=== PATIENT | female | born 1945 | race Caucasian/White ===

== ENCOUNTER → 2020-03-26 16:29 | Outpatient (CLI) | payer OTHER, SELFPAY ==
--- NOTE | 2020-03-26 | DI.MG.S_ITS ---
BILATERAL DIGITAL SCREENING MAMMOGRAM 3D/2D WITH CAD: 03/26/2020 CLINICAL: Routine screening. Comparison is made to exams dated: 11/20/2013 mammogram and 02/07/2015 mammogram - [facility]. There are scattered fibroglandular elements in both breasts. Current study was also evaluated with a Computer Aided Detection (CAD) system. No significant masses, calcifications, or other findings are seen in either breast. There has been no significant interval change. IMPRESSION: NEGATIVE There is no mammographic evidence of malignancy. A 1 year screening mammogram is recommended. This exam was interpreted at Station ID: [id number]. NOTE: For mammograms, a report in lay terms will be sent to the patient. Approximately 15% of breast malignancies will not be visualized mammographically. In the management of a palpable breast mass, a negative mammogram must not discourage biopsy of a clinically suspicious lesion. Electronically Signed By: Mauricio gardner/joni:03/26/2020 17:36:31 letter sent: Normal Exam ACR BI-RADS Category 1: Negative [id number]
== END ==
PROVIDERS: Family Provider Physician Assistant; PCP Student in an Organized Health Care Education/Training Program; Referring Provider Student in an Organized Health Care Education/Training Program; Visit Provider Student in an Organized Health Care Education/Training Program
DX: Z12.31 Encounter for screening mammogram for malignant neoplasm of breast (principal)
CPT/HCPCS: 77063; 77067

== ENCOUNTER → 2020-03-29 17:12 | Outpatient (ROUT) | payer OTHER, SELFPAY ==
[2020-03-30 16:13] LABS: Lactoferrin, Fecal Quant <1.00 ug/mL(g) (0.00-7.24)
== END ==
PROVIDERS: Family Provider Physician Assistant; PCP Student in an Organized Health Care Education/Training Program; Visit Provider Student in an Organized Health Care Education/Training Program
DX: R19.7 Diarrhea, unspecified (principal)
CPT/HCPCS: 83631; 87045; 87177; 87899

== ENCOUNTER 2020-04-25 17:34 | Emergency (ER) | payer OTHER, SELFPAY ==
[2020-04-25 17:35] VITALS: BP 189/83; PULSE 64; RESP 16; O2SAT 98
--- NOTE | 2020-04-25 18:29 | ED_ITS ---
HPI - General Adult General Chief complaint: Abdominal Pain Stated complaint: throat issues, trouble swallowing Time Seen by Provider: 04/25/20 17:53 Source: patient Mode of arrival: Ambulatory Limitations: no limitations History of Present Illness HPI narrative: 74F nonsmoker with history of cervical cancer, HTN, H yperlipidemia presents with a chief complaint of inability to eat or drink anything over the course of the day. And he she denies any specific memorable event but states all day long any time she attempts to eat or drink anything she feels it gets ?caught up ?in the bottom of her throat and then she states it comes right back up. She denies any definite history of the same nor any history of endoscopy. She has no runny nose, sore throat or cough. She has no chest pain or shortness of breath. She denies any fever or chills and reports no known history of exposure to persons with COVID. About 1 year ago she suffered the loss of her and understandably has had a very difficult time. She reports difficulty with appetite and unexplained weight loss which her doctor state is due to depression over that time frame. She does not of a significant alcohol history, but does admit the occasional glass of wine Onset (ago): hour(s) Location: neck Related Data Home Medications Medication Instructions Recorded Confirmed amlodipine 10 mg tablet 10 mg PO DAILY 02/10/18 02/10/18 aspirin 81 mg chewable tablet 81 mg PO DAILY 02/10/18 02/10/18 atorvastatin 20 mg tablet 20 mg PO DAILY 02/10/18 02/10/18 Previous Rx's Medication Instructions Recorded esterified estrogens [Menest] 0.625 mg PO QDAY #30 tab 11/04/16 esterified 1 tab PO Q DAY #30 tab 01/21/18 estrogens-methyltestosterone 0.625 mg-1.25 mg tablet estradiol 1.25 gram/actuation 1.25 gram TRANSDERMAL DAILY #50 02/10/18 (0.06%) transdermal gel pump gram Allergies Allergy/AdvReac Type Severity Reaction Status Date / Time lisinopril [LISINOPRIL] Allergy Severe ANGIOEDEMA Verified 04/25/20 19:49 AND COUGH tizanidine [TIZANIDINE] Allergy Severe FACIAL Verified 04/25/20 19:49 SWELLING Review of Systems Constitutional Constitutional: Denies chills, Denies fatigue, Denies fever(s), Denies frequent falls, Denies lethargy and Denies weakness Eyes Eyes: Denies change in vision, Denies eye discharge, Denies irritation and Denies loss of vision ENT Ears, Nose, Mouth, and Throat: Denies change in voice, Denies dizziness, Denies neck pain, Denies sore throat and Denies throat swelling Comments: something in throat Cardiovascular Cardiovascular: Denies chest pain, Denies irregular heart rhythm, Denies l ightheadedness, Denies palpitations, Denies dyspnea, Denies dyspnea on exertion and Denies orthopnea Respiratory Respiratory: Denies cough, Denies dyspnea, Denies dyspnea on exertion and Denies wheezing Gastrointestinal Gastrointestinal: Denies abdominal pain, Denies change in bowel habits, Denies diarrhea, Denies nausea and Denies vomiting Musculoskeletal Musculoskeletal: Denies neck pain and Denies numbness Integumentary/Breasts Skin/Breast: Denies pruritus, Denies erythema, Denies rash and Denies wounds Neurologic Neurologic: Denies behavioral changes, Denies confusion, Denies dizziness, Denies frequent falls, Denies loss of vision, Denies numbness and Denies weakness Psychiatric Psychiatric: Denies anxiety, Denies behavioral changes, Denies confusion, Denies depression, Denies homicidal ideation and Denies suicidal ideation Endocrine Endocrine: Denies fatigue, Denies flushing and Denies palpitations Hematologic/Lymphatic Hematologic/Lymphatic: Denies easy bruising Allergic/Immunologic Allergic/Immunologic: Denies urticaria, Denies throat swelling and Denies wheezing Patient History Medical History Hypertension Surgical History Status post hysterectomy Social History Smoking Status: Never smoker Smoking Status: Never smoker alcohol intake frequency: 0-2 drinks per day Substance Use Type: does not use Exam Narrative Exam Narrative: GENERAL: [74] year old patient appears stated age. Well- nourished, well-developed patient, in mild distress. Holding an emesis bag. No respiratory distress, no difficulties controlling secretions. HEAD: Atraumatic. Normocephalic. EYES: Pupils equal round and reactive. Extraocular motions intact. No scleral icterus. No injection or drainage. ENT: Nose without bleeding, purulent drainage. Throat without erythema, tonsillar hypertrophy or exudate. Airway patent. NECK: Trachea midline. Non tender CARDIOVASCULAR: Regular rate and rhythm without murmurs, gallops, or rubs. RESPIRATORY: Clear to auscultation. Breath sounds equal bilaterally. No wheezes, rales, or rhonchi. GASTROINTESTINAL: Abdomen soft, non-tender, nondistended. EXTREMITIES: No edema or joint tenderness. BACK: Nontender without deformity or crepitance. No flank tenderness. NEURO: AOx3. SKIN: No rash or erythema of visible areas Initial Vital Signs Initial Vital Signs: Vital Signs Pulse Rate 64 04/25/20 17:35 Respiratory Rate 16 04/25/20 17:35 Blood Pressure 189/83 H 04/25/20 17:35 Pulse Oximetry 98 04/25/20 17:35 Course Course Course Narrative: Early in her visit she was given lukewarm kate temo and soon after taking a few sips she vomited it up. At that time IV and labs were ord ered, COVID swab performed an call was placed to surgery. She was given glucagon through the IV and 30 seconds later took another sip of the kate temo. She nearly immediately vomited, this time likely a larger volumes and she had just consumed. After this she still felt a fullness in the bottom of her throat and 3 subsequent attempts at swallowing liquids were met with a recurrence of vomiting. I discussed the case with General surgery and they requested imaging to rule out an masses or lesions. Upon receipt of the CT which noted circumferential thickening of the mid to distal esophagus they suggested patient be transferred to a facility with GI and Thoracic given the potential need for more definitive esophageal care and likely need for intervention that cannot be performed here. Patient and daughter made aware of the diagnosis and plan. They understand and agree. Orders Ordered: ED Orders 04/25/20 18:43 Complete Blood Count AUTO DIFF Stat Comprehensive Metabolic Panel Stat Ketones (Beta-Hydroxybutyrate) Stat 04/25/20 19:27 COVID19 Stat 04/25/20 19:46 CT chest abd pel w con Urgent Sodium Chloride (Normal Saline 0.9%) 1,000 mls @ 125 mls/hr IV CONT JESSICA Last Admin: 04/25/20 19:11 Dose: 125 mls/hr Documented by: KERRIE Discontinued Medications Glucagon (Glucagon,Human Recombinant 1 Mg/Ml Vial) 1 mg IV NOW ONE Stop: 04/25/20 19:29 Last Admin: 04/25/20 19:50 Dose: 1 mg Documented by: KERRIE Consultations Consultation #1: inital call to Dr. Stanford. Requests imaging, and upon completion of imaging states his concern regarding the findings of the distal esophagus and recommends transfer (noted above in more detail) Consultation #2: call to [facility], and transfer coordinated by them. Available bed at [place] and accepting provider is Dr. Benavidez. Vital Signs Vital signs: Vital Signs - 8 hr 04/25/20 17:35 04/25/20 21:10 04/25/20 22:57 Pulse Rate 64 70 63 Respiratory Rate 16 20 14 Blood Pressure 189/83 H 178/86 H 164/77 H Pulse Oximetry 98 98 95 Medical Decision Making Lab Data Result diagrams: 04/25/20 18:43 04/25/20 18:43 Labs: Lab Results 04/25/20 04/25/20 04/25/20 Range/Units 18:43 18:43 18:43 WBC 4.3 L (4.5-11.0) X10^3/uL RBC 3.83 L (4.0-5.2) X10^6/uL Hgb 13.2 (12.0-16.0) g/dL Hct 38.7 (36-46) % MCV 101.0 H (80-100) fL MCH 34.4 H (26-34) PG MCHC 34.1 (30-36) % RDW 13.9 (11.6-14.8) % Plt Count 216 (150-400) X10^3/uL Neut % (Auto) 60.7 (50-75) % Lymph % (Auto) 24.8 L (25-40) % [place] % (Auto) 9.2 (3-14) % Eos % (Auto) 4.1 H (2-4) % Baso % (Auto) 1.2 (0-2) % Neut # (Auto) 2600 (6139-3551) /uL Lymph # (Auto) 1100 (1795-0348) /uL [place] # (Auto) 400 (0-900) /uL Eos # (Auto) 200 (0-450) /uL Baso # (Auto) 100 (0-100) /uL Sodium 140 (137-145) mmol/L Potassium 4.6 (3.4-5.1) mmol/L Chloride 106 (98-107) mmol/L Carbon Dioxide 32 (22-32) mmol/L BUN 22 H (7-17) mg/dL Creatinine 1.19 H (0.52-1.04) mg/dL Estimated GFR 44.5 L (>60) mL/min BUN/Creatinine Ratio 18.5 (6-22) Glucose 95 (80-110) mg/dL Calcium 9.7 (8.4-10.2) mg/dL Total Bilirubin 1.0 (0.2-1.3) mg/dL AST TNP ALT 16 (<35) IU/L Alkaline Phosphatase 42 (38-126) U/L Total Protein 8.0 (6.3-8.2) g/dL Albumin 4.3 (3.5-5.0) g/dL Globulin 3.7 (1.7-4.1) g/dL Albumin/Globulin Ratio 1.2 (1.0-2.8) Ketones 0.58 H (<0.27) mmol/L COVID-19 PCR (Negative) 04/25/20 Range/Units 19:27 WBC (4.5-11.0) X10^3/uL RBC (4.0-5.2) X10^6/uL Hgb (12.0-16.0) g/dL Hct (36-46) % MCV (80-100) fL MCH (26-34) PG MCHC (30-36) % RDW (11.6-14.8) % Plt Count (150-400) X10^3/uL Neut % (Auto) (50-75) % Lymph % (Auto) (25-40) % [place] % (Auto) (3-14) % Eos % (Auto) (2-4) % Baso % (Auto) (0-2) % Neut # (Auto) (1538-0965) /uL Lymph # (Auto) (2776-7280) /uL [place] # (Auto) (0-900) /uL Eos # (Auto) (0-450) /uL Baso # (Auto) (0-100) /uL Sodium (137-145) mmol/L Potassium (3.4-5.1) mmol/L Chloride (98-107) mmol/L Carbon Dioxide (22-32) mmol/L BUN (7-17) mg/dL Creatinine (0.52-1.04) mg/dL Estimated GFR (>60) mL/min BUN/Creatinine Ratio (6-22) Glucose (80-110) mg/dL Calcium (8.4-10.2) mg/dL Total Bilirubin (0.2-1.3) mg/dL AST ALT (<35) IU/L Alkaline Phosphatase (38-126) U/L Total Protein (6.3-8.2) g/dL Albumin (3.5-5.0) g/dL Globulin (1.7-4.1) g/dL Albumin/Globulin Ratio (1.0-2.8) Ketones (<0.27) mmol/L COVID-19 PCR Negative (Negative) Urine Dip Bedside Urine Glucose Negative Bedside Urine Bilirubin - Negative Bedside Urine Ketone +/- 5 Urine Specific [place] 1.010 Bedside Urine Occult Blood - Negative Bedside Urine pH 7.5 Bedside Urine Urobilinogen - Negative Bedside Urine Nitrite - Negative Bedside Urine Leukocytes - Negative Esterase Point of care testing: Urine Dip Bedside Urine Glucose Negative Bedside Urine Bilirubin - Negative Bedside Urine Ketone +/- 5 Urine Specific [place] 1.010 Bedside Urine Occult Blood - Negative Bedside Urine pH 7.5 Bedside Urine Urobilinogen - Negative Bedside Urine Nitrite - Negative Bedside Urine Leukocytes - Negative Esterase Critical Care Time Critical Care Time Critical Care Time: Yes Total Critical Care Time: 30 Attestation: The high probability of a clinically significant, sudden or life threatening deterioration of the [GI] system(s) required my full and direct attention, intervention and personal management. The aggregate critical care time was [30] minutes. This time is in addition to time spent performing reported procedures but includes the following: [x] Data Review and interpretation [x Patient assessment and monitoring of vital signs [x] Documentation [x Medication orders and management Discharge Plan Departure Patient Disposition: [facility] Clinical Impression: Distal esophageal obstruction due to foreign body Prescriptions: No Action esterified estrogens [Menest] 0.625 MG tablet 0.625 mg PO QDAY Qty: 30 RF: 6 estrogens-methyltestosterone [EEMT HS] 0.625-1.25 mg tablet 1 tab PO Q DAY Qty: 30 RF: 3 amlodipine 10 mg tablet 10 mg PO DAILY RF: 0 aspirin 81 mg tablet,chewable 81 mg PO DAILY RF: 0 atorvastatin [Lipitor] 20 mg tablet 20 mg PO DAILY RF: 0 estradiol 1.25 gram/actuation gel in metered-dose pump 1.25 gram Transdermal DAILY Qty: 50 RF: 0 Referrals: Gayatri Kamara MD [Primary Care Provider] -
[2020-04-25 18:54] LABS: Add Manual Diff / Slide Review NO; Basophils Absolute Auto 100 /uL (0-100); Basophils Percent Auto 1.2 % (0-2); Eosinophils Absolute Auto 200 /uL (0-450); Eosinophils Percent Auto 4.1 % (2-4); Hematocrit 38.7 % (36-46); Hemoglobin 13.2 g/dL (12.0-16.0); Lymphocytes Absolute Auto 1100 /uL (1100-4500); Lymphocytes Percent Auto 24.8 % (25-40); Mean Corpuscular HGB Conc 34.1 % (30-36); Mean Corpuscular Hemoglobin 34.4 PG (26-34); Monocytes Absolute Auto 400 /uL (0-900); Monocytes Percent Auto 9.2 % (3-14); Neutrophils Absolute Auto 2600 /uL (1500-7000); Neutrophils Percent Auto 60.7 % (50-75); Platelet Count 216 X10^3/uL (150-400); Red Blood Cell Count 3.83 X10^6/uL (4.0-5.2); Red Cell Distribution Width 13.9 % (11.6-14.8); White Blood Cell Count 4.3 X10^3/uL (4.5-11.0)
[2020-04-25] MEDS: SODIUM CHLORIDE 0.9% 1,000 ML 125 ML IV (19:11)
[2020-04-25 19:12] LABS: Alanine Aminotransferase 16 IU/L (<35); Albumin 4.3 g/dL (3.5-5.0); Albumin Globulin Ratio 1.2 (1.0-2.8); Alkaline Phosphatase 42 U/L (38-126); BUN Creatinine Ratio 18.5 (6-22); Blood Urea Nitrogen 22 mg/dL (7-17); Calcium 9.7 mg/dL (8.4-10.2); Carbon Dioxide 32 mmol/L (22-32); Chloride 106 mmol/L (98-107); Estimated Glomerular Filt Rate 44.5 mL/min (>60); Globulin 3.7 g/dL (1.7-4.1); Glucose 95 mg/dL (80-110); HEMOLYSIS 73 (0-50); Potassium 4.6 mmol/L (3.4-5.1); Sodium 140 mmol/L (137-145)
[2020-04-25 19:14] LABS: Ketones (Beta-Hydroxybutyrate) 0.58 mmol/L (<0.27)
--- NOTE | 2020-04-25 19:19 | PC.NURSE ---
Patient was able to drink some kate temo without vomiting. She was expressing some discomfort as she sat up to drink stating that she felt like there was fluid that was trying to come up. provider aware.
--- NOTE | 2020-04-25 19:25 | PC.NURSE ---
Pt unable to keep PO fluids down,Dr Douglas aware
--- NOTE | 2020-04-25 19:46 | DI.CT.S_ITS ---
PROCEDURE: CT CHEST ABD PEL W CON INDICATIONS: malnutrition, weight loss, esophageal obstruction, per surge TECHNIQUE: After the administration of intravenous contrast, 5 mm thick sections acquired from the lung apices to the symphysis. 2.5 mm thick coronal and sagittal reformats were acquired. Additional 7 mm thick coronal maximum intensity projection (MIP) reformats acquired through the lungs. Optional 10-minute delayed imaging may be performed from the kidneys to the bladder. For radiation dose reduction, the following was used: automated exposure control, adjustment of mA and/or kV according to patient size. COMPARISON: None. FINDINGS: Image quality: Excellent. CHEST: Lungs: No pulmonary contusions or lacerations. There is a pleural-based 0.6 x 0.9 cm nodule with minimal adjacent ground-glass opacity involving the posterior. Lungs are otherwise clear without evidence for acute airspace opacities. No pneumothorax or hemothorax. Central and peripheral airways appear patent and normal in caliber. Mediastinum: No mediastinal hematomas. Heart size is normal. No pericardial effusion. Thoracic aorta and pulmonary arteries demonstrate normal size and enhancement. No mediastinal or hilar adenopathy. Esophagus is normal in caliber but fluid-filled. There is suggestion of minimal circumferential esophageal wall thickening from the level of the aortic arch to the gastroesophageal junction. There is also a nonspecific hypoattenuating focus measuring 1.0 x 2.4 cm in transverse dimension (axial image 27, series 2) and 4.2 cm in craniocaudal dimension (sagittal image 50, series 5). There is no adjacent inflammatory stranding. This intimately abuts the anterior cortex of the adjacent vertebral body. No osseous erosions. This may represent a lymphocele.. No hiatal hernia; however, there are apparent postsurgical changes slightly distal to the gastroesophageal junction with focal dilatation of the proximal stomach. This may represent sequela previous fundoplication procedure. There is decompression and focal thickening of the adjacent segment of stomach. The distal stomach and gastric antrum/pylorus are decompressed. Chest wall: No rib fractures. No subcutaneous emphysema. No axillary or supraclavicular adenopathy. Thyroid gland is unremarkable. ABDOMEN: Solid organs: Liver is normal in size and enhancement, without lacerations. Gallbladder contains multiple gallstones. No evidence for acute cholecystitis. . Biliary system is non-dilated. Pancreas enhances normally, without transection. Spleen is normal in size and enhancement, without lacerations. No adrenal hematomas. Both kidneys enhance normally, without hydronephrosis or lacerations. Small extrarenal pelvis on the left. Peritoneum and bowel: No free fluid or air. Unenhanced bowel loops demonstrate normal wall thickness and caliber. Nodes and vessels: No retroperitoneal or mesenteric adenopathy. Aorta and inferior vena cava are normal in size and enhancement. Multiple surgical clips are noted along the infrarenal aorta and pelvic sidewall bilaterally.Scattered atherosclerotic calcifications of the abdominal aorta and iliac vessels without aneurysmal dilatation. Miscellaneous: No ventral hernias. PELVIS: Genitourinary: Bladder wall thickness is normal for degree of distension. Miscellaneous: No inguinal hernias or adenopathy. Bones: Pelvic ring and hip joints appear intact. No acute vertebral compression fractures. No suspicious bony lesions. IMPRESSION: 1. A 9 mm pleural-based nodule involving the right lower lobe likely related to an inflammatory nodule. Follow-up CT in 3 months is recommended to document stability versus resolution. 2. Mild circumferential esophageal wall thickening of the mid and lower esophagus. There is also apparent postsurgical changes near the gastroesophageal junction and proximal stomach with mild wall thickening of the segment of stomach adjacent to surgical change. Consider nonemergent evaluation with direct visualization to further characterize. 3. Multiple surgical clips scattered along the infrarenal abdominal aorta and bilateral pelvic sidewall. No evidence for abdominal or pelvic adenopathy. 4. Nonspecific attenuation lesion noted adjacent to the esophagus near the level of the marci. This may represent a lymphocele as it is in approximation to the adjacent vertebral body. No acute inflammatory changes or evidence for osseous erosions. 5. Cholelithiasis without CT evidence for acute cholecystitis. Other chronic findings as above. Dictated by: Kvng Beverly M.D. on 04/25/2020 at 20:17 Approved by: Kvng Beverly M.D. on 04/25/2020 at 20:39
[2020-04-25 19:50] LABS: COVID19 -Nasal RAPID Negative (Negative)
[2020-04-25] MEDS: GLUCAGON,HUMAN RECOMBINANT 1 MG/ML VIAL IV (19:50)
[2020-04-25 21:10] VITALS: BP 178/86; PULSE 70; RESP 20; O2SAT 98
[2020-04-25 22:57] VITALS: BP 164/77; PULSE 63; RESP 14; O2SAT 95
[2020-04-25 23:12] VITALS: PULSE 67; O2SAT 95
[2020-04-25 23:30] VITALS: PULSE 75; O2SAT 96
[2020-04-25 23:31] VITALS: BP 163/73; PULSE 71; O2SAT 96
== END 2020-04-25 23:49 | disposition short-term general hospital (02) ==
PROVIDERS: Emergency Provider Emergency Medicine; Family Provider Physician Assistant; PCP Student in an Organized Health Care Education/Training Program; Referring Provider Emergency Medicine
DX: K22.2 Esophageal obstruction (principal); T18.108A Unspecified foreign body in esophagus causing other injury, initial encounter; I10 Essential (primary) hypertension; E78.5 Hyperlipidemia, unspecified; Z85.41 Personal history of malignant neoplasm of cervix uteri
CPT/HCPCS: 36415; 71260; 74177; 80053; 81003; 82009; 85025; 87635; 96361; 96374; 99282; 99291; J1610; Q9967

== ENCOUNTER → 2021-01-21 13:48 | Outpatient (CLI) | payer OTHER, SELFPAY ==
--- NOTE | 2021-01-21 | DI.RAD.S_ITS ---
PROCEDURE: XR DEXA AXIAL SKELETON INDICATIONS: screening COMPARISON: None. FINDINGS: This blank DEXA report has been sent in error by the PACS system. The correct and complete report will be forthcoming in 1-2 days. Thank you for your patience and understanding. Dictated by: Eloina Friend MD, PhD on 01/22/2021 at 7:04 Approved by: Eloina Friend MD, PhD on 01/22/2021 at 7:04
--- NOTE | 2021-01-21 | DI.CT.S_ITS ---
PROCEDURE: CT CHEST WO CON INDICATIONS: Other nonspecific abnormal finding of lung field TECHNIQUE: Noncontrast 5 mm thick sections acquired from the pulmonary apices to the posterior costophrenic angles. 1 mm lung window, 5 mm thick coronal and sagittal and 7 mm axial MIP reformats were then acquired. For radiation dose reduction, the following was used: automated exposure control, adjustment of mA and/or kV according to patient size. COMPARISON: [facility], CT, CT CHEST ABD PEL W CON, 04/25/2020, 19:47. FINDINGS: Image quality: Excellent. Lungs and pleura: No acute air space opacities. No pleural effusions or pneumothorax. Central and peripheral airways are patent and normal in caliber. Pleural-based 0.9 cm ground-glass opacity in the posterior aspect of the right lower lobe on series 4, image 137. Mediastinum: Heart size is normal. No pericardial effusion. No mediastinal adenopathy by size criteria. Thoracic aorta and central pulmonary arteries are normal in size. Esophagus is normal in caliber. No hiatal hernia. Bones and chest wall: No suspicious bony lesions. No vertebral body compression fractures. No axillary or supraclavicular adenopathy by size criteria. Thyroid gland is unremarkable. Abdomen: Gallstone is noted. No wall thickening change. Otherwise, visualized upper abdominal solid organs and bowel loops appear normal in the absence of contrast. IMPRESSION: 1. Unchanged right lower lobe ground glass opacity. Continued followup as below based on size and initial visualization date. 2. Unchanged cholelithasis. Fleischner Society criteria for SUB-SOLID lung nodule followup. Solitary pure ground-glass nodules<6 mm (ground glass or part solid)No followup needed. 6 mm or larger (ground glass)CT at 6-12 months to confirm persistence, then CT every 2 years until 5 years.6 mm or larger (part solid)CT at 3-6 months to confirm persistence, then annual CT until 5 years if unchanged and solid component remains <6 mm. Multiple sub-solid nodules<6 mmCT at 3-6 months, then CT consider at 2 & 4 years for high risk patients. [address] at 3-6 months. Subsequent management based on most suspicious lesions. Recommendations do not apply to lung cancer screening, patients with immunosuppression, or patients with known primary cancer. Dictated by: Venecia Davila M.D. on 01/21/2021 at 16:54 Approved by: Venecia Davila M.D. on 01/21/2021 at 17:04
== END ==
PROVIDERS: Family Provider Physician Assistant; PCP Student in an Organized Health Care Education/Training Program; Referring Provider Student in an Organized Health Care Education/Training Program; Visit Provider Student in an Organized Health Care Education/Training Program
DX: Z78.0 Asymptomatic menopausal state (principal); R91.8 Other nonspecific abnormal finding of lung field; K80.20 Calculus of gallbladder without cholecystitis without obstruction; Z90.722 Acquired absence of ovaries, bilateral; Z82.62 Family history of osteoporosis; Z87.891 Personal history of nicotine dependence
CPT/HCPCS: 71250; 77080

== ENCOUNTER 2021-02-04 12:32 | Emergency (ER) | payer OTHER, SELFPAY ==
[2021-02-04 13:05] VITALS: BP 128/72; PULSE 86; RESP 16; TEMP 36.4; O2SAT 99; BMI 26.9
[2021-02-04] MEDS: ONDANSETRON 4 MG/2 ML INJ IV (13:44)
[2021-02-04 14:11] LABS: Add Manual Diff / Slide Review NO; Basophils Absolute Auto 0 /uL (0-100); Basophils Percent Auto 0.8 % (0-2); Eosinophils Absolute Auto 200 /uL (0-450); Eosinophils Percent Auto 3.6 % (2-4); Hematocrit 40.6 % (36-46); Hemoglobin 13.3 g/dL (12.0-16.0); Lymphocytes Absolute Auto 1000 /uL (1100-4500); Lymphocytes Percent Auto 21.5 % (25-40); Mean Corpuscular HGB Conc 32.8 % (30-36); Mean Corpuscular Hemoglobin 31.5 PG (26-34); Monocytes Absolute Auto 400 /uL (0-900); Monocytes Percent Auto 8.1 % (3-14); Neutrophils Absolute Auto 3100 /uL (1500-7000); Platelet Count 216 X10^3/uL (150-400); Red Blood Cell Count 4.23 X10^6/uL (4.0-5.2); Red Cell Distribution Width 14.1 % (11.6-14.8); White Blood Cell Count 4.7 X10^3/uL (4.5-11.0)
[2021-02-04 14:14] VITALS: BP 145/87; PULSE 78; O2SAT 99
[2021-02-04 14:15] LABS: Alanine Aminotransferase 15 IU/L (<35); Albumin 4.3 g/dL (3.5-5.0); Albumin Globulin Ratio 1.3 (1.0-2.8); Alkaline Phosphatase 61 U/L (38-126); Aspartate Aminotransferase 34 IU/L (14-36); BUN Creatinine Ratio 14.5 (6-22); Bilirubin Total 0.8 mg/dL (0.2-1.3); Blood Urea Nitrogen 20 mg/dL (7-17); Calcium 10.1 mg/dL (8.4-10.2); Carbon Dioxide 35 mmol/L (22-32); Chloride 103 mmol/L (98-107); Estimated Glomerular Filt Rate 37.4 mL/min (>60); Globulin 3.4 g/dL (1.7-4.1); Glucose 95 mg/dL (80-110); HEMOLYSIS < 15 (0-50); Lipase 145 U/L (23-300); Potassium 4.7 mmol/L (3.4-5.1); Sodium 142 mmol/L (137-145); Total Protein 7.7 g/dL (6.3-8.2)
[2021-02-04 14:30] VITALS: PULSE 69; O2SAT 100
--- NOTE | 2021-02-04 14:48 | DI.CT.S_ITS ---
PROCEDURE: CT ABDOMEN PELVIS W CON INDICATIONS: Emesis, history of SBO TECHNIQUE: After the administration of intravenous contrast, axial sections acquired from the lung bases to the pubic symphysis. Coronal and sagittal reformats were performed. For radiation dose reduction, the following was used: automated exposure control, adjustment of mA and/or kV according to patient size. COMPARISON: [facility], CT, CT CHEST ABD PEL W CON, 04/25/2020, 19:47. FINDINGS: Image quality: Diagnostic Lung bases: Lung bases are clear Heart: No significant findings. ABDOMEN: Liver: Unremarkable. Gallbladder: Multiple gallstones as before. No CT evidence for acute cholecystitis. Biliary ducts: Unremarkable. Pancreas: Unremarkable. Spleen: Unremarkable. Adrenal Glands: Unremarkable. Kidneys and Ureters: Kidneys are symmetric in size and enhancement, and there is no obstructive uropathy. No perinephric inflammatory changes. Ureters are normal in course and caliber. Stomach and Bowel: Small hiatal hernia with stable postsurgical changes distal to the level of the gastroesophageal junction with focal dilatation of the proximal stomach. This is again likely related to sequela of previous fundoplication procedure. As before, distal to surgical suture line compare is decompressed appearance of the distal gastric antrum and pylorus. Otherwise, no evidence for bowel obstruction. Colon is decompressed. Mild circumferential thickening of the rectum without acute inflammatory changes. This is likely related to decompressed state. Peritoneum: No abnormal intraperitoneal fluid. No free air. Ventral Wall: No hernia. Abdominal Nodes: No retroperitoneal or mesenteric adenopathy by size criteria. Vessels: Scattered atherosclerotic calcifications of the abdominal aorta and iliac vessels without aneurysmal dilatation. PELVIS: Pelvic Organs: Unremarkable. Bladder: Unremarkable. Pelvic Nodes: No enlarged lymph nodes. Multiple surgical clips along both pelvic sidewalls as before. Miscellaneous: No inguinal hernias are seen. Bones: No acute vertebral body compression fractures. Multilevel spondylitic changes throughout the imaged spine. No suspicious osseous lesions. IMPRESSION: 1. No evidence for small bowel obstruction. 2. Small hiatal hernia with stable postsurgical changes at the level of gastroesophageal junction and proximal stomach with mild wall thickening. This is likely postsurgical in etiology. The distal gastric antrum and pylorus remain decompressed. Consider further evaluation with nonemergent direct visualization as clinically indicated. 3. Cholelithiasis without CT evidence for acute cholecystitis. Other chronic findings as above. No significant changes. Dictated by: Kvng Beverly M.D. on 02/04/2021 at 16:19 Approved by: Kvng Beverly M.D. on 02/04/2021 at 16:29
[2021-02-04] MEDS: SODIUM CHLORIDE 0.9% 1,000 ML 1000 ML IV (14:55)
[2021-02-04 15:00] VITALS: PULSE 72; O2SAT 96
--- NOTE | 2021-02-04 15:11 | DI.RAD.S_ITS ---
PROCEDURE: XR ABDOMEN 1V INDICATIONS: ?SBO TECHNIQUE: One view of the abdomen acquired. COMPARISON: [facility], CT, CT CHEST ABD PEL W CON, 04/25/2020, 19:47. FINDINGS: Surgical changes and devices: Multiple surgical clips project over the left upper abdomen. Multiple surgical clips are noted in the lower pelvis bilaterally. Bowel: Bowel gas pattern is nonspecific without evidence for obstruction. Soft tissues: No suspicious abdominal calcifications. Visualized solid organ contours appear normal in size. Bones: No suspicious bony lesions. IMPRESSION: Abdomen without acute radiographic abnormalities. No definite findings of small bowel obstruction. Dictated by: Kvng Beverly M.D. on 02/04/2021 at 15:44 Approved by: Kvng Beverly M.D. on 02/04/2021 at 15:46
[2021-02-04] MEDS: METOCLOPRAMIDE 10 MG/2 ML INJ IV (15:40)
--- NOTE | 2021-02-04 15:57 | ED_ITS ---
HPI - Nausea/Vomiting/Diarrhea <Ranulfo Leo PA-C - Last Filed: 02/04/21 17:15> General Chief complaint: Nausea/Vomiting/Diarrhea Stated complaint: can't keep anything down, dizzy Time Seen by Provider: 02/04/21 14:28 Source: patient Mode of arrival: Ambulatory Limitations: no limitations History of Present Illness HPI Narrative: 71-year-old female with past medical history hypertension, hy perlipidemia, cervical cancer, status post a fundoplication procedure presents to the ED with 2 days of vomiting. Patient states that she vomited several times yesterday, was dark brown in color. This morning patient had a large bowel movement which was also dark brown, and had repeated episodes of emesis. Patient endorses feeling weak and dehydrated. Patient denies fever, chills, chest pain, shortness of breath, dizziness, syncope, abdominal pain, dysuria. Patient was evaluated by GI in April 2020 and had an endoscopy with findings of a hiatal hernia. Patient's daughter, patient has had prior instances of small-bowel obstruction. Patient had a fundoplication procedure in the past. Related Data Home Medications Medication Instructions Recorded Confirmed amlodipine 10 mg tablet 10 mg PO DAILY 02/10/18 02/10/18 aspirin 81 mg chewable tablet 81 mg PO DAILY 02/10/18 02/10/18 atorvastatin 20 mg tablet (Lipitor) 20 mg PO DAILY 02/10/18 02/10/18 Previous Rx's Medication Instructions Recorded esterified estrogens 0.625 mg 0.625 mg PO QDAY #30 tab 11/04/16 tablet (Menest) esterified 1 tab PO Q DAY #30 tab 01/21/18 estrogens-methyltestosterone 0.625 mg-1.25 mg tablet (EEMT HS) estradiol 1.25 gram/actuation 1.25 gram TRANSDERMAL DAILY #50 02/10/18 (0.06%) transdermal gel pump gram Allergies Allergy/AdvReac Type Severity Reaction Status Date / Time lisinopril [LISINOPRIL] Allergy Severe ANGIOEDEMA Verified 04/25/20 19:49 AND COUGH tizanidine [TIZANIDINE] Allergy Severe FACIAL Verified 04/25/20 19:49 SWELLING Review of Systems <Ranulfo Leo PA-C - Last Filed: 02/04/21 17:15> Constitutional Constitutional: Denies chills, Reports fatigue, Denies fever(s), Denies frequent falls, Denies lethargy and Denies weakness Eyes Eyes: Denies change in vision, Denies eye discharge, Denies irritation and Denies loss of vision ENT Ears, Nose, Mouth, and Throat: Denies change in voice, Denies dizziness, Denies neck pain, Denies sore throat and Denies throat swelling Cardiovascular Cardiovascular: Denies chest pain, Denies irregular heart rhythm, Reports lighth eadedness, Denies palpitations, Denies dyspnea, Denies dyspnea on exertion and Denies orthopnea Respiratory Respiratory: Denies cough, Denies dyspnea, Denies dyspnea on exertion and Denies wheezing Gastrointestinal Gastrointestinal: Denies abdominal pain, Denies change in bowel habits, Denies diarrhea, Reports nausea and Reports vomiting Musculoskeletal Musculoskeletal: Denies neck pain and Denies numbness Integumentary/Breasts Skin/Breast: Denies pruritus, Denies erythema, Denies rash and Denies wounds Neurologic Neurologic: Denies behavioral changes, Denies confusion, Denies dizziness, Denies frequent falls, Denies loss of vision, Denies numbness and Denies weakness Psychiatric Psychiatric: Denies anxiety, Denies behavioral changes, Denies confusion, Denies depression, Denies homicidal ideation and Denies suicidal ideation Endocrine Endocrine: Reports fatigue, Denies flushing and Denies palpitations Hematologic/Lymphatic Hematologic/Lymphatic: Denies easy bruising Allergic/Immunologic Allergic/Immunologic: Denies urticaria, Denies throat swelling and Denies wheezing Patient History <Ranulfo Leo PA-C - Last Filed: 02/04/21 17:15> Medical History Hypertension Surgical History Status post hysterectomy Social History Smoking Status: Current every day smoker Smoking Status: Current every day smoker tobacco type: cigarettes alcohol intake frequency: a few times a week Substance Use Type: does not use Exam <Ranulfo Leo PA-C - Last Filed: 02/04/21 17:15> Initial Vital Signs Initial Vital Signs: Vital Signs Temperature 97.5 F L 02/04/21 13:05 Pulse Rate 86 02/04/21 13:05 Respiratory Rate 16 02/04/21 13:05 Blood Pressure 128/72 02/04/21 13:05 Pulse Oximetry 99 02/04/21 13:05 Const General: cooperative [facility] Head: normocephalic and atraumatic Ears: external ears normal and TM's normal bilaterally Nose: external nose normal and No nasal discharge Face and sinus: sinuses nontender, face symmetric, no sinus tenderness and No dry mucous membranes Mouth: oral mucosae normal and moist mucous membranes Teeth and gingiva: dentition normal Throat: tonsils normal and uvula midline Eyes General: appearance normal, both eyes and all related structures Eyelids: eyelids normal Conjunctivae: conjunctivae normal Sclera: sclerae normal Pupils: PERRL EOM: EOM intact bilaterally Neck Neck: normal visual inspection, trachea midline, No lymphadenopathy, No midline deformity and No JVD Lymphatic: No lymphedema Chest Chest: normal inspection of the chest Resp Effort & Inspection: normal respiratory effort, able to speak in complete sentences, no respiratory distress and no use of accessory muscles Auscultation: clear to auscultation bilaterally, no rales, no rhonchi and no wheezes Cardio Rate: regular rate Rhythm: regular rhythm Heart Sounds: no click, no gallops, no murmurs and no rubs Pulses: normal peripheral pulses GI Inspection: non-distended Palpation: soft, no hepatosplenomegaly, No guarding, No pulsatile mass and No tender Auscultation: normal bowel sounds Other: Abdomen is soft, nontender to palpation, not distended. Negative CVA tenderness. Back/Spine/Pelvis Back: No CVA tenderness Cervical Spine: cervical ROM normal and No pain with cervical ROM Thoracic/Lumbar Spine: thoracic and lumbar spine normal to inspection Skin General: no rashes or lesions noted, No jaundice and No petechiae Neuro General: patient alert, patient oriented x3, gait normal and no focal motor deficits Speech: speech normal Extrem General: full ROM, no clubbing, cyanosis or edema, no pedal edema and no calf tenderness Psych Appearance: well kempt Mental Status: mental status grossly normal Attitude: cooperative Thought Content: normal and suicidality Judgment: judgment good <Shailesh Solis DO - Last Filed: 02/04/21 17:43> Initial Vital Signs Initial Vital Signs: Vital Signs Temperature 97.5 F L 02/04/21 13:05 Pulse Rate 86 02/04/21 13:05 Respiratory Rate 16 02/04/21 13:05 Blood Pressure 128/72 02/04/21 13:05 Pulse Oximetry 99 02/04/21 13:05 Course <Ranulfo Leo PA-C - Last Filed: 02/04/21 17:15> Course Course Narrative: Abdominal x-ray was ordered while patient attempted to drink p.o. contrast. Patient did not tolerate the p.o. contrast due to emesis. Patient was vomiting after Zofran, was given Reglan which contained her emesis. Patient improved with IV hydration. Abdominal x-ray, CT abdomen pelvis, labs negative for acute processes. Patient Gard[place] well enough to go home. Given negative workup, will discharge home with ED return precautions. Orders Ordered: ED Orders 02/04/21 13:45 Complete Blood Count AUTO DIFF Stat Comprehensive Metabolic Panel Stat Lipase Stat 02/04/21 14:48 CT abdomen pelvis w con Stat 02/04/21 15:11 XR abdomen 1V Stat Discontinued Medications Sodium Chloride (Normal Saline 0.9%) 1,000 mls @ 1,000 mls/hr IV BOLUS ONE Stop: 02/04/21 15:46 Last Infusion: 02/04/21 16:39 Dose: 0 mls/hr Documented by: Admin: 02/04/21 14:55 Dose: 1,000 mls/hr Documented by: NAYELI Metoclopramide HCl (Metoclopramide 10 Mg/2 Ml Inj) 10 mg IV NOW ONE Stop: 02/04/21 15:35 Last Admin: 02/04/21 15:40 Dose: 10 mg Documented by: NAYELI Ondansetron HCl (Ondansetron 4 Mg/2 Ml Inj) 4 mg IV NOW ONE Stop: 02/04/21 13:12 Last Admin: 02/04/21 13:44 Dose: 4 mg Documented by: KOFFI Vital Signs Vital signs: Vital Signs - 8 hr 02/04/21 13:05 02/04/21 14:14 02/04/21 14:30 Temperature 97.5 F L Pulse Rate 86 78 69 Respiratory Rate 16 Blood Pressure 128/72 145/87 H Pulse Oximetry 99 99 100 02/04/21 15:00 02/04/21 17:09 Temperature Pulse Rate 72 66 Respiratory Rate 16 Blood Pressure 132/86 Pulse Oximetry 96 100 <Shailesh Solis DO - Last Filed: 02/04/21 17:43> Orders Ordered: ED Orders 02/04/21 13:45 Complete Blood Count AUTO DIFF Stat Comprehensive Metabolic Panel Stat Lipase Stat 02/04/21 14:48 CT abdomen pelvis w con Stat 02/04/21 15:11 XR abdomen 1V Stat Discontinued Medications Sodium Chloride (Normal Saline 0.9%) 1,000 mls @ 1,000 mls/hr IV BOLUS ONE Stop: 02/04/21 15:46 Last Infusion: 02/04/21 16:39 Dose: 0 mls/hr Documented by: Admin: 02/04/21 14:55 Dose: 1,000 mls/hr Documented by: NAYELI Metoclopramide HCl (Metoclopramide 10 Mg/2 Ml Inj) 10 mg IV NOW ONE Stop: 02/04/21 15:35 Last Admin: 02/04/21 15:40 Dose: 10 mg Documented by: NAYELI Ondansetron HCl (Ondansetron 4 Mg/2 Ml Inj) 4 mg IV NOW ONE Stop: 02/04/21 13:12 Last Admin: 02/04/21 13:44 Dose: 4 mg Documented by: KOFFI Vital Signs Vital signs: Vital Signs - 8 hr 02/04/21 13:05 02/04/21 14:14 02/04/21 14:30 Temperature 97.5 F L Pulse Rate 86 78 69 Respiratory Rate 16 Blood Pressure 128/72 145/87 H Pulse Oximetry 99 99 100 02/04/21 15:00 02/04/21 17:09 Temperature Pulse Rate 72 66 Respiratory Rate 16 Blood Pressure 132/86 Pulse Oximetry 96 100 MDM - Nausea/Vomiting/Diarrhea <Ranulfo Leo PA-C - Last Filed: 02/04/21 17:15> Medical Records Attestation: I reviewed the patient's medical records. Lab Data Attestation: I reviewed the patient's lab results. Lab results narrative: Labs within normal limits Result diagrams: 02/04/21 13:45 02/04/21 13:45 Labs: Lab Results 02/04/21 02/04/21 Range/Units 13:45 13:45 WBC 4.7 (4.5-11.0) X10^3/uL RBC 4.23 (4.0-5.2) X10^6/uL Hgb 13.3 (12.0-16.0) g/dL Hct 40.6 (36-46) % MCV 96.0 (80-100) fL MCH 31.5 (26-34) PG MCHC 32.8 (30-36) % RDW 14.1 (11.6-14.8) % Plt Count 216 (150-400) X10^3/uL Neut % (Auto) 66.0 (50-75) % Lymph % (Auto) 21.5 L (25-40) % Lea % (Auto) 8.1 (3-14) % Eos % (Auto) 3.6 (2-4) % Baso % (Auto) 0.8 (0-2) % Neut # (Auto) 3100 (0039-2399) /uL Lymph # (Auto) 1000 L (4958-1147) /uL Lea # (Auto) 400 (0-900) /uL Eos # (Auto) 200 (0-450) /uL Baso # (Auto) 0 (0-100) /uL Sodium 142 (137-145) mmol/L Potassium 4.7 (3.4-5.1) mmol/L Chloride 103 (98-107) mmol/L Carbon Dioxide 35 H (22-32) mmol/L BUN 20 H (7-17) mg/dL Creatinine 1.38 H (0.52-1.04) mg/dL Estimated GFR 37.4 L (>60) mL/min BUN/Creatinine Ratio 14.5 (6-22) Glucose 95 (80-110) mg/dL Calcium 10.1 (8.4-10.2) mg/dL Total Bilirubin 0.8 (0.2-1.3) mg/dL AST 34 (14-36) IU/L ALT 15 (<35) IU/L Alkaline Phosphatase 61 (38-126) U/L Total Protein 7.7 (6.3-8.2) g/dL Albumin 4.3 (3.5-5.0) g/dL Globulin 3.4 (1.7-4.1) g/dL Albumin/Globulin Ratio 1.3 (1.0-2.8) Lipase 145 (23-300) U/L Urine Dip Bedside Urine Glucose Negative Bedside Urine Bilirubin + 1 Bedside Urine Ketone +/- 5 Urine Specific [place] 1.025 Bedside Urine Occult Blood - Negative Bedside Urine pH 5.5 Bedside Urine Protein - Negative Bedside Urine Urobilinogen - Negative Bedside Urine Nitrite - Negative Bedside Urine Leukocytes - Negative Esterase Imaging Data Abdominal x-ray: Radiologist's Impression: PROCEDURE:? XR ABDOMEN 1V ? INDICATIONS:? ?SBO ? TECHNIQUE:? One view of the abdomen acquired.? ? COMPARISON:? [facility], CT, CT CHEST ABD PEL W CON, 04/25/2020, 19:47. ? FINDINGS:? ? Surgical changes and devices:? Multiple surgical clips project over the left upper abdomen.? Multiple surgical clips are noted in the lower pelvis bilaterally. ? Bowel:? Bowel gas pattern is nonspecific without evidence for obstruction.? ? Soft tissues:? No suspicious abdominal calcifications.? Visualized solid organ contours appear normal in size.? ? Bones:? No suspicious bony lesions.? ? IMPRESSION:? Abdomen without acute radiographic abnormalities.? No definite findings of small bowel obstruction. ? ? Dictated by: Kvng Beverly M.D. on 02/04/2021 at 15:44 ? ? Approved by: Kvng Beverly M.D. on 02/04/2021 at 15:46 ? CT scan - abdomen/pelvis: Radiologist's Impression: PROCEDURE:? CT ABDOMEN PELVIS W CON ? INDICATIONS:? Emesis, history of SBO ? TECHNIQUE:? After the administration of intravenous contrast, axial sections acquired from the lung bases to the pubic symphysis.? Coronal and sagittal reformats were performed.? For radiation dose reduction, the following was used:? automated exposure control, adjustment of mA and/or kV according to patient size.? ? COMPARISON:? [facility], CT, CT CHEST ABD PEL W CON, 04/25/2020, 19:47. ? FINDINGS:? Image quality:? Diagnostic? ? Lung bases:? Lung bases are clear ? Heart:? No significant findings. ? ABDOMEN: Liver:? Unremarkable.? ? Gallbladder:? Multiple gallstones as before.? No CT evidence for acute cholecystitis.? ? Biliary ducts:? Unremarkable.? ? Pancreas:? Unremarkable.? ? Spleen:? Unremarkable.? ? Adrenal Glands:? Unremarkable.? ? Kidneys and Ureters:? Kidneys are symmetric in size and enhancement, and there is no obstructive uropathy.? No perinephric inflammatory changes. Ureters are normal in course and caliber.? Stomach and Bowel:? Small hiatal hernia with stable postsurgical changes distal to the level of the gastroesophageal junction with focal dilatation of the proximal stomach.? This is again likely related to sequela of previous fundoplication procedure.? As before, distal to surgical suture line compare is decompressed appearance of the distal gastric antrum and pylorus.? Otherwise, no evidence for bowel obstruction.? Colon is decompressed.? Mild circumferential thickening of the rectum without acute inflammatory changes.? This is likely related to decompressed state. Peritoneum:? No abnormal intraperitoneal fluid.? No free air.? ? Ventral Wall: ? No hernia.? Abdominal Nodes:? No retroperitoneal or mesenteric adenopathy by size criteria.? Vessels:? Scattered atherosclerotic calcifications of the abdominal aorta and iliac vessels without aneurysmal dilatation.? ? PELVIS: Pelvic Organs:? Unremarkable.? ? Bladder:? Unremarkable.? ? Pelvic Nodes: No enlarged lymph nodes.? Multiple surgical clips along both pelvic sidewalls as before.? Miscellaneous: No inguinal hernias are seen. ? ? ? Bones:? No acute vertebral body compression fractures. Multilevel spondylitic changes throughout the imaged spine.? No suspicious osseous lesions.? ? ? IMPRESSION: ? 1. No evidence for small bowel obstruction. ? 2. Small hiatal hernia with stable postsurgical changes at the level of gastroesophageal junction and proximal stomach with mild wall thickening.? This is likely postsurgical in etiology.? The distal gastric antrum and pylorus remain decompressed.? Consider further evaluation with nonemergent direct visualization as clinically indicated. ? 3.? Cholelithiasis without CT evidence for acute cholecystitis. ? Other chronic findings as above.? No significant changes.? ? Dictated by: Kvng Beverly M.D. on 02/04/2021 at 16:19 ? ? Approved by: Kvng Beverly M.D. on 02/04/2021 at 16:29 ? MDM Narrative Medical decision making narrative: 71-year-old female with past medical history hypertension, hyperlipidemia, cervical cancer, status post a fundoplication procedure presents to the ED with 2 days of vomiting. Concern for SBO versus surgery complications versus pancreatitis versus PUD versus gastroenteritis. Will order labs, lipase, CT abdomen pelvis. Will give IV hydration, Zofran for symptoms. Will reassess. <Shailesh Solis, DO - Last Filed: 02/04/21 17:43> Lab Data Labs: Lab Results 02/04/21 02/04/21 Range/Units 13:45 13:45 WBC 4.7 (4.5-11.0) X10^3/uL RBC 4.23 (4.0-5.2) X10^6/uL Hgb 13.3 (12.0-16.0) g/dL Hct 40.6 (36-46) % MCV 96.0 (80-100) fL MCH 31.5 (26-34) PG MCHC 32.8 (30-36) % RDW 14.1 (11.6-14.8) % Plt Count 216 (150-400) X10^3/uL Neut % (Auto) 66.0 (50-75) % Lymph % (Auto) 21.5 L (25-40) % Lea % (Auto) 8.1 (3-14) % Eos % (Auto) 3.6 (2-4) % Baso % (Auto) 0.8 (0-2) % Neut # (Auto) 3100 (5491-3224) /uL Lymph # (Auto) 1000 L (9906-0561) /uL Lea # (Auto) 400 (0-900) /uL Eos # (Auto) 200 (0-450) /uL Baso # (Auto) 0 (0-100) /uL Sodium 142 (137-145) mmol/L Potassium 4.7 (3.4-5.1) mmol/L Chloride 103 (98-107) mmol/L Carbon Dioxide 35 H (22-32) mmol/L BUN 20 H (7-17) mg/dL Creatinine 1.38 H (0.52-1.04) mg/dL Estimated GFR 37.4 L (>60) mL/min BUN/Creatinine Ratio 14.5 (6-22) Glucose 95 (80-110) mg/dL Calcium 10.1 (8.4-10.2) mg/dL Total Bilirubin 0.8 (0.2-1.3) mg/dL AST 34 (14-36) IU/L ALT 15 (<35) IU/L Alkaline Phosphatase 61 (38-126) U/L Total Protein 7.7 (6.3-8.2) g/dL Albumin 4.3 (3.5-5.0) g/dL Globulin 3.4 (1.7-4.1) g/dL Albumin/Globulin Ratio 1.3 (1.0-2.8) Lipase 145 (23-300) U/L Urine Dip Bedside Urine Glucose Negative Bedside Urine Bilirubin + 1 Bedside Urine Ketone +/- 5 Urine Specific [place] 1.025 Bedside Urine Occult Blood - Negative Bedside Urine pH 5.5 Bedside Urine Protein - Negative Bedside Urine Urobilinogen - Negative Bedside Urine Nitrite - Negative Bedside Urine Leukocytes - Negative Esterase Discharge Plan Departure Patient Disposition: Home Clinical Impression: Acute vomiting Instructions: DI for Vomiting -- Adult Activity Restrictions/Additional Instructions: You were evaluated in the ED today for repeated vomiting. Your CT scan, abdominal x-ray, labs were normal. You were treated with IV fluids for hydration Zofran and Reglan for nausea. Please return to the ED if you experience worsening symptoms, vomiting, fever. Prescriptions: No Action esterified estrogens [Menest] 0.625 MG tablet 0.625 mg PO QDAY Qty: 30 RF: 6 estrogens-methyltestosterone [EEMT HS] 0.625-1.25 mg tablet 1 tab PO Q DAY Qty: 30 RF: 3 amlodipine 10 mg tablet 10 mg PO DAILY RF: 0 aspirin 81 mg tablet,chewable 81 mg PO DAILY RF: 0 atorvastatin [Lipitor] 20 mg tablet 20 mg PO DAILY RF: 0 estradiol 1.25 gram/actuation gel in metered-dose pump 1.25 gram Transdermal DAILY Qty: 50 RF: 0 Referrals: Gayatri Kamara MD [Primary Care Provider] - <Shailesh Solis, - Last Filed: 02/04/21 17:43> Cosign ED Attending Cosignature Attestation: Dr Solis Co-Sign Statement: I was available for consultation during this patient's emergency department visit. This chart is signed by myself for administrative purposes only. I did not have direct contact with this patient during this visit. They were seen independently by the APC.
[2021-02-04 17:09] VITALS: BP 132/86; PULSE 66; RESP 16; O2SAT 100
== END 2021-02-04 17:09 | disposition home or self-care (01) ==
PROVIDERS: Emergency Medicine; Emergency Provider Student in an Organized Health Care Education/Training Program; Family Provider Physician Assistant; PCP Student in an Organized Health Care Education/Training Program
DX: R11.10 Vomiting, unspecified (principal)
CPT/HCPCS: 36415; 74018; 74177; 80053; 81003; 83690; 85025; 96361; 96374; 96375; 99284; J2405; J2765; Q9967

== ENCOUNTER 2021-09-18 14:55 | Emergency (ER) | payer MEDICARE, SELFPAY ==
[2021-09-18 14:58] VITALS: BP 150/73; PULSE 94; RESP 18; TEMP 36.8; O2SAT 97; BMI 29.2
--- NOTE | 2021-09-18 16:27 | ED_ITS ---
HPI - Nausea/Vomiting/Diarrhea <Shobha Gonzalez [employer] PAY CLERK - Last Filed: 09/18/21 19:23> General Chief complaint: Nausea/Vomiting/Diarrhea Stated complaint: states hiatal hernia Time Seen by Provider: 09/18/21 16:08 Source: patient Mode of arrival: Ambulatory History of Present Illness HPI Narrative: This is a 76-year-old female presents to the emergency department with 1 week of dyspepsia, epigastric burning and vomiting after attempting to eat food. Her past medical history includes hypertension, hyperlipidemia, cervical cancer, status post a hysterectomy. Patient states that she has vomited everything that she has tried to consume and denies any nausea, she endorses frequent belching, denies abdominal pain, denies changes to her stool but reports it is dark brown in color. Patient states that she used to be on omeprazole for her hiatal hernia but only took it for 2 weeks and then did not have a problem anymore so she was not taking it. Patient denies fever, chills, chest pain, shortness of breath, dizziness, syncope, abdominal pain, dysuria.? Patient was evaluated by GI in April 2020 and had an endoscopy with findings of a hiatal hernia.? Per patient's daughter, patient has had prior instances of small-bowel obstruction but she has had a bowel movement today and yesterday and denies any abdominal pain. Related Data Home Medications Medication Instructions Recorded Confirmed amlodipine 10 mg tablet 10 mg PO DAILY 02/10/18 02/10/18 aspirin 81 mg chewable tablet 81 mg PO DAILY 02/10/18 02/10/18 atorvastatin 20 mg tablet (Lipitor) 20 mg PO DAILY 02/10/18 02/10/18 Previous Rx's Medication Instructions Recorded esterified estrogens 0.625 mg 0.625 mg PO QDAY #30 tab 11/04/16 tablet (Menest) esterified 1 tab PO Q DAY #30 tab 01/21/18 estrogens-methyltestosterone 0.625 mg-1.25 mg tablet (EEMT HS) estradiol 1.25 gram/actuation 1.25 gram TRANSDERMAL DAILY #50 02/10/18 (0.06%) transdermal gel pump gram metoclopramide HCl 10 mg tablet 10 mg PO QACHS #14 tab 09/18/21 (Reglan) omeprazole 20 mg capsule,delayed 20 mg PO DAILY #30 cap 09/18/21 release ondansetron 4 mg disintegrating 4 mg PO Q8H PRN #14 tab 09/18/21 tablet sucralfate 100 mg/mL oral 10 ml PO QACHS #1000 ml 09/19/21 suspension (Carafate) Allergies Allergy/AdvReac Type Severity Reaction Status Date / Time lisinopril [LISINOPRIL] Allergy Severe ANGIOEDEMA Verified 04/25/20 19:49 AND COUGH tizanidine [TIZANIDINE] Allergy Severe FACIAL Verified 04/25/20 19:49 SWELLING warfarin [From Coumadin] Allergy Unknown Verified 09/18/21 15:02 Review of Systems <YU Do - Last Filed: 09/18/21 19:23> Review of Systems Narrative: General: denies fever, chills, malaise, sweats, fatigue Head/Neck: denies headache, neck pain, dizziness Eyes: denies visual changes, eye pain Cardio: denies chest pain, palpitations, edema Respiratory: denies dyspnea, cough, orthopnea GI: denies abdominal pain, nausea, or diarrhea, endorses vomiting when she tries to swallow something : denies dysuria, hematuria, urinary retention, frequency or incontinence MSK: denies joint pain, muscle weakness Skin: denies rash, itching, skin lesions or other Neuro: denies numbness, tingling Patient History <YU Do - Last Filed: 09/18/21 19:23> Medical History Hypertension Surgical History Status post hysterectomy Social History Smoking Status: Current every day smoker Smoking Status: Current every day smoker tobacco type: cigarettes alcohol intake frequency: a few times a week Substance Use Type: does not use Exam <YU Do - Last Filed: 09/18/21 19:23> Narrative Exam Narrative: Independently reviewed vitals signs and nursing notes. General: cooperative, comfortable, in no acute distress, well developed and well groomed, forgetful Head: atraumatic, symmetrical facial expressions Neck: supple, atraumatic, without lymphadenopathy. Eyes: pupils equal round and reactive, EOMI, conjunctiva normal Nose: nares patent, no rhinorrhea Mouth/Throat: uvula midline, moist mucus membranes Cardiovascular: regular rate and rhythm, no peripheral edema, warm extremities Respiratory: normal effort, able to speak in complete sentences, no audible wheezing, stridor, or rales. No retractions or tachypnea. GI: abdomen soft, nontender to palpation x4 quadrants, nondistended, no masses, no exquisite tenderness with exam, without guarding or rebound. Pain over epigastrium with deep palpation, GI cocktail was helpful for her epigastric pain MSK: moves all extremities, ambulatory w/steady gait, neurovascularly intact, no weakness Skin: brisk capillary refill, no rash, no erythema Neuro: normal speech and cognition, A&O x3, normal tone Psych: mental status is grossly normal, congruent mood, normal affect, pleasant and cooperative Initial Vital Signs Initial Vital Signs: Vital Signs Temperature 98.3 F 09/18/21 14:58 Pulse Rate 94 H 09/18/21 14:58 Respiratory Rate 18 09/18/21 14:58 Blood Pressure 150/73 H 09/18/21 14:58 Pulse Oximetry 97 09/18/21 14:58 <Yovana Garcia DO - Last Filed: 09/23/21 07:28> Initial Vital Signs Initial Vital Signs: Vital Signs Temperature 98.3 F 09/18/21 14:58 Pulse Rate 94 H 09/18/21 14:58 Respiratory Rate 18 09/18/21 14:58 Blood Pressure 150/73 H 09/18/21 14:58 Pulse Oximetry 97 09/18/21 14:58 Course <YU Do - Last Filed: 09/18/21 19:23> Orders Ordered: Discontinued Medications Al Hydrox/Mg Hydrox/Simethicone 20 ml/ Lidocaine HCl 15 ml 0 ml PO NOW ONE Stop: 09/18/21 16:27 Last Admin: 09/18/21 16:58 Dose: 35 ml Documented by: ABHAY Metoclopramide HCl (Metoclopramide Hcl 10 Mg Tablet) 10 mg PO NOW ONE Stop: 09/18/21 16:30 Last Admin: 09/18/21 17:06 Dose: 10 mg Documented by: ABHAY Ondansetron HCl (Ondansetron 4 Mg Odt) 4 mg SL NOW ONE Stop: 09/18/21 16:28 Last Admin: 09/18/21 17:20 Dose: Not Given Documented by: ABHAY Ondansetron HCl (Ondansetron 4 Mg Odt) 4 mg SL NOW ONE Stop: 09/18/21 17:11 Last Admin: 09/18/21 17:12 Dose: 4 mg Documented by: ABHAY Pantoprazole Sodium (Pantoprazole Dr 20 Mg Tablet) 20 mg PO NOW ONE Stop: 09/18/21 16:27 Last Admin: 09/18/21 16:58 Dose: 20 mg Documented by: ABHAY Vital Signs Vital signs: Vital Signs - 8 hr 09/18/21 14:58 09/18/21 17:52 Temperature 98.3 F Pulse Rate 94 H 79 Respiratory Rate 18 Blood Pressure 150/73 H 122/74 Pulse Oximetry 97 96 <Yovana Garcia DO - Last Filed: 09/23/21 07:28> Orders Ordered: Discontinued Medications Al Hydrox/Mg Hydrox/Simethicone 20 ml/ Lidocaine HCl 15 ml 0 ml PO NOW ONE Stop: 09/18/21 16:27 Last Admin: 09/18/21 16:58 Dose: 35 ml Documented by: ABHAY Metoclopramide HCl (Metoclopramide Hcl 10 Mg Tablet) 10 mg PO NOW ONE Stop: 09/18/21 16:30 Last Admin: 09/18/21 17:06 Dose: 10 mg Documented by: ABHAY Ondansetron HCl (Ondansetron 4 Mg Odt) 4 mg SL NOW ONE Stop: 09/18/21 16:28 Last Admin: 09/18/21 17:20 Dose: Not Given Documented by: ABHAY Ondansetron HCl (Ondansetron 4 Mg Odt) 4 mg SL NOW ONE Stop: 09/18/21 17:11 Last Admin: 09/18/21 17:12 Dose: 4 mg Documented by: ABHAY Pantoprazole Sodium (Pantoprazole Dr 20 Mg Tablet) 20 mg PO NOW ONE Stop: 09/18/21 16:27 Last Admin: 09/18/21 16:58 Dose: 20 mg Documented by: ABHAY Vital Signs Vital signs: Vital Signs - 8 hr 09/18/21 14:58 09/18/21 17:52 Temperature 98.3 F Pulse Rate 94 H 79 Respiratory Rate 18 Blood Pressure 150/73 H 122/74 Pulse Oximetry 97 96 [facility] - Nausea/Vomiting/Diarrhea <Shobha YU Hammonds - Last Filed: 09/18/21 19:23> [facility] Narrative Medical decision making narrative: This is a pleasant 76-year-old female who presents to the emergency department with vomiting every time she tries to eat something, dyspepsia, frequent belching, history of stomach stable in the past and hiatal hernia found on advanced imaging within a 3 months prior history of Justin fundoplication and history of hysterectomy. Patient states she took omeprazole for 2 weeks when she found out about her hiatal hernia and had symptoms identical to her symptoms today which include vomiting after eating, belching, and epigastric pain. She states that her symptoms improved on omeprazole but stopped taking because she got better and did not have any further symptoms. She has not had an endoscopy or colonoscopy. Patient's lab work today does not reveal any leukocytosis or anemia, creatinine is stable at 1.38, no elevation in her liver enzymes, UA was negative for leukocytes, bacteria, blood. Patient denies any recent trauma, denies any changes to her stool, denies nausea, denies any changes to her medications. This is most likely GERD or esophagitis, this could also be peptic ulcer disease, H pylori, achalasia, or other esophageal itis problems. This could be gastritis or nonulcer dyspepsia. Patient has omeprazole at home, encouraged her to start taking this daily until she is able to follow-up with her primary care provider or have a upper endoscopy. Urged her to follow-up with her care provider for referral to 1, Dr. Morillo[id number] his she is able to schedule a endoscopy. Patient has multiple CT images the images past, there is no change compared with her prior symptoms per their report, she does not have any emergent causes to her symptoms on her workup today, encouraged them to use omeprazole, Zofran, Reglan, and Pepto- Bismol as needed for her symptoms and to return to the emergency department for any worsening. She was encouraged to avoid NSAIDs, follow a GERD diet and avoid fat. She has a history of gallstones without cholecystitis, she was nontender over her right upper quadrant. No peritoneal signs on abdominal exam. Patient remains p.o. tolerant. Serial abdominal exam without increase in abdominal pain. Given history and exam, low suspicion for acute abdominal process, such as acute cholecystitis, pancreatitis, perforated viscus, atypical appendicitis, colitis, diverticulitis or torsion. Extensive conversation about ER return precautions and need for close follow-up. Patient understands to follow-up with primary care provider for endoscopy and to return to the emergency department for any worsening in her wrist symptoms, to continue taking omeprazole for the next 2+ weeks. Patient is appropriate and amenable to discharge home. Vital signs are stable on repeat examination is unremarkable. Patient has been informed of results. Patient has been given strict return to ER precautions for any new or worsening symptoms. Patient understands to follow up closely with outpatient providers as instructed. Patient understands plan and agrees to discharge home. All questions and concerns answered at this time. Discharge Plan Departure Patient Disposition: Home Clinical Impression: Acid reflux Qualifiers: Esophagitis presence: with esophagitis Esophagitis bleeding: without hemorrhage Qualified Code(s): K21.00 - Gastro-esophageal reflux disease with esophagitis, without bleeding Vomiting Qualifiers: Vomiting type: unspecified Nausea presence: without nausea Qualified Code(s): R11.11 - Vomiting without nausea Instructions: Eating a Diet Low in Saturated Fat, Trans Fat, and Cholesterol, Hiatal Hernia, DI for Gastroesophageal Reflux Disease (GERD), GERD Diet Activity Restrictions/Additional Instructions: *You have been diagnosed with vomiting and concern for GERD/peptic ulcer disease. You have a known hiatal hernia, you have symptoms consistent with GERD, UA history of gallstones on some of your prior CTs although you did not have pain over your gallbladder today. Please start taking omeprazole daily in the morning before any food or water on an empty stomach for at least 2 weeks until you are able to follow-up with either gastroenterology or your primary doctor. Please continue taking every day, you may use Reglan or Zofran as needed for vomiting. Please go slow with additions of foods back into your diet, start with a bland diet, low-fat, no caffeine, acidic foods, spicy foods, or other. Start with bananas, easy to digest foods and small portions frequently. Please try and stay hydrated by drinking small amounts frequently throughout the day. You may take Pepto-Bismol in addition to omeprazole if you are feeling heartburn. Please ask for referral for a endoscopy and colonoscopy. Please return to the emergency department for any blood in your emesis or your stool or for worsening if you are unable to keep anything down. This could be peptic ulcer disease or H pylori which would be diagnosed by endoscopy. *What to do: *Please continue to take your regular medications as directed. [x ] New medication prescriptions sent to your pharmacy: [ ] [ ] New medication written as a paper prescription [ ] No new medications given *Please follow up with your primary care provider in 2-3 days, call for an appointment. Let them know you were seen in the Emergency Department and that we asked that you be seen for follow-up. We will electronically transmit a record of today's note if your PCP is in our system *If you do not have a primary care provider please contact [phone] to establish care with one of the [facility] primary care providers. *Return to Emergency Department if you should have any new, worsening or concerning symptoms, such as [fever greater than 101F, chills, worsening pain, persistent vomiting or other bothersome symptoms] Prescriptions: New metoclopramide HCl [Reglan] 10 mg tablet 10 mg PO QACHS Qty: 14 0RF ondansetron 4 mg tablet,disintegrating 4 mg PO Q8H PRN (Reason: nausea and vomiting) Qty: 14 0RF omeprazole 20 mg capsule,delayed release(DR/EC) 20 mg PO DAILY Qty: 30 0RF No Action esterified estrogens [Menest] 0.625 MG tablet 0.625 mg PO QDAY Qty: 30 6RF estrogens-methyltestosterone [EEMT HS] 0.625-1.25 mg tablet 1 tab PO Q DAY Qty: 30 3RF amlodipine 10 mg tablet 10 mg PO DAILY 0RF aspirin 81 mg tablet,chewable 81 mg PO DAILY 0RF atorvastatin [Lipitor] 20 mg tablet 20 mg PO DAILY 0RF estradiol 1.25 gram/actuation gel in metered-dose pump 1.25 gram Transdermal DAILY Qty: 50 0RF Rx Instructions: Place 1 gel arm from wrist to shoulder daily sucralfate [Carafate] 100 mg/mL suspension 10 ml PO QACHS Qty: 1000 0RF Referrals: Gayatri Kamara MD [Primary Care Provider] - Robin Stanford MD [Physician] - 7-10 days (general surgeon for endoscopy if Asad wants her to have it completed here.) <Yovana Garcia DO - Last Filed: 09/23/21 07:28> Cosign ED Attending Shaina Attestation: I was immediately available in the department for consultation. Documentation has been reviewed. I agree with assessment and plan.
[2021-09-18] MEDS: PANTOPRAZOLE DR 20 MG TABLET PO (16:58)
[2021-09-18] MEDS: MAG HYDROX/ALUMINUM/SIMETH SUS 20 ML, LIDOCAINE VISCOUS 2% 15 ML PO (16:58)
[2021-09-18] MEDS: METOCLOPRAMIDE HCL 10 MG TABLET PO (17:06)
[2021-09-18] MEDS: ONDANSETRON 4 MG ODT SL (17:12)
[2021-09-18 17:52] VITALS: BP 122/74; PULSE 79; O2SAT 96
== END 2021-09-18 17:52 | disposition home or self-care (01) ==
PROVIDERS: Emergency Provider Nurse Practitioner Critical Care Medicine; PCP Student in an Organized Health Care Education/Training Program
DX: K21.00 Gastro-esophageal reflux disease with esophagitis, without bleeding (principal); R11.10 Vomiting, unspecified
CPT/HCPCS: 99283

== ENCOUNTER 2021-09-19 17:47 | Emergency (ER) | payer MEDICARE, SELFPAY ==
[2021-09-19] VITALS (8 sets, daily range): BP systolic 131–176; BP diastolic 62–86; PULSE 67–99; RESP 18; TEMP 36.9; O2SAT 96–98; BMI 28.5
--- NOTE | 2021-09-19 19:14 | ED_ITS ---
HPI - Nausea/Vomiting/Diarrhea General Chief complaint: Nausea/Vomiting/Diarrhea Stated complaint: Hiatal hernia, can't keep anything down Time Seen by Provider: 09/19/21 18:38 Source: patient Mode of arrival: Ambulatory History of Present Illness HPI Narrative: 76-year-old female who states that she has a hiatal hernia although she has n ever had an upper endoscopy who is here for evaluation of several days of epigastric abdominal discomfort and some chest discomfort and shortness of breath and nausea. She has had issues like this in the past. She states she has been ?treated ?for these which include taking a reflux medications and things have improved afterwards however she has been unable to keep his medications down. Family at bedside states that she has not had any real food intake for several days now. No fevers. She does report some dark colored stools. No blood in vomit. Related Data Home Medications Medication Instructions Recorded Confirmed amlodipine 10 mg tablet 10 mg PO DAILY 02/10/18 02/10/18 aspirin 81 mg chewable tablet 81 mg PO DAILY 02/10/18 02/10/18 atorvastatin 20 mg tablet (Lipitor) 20 mg PO DAILY 02/10/18 02/10/18 Previous Rx's Medication Instructions Recorded esterified estrogens 0.625 mg 0.625 mg PO QDAY #30 tab 11/04/16 tablet (Menest) esterified 1 tab PO Q DAY #30 tab 01/21/18 estrogens-methyltestosterone 0.625 mg-1.25 mg tablet (EEMT HS) estradiol 1.25 gram/actuation 1.25 gram TRANSDERMAL DAILY #50 02/10/18 (0.06%) transdermal gel pump gram metoclopramide HCl 10 mg tablet 10 mg PO QACHS #14 tab 09/18/21 (Reglan) omeprazole 20 mg capsule,delayed 20 mg PO DAILY #30 cap 09/18/21 release ondansetron 4 mg disintegrating 4 mg PO Q8H PRN #14 tab 09/18/21 tablet sucralfate 100 mg/mL oral 10 ml PO QACHS #1000 ml 09/19/21 suspension (Carafate) Allergies Allergy/AdvReac Type Severity Reaction Status Date / Time lisinopril [LISINOPRIL] Allergy Severe ANGIOEDEMA Verified 04/25/20 19:49 AND COUGH tizanidine [TIZANIDINE] Allergy Severe FACIAL Verified 04/25/20 19:49 SWELLING warfarin [From Coumadin] Allergy Unknown Verified 09/18/21 15:02 Review of Systems Constitutional Constitutional: Denies fever(s) Cardiovascular Cardiovascular: Reports system reviewed and no additional complaints, except as documented Respiratory Respiratory: Reports system reviewed and no additional complaints, except as documented Gastrointestinal Gastrointestinal: Reports system reviewed and no additional complaints, except as documented Genitourinary Genitourinary: Reports system reviewed and no additional complaints, except as documented Integumentary/Breasts Skin/Breast: Reports system reviewed and no additional complaints, except as documented Hematologic/Lymphatic Hematologic/Lymphatic: Reports system reviewed and no additional complaints, except as documented Patient History Medical History Hypertension Surgical History Status post hysterectomy Social History Smoking Status: Current every day smoker Smoking Status: Current every day smoker tobacco type: cigarettes alcohol intake frequency: a few times a week Substance Use Type: does not use Exam Initial Vital Signs Initial Vital Signs: Vital Signs Temperature 98.5 F 09/19/21 18:24 Pulse Rate 99 H 09/19/21 18:24 Respiratory Rate 18 09/19/21 18:24 Blood Pressure 176/82 H 09/19/21 18:24 Pulse Oximetry 97 09/19/21 18:24 Const General: cooperative, healthy appearing and comfortable HENMT Mouth: moist mucous membranes Resp Effort & Inspection: normal respiratory effort Auscultation: clear to auscultation bilaterally Cardio Rate: regular rate Rhythm: regular rhythm GI Inspection: normal to inspection and non-distended Skin General: no rashes or lesions noted Neuro General: patient alert, patient awake and moves all extremities Extrem General: normal to inspection and capillary refill normal Psych Appearance: grossly normal and well kempt Course Orders Ordered: ED Orders 09/19/21 18:29 EKG-12 Lead Stat 09/19/21 18:46 Complete Blood Count AUTO DIFF Stat Comprehensive Metabolic Panel Stat Lipase Stat 09/19/21 19:15 XR chest 1V Stat Discontinued Medications Pantoprazole Sodium (Pantoprazole 40 Mg Vial) 40 mg IV NOW ONE Stop: 09/19/21 19:16 Last Admin: 09/19/21 20:00 Dose: 40 mg Documented by: MITESH Vital Signs Vital signs: Vital Signs - 8 hr 09/19/21 18:24 09/19/21 18:52 09/19/21 18:53 Temperature 98.5 F Pulse Rate 99 H 85 84 Respiratory Rate 18 Blood Pressure 176/82 H 131/62 Pulse Oximetry 97 98 96 09/19/21 19:00 09/19/21 19:30 09/19/21 20:00 Temperature Pulse Rate 67 81 71 Respiratory Rate Blood Pressure 144/79 H 157/72 H Pulse Oximetry 98 97 97 09/19/21 20:01 09/19/21 20:30 Temperature Pulse Rate 69 74 Respiratory Rate Blood Pressure 145/86 H 167/69 H Pulse Oximetry 97 96 MDM - Nausea/Vomiting/Diarrhea Lab Data Attestation: I reviewed the patient's lab results. Result diagrams: 09/19/21 18:46 09/19/21 18:46 Labs: Lab Results 09/19/21 09/19/21 09/19/21 Range/Units 15:46 18:46 18:46 WBC 6.1 (4.5-11.0) X10^3/uL RBC 4.35 (4.0-5.2) X10^6/uL Hgb 14.4 (12.0-16.0) g/dL Hct 41.9 (36-46) % MCV 96.4 (80-100) fL MCH 33.0 (26-34) PG MCHC 34.3 (30-36) % RDW 12.9 (11.6-14.8) % Plt Count 231 (150-400) X10^3/uL Neut % (Auto) 78.6 H (50-75) % Lymph % (Auto) 13.6 L (25-40) % [place] % (Auto) 6.3 (3-14) % Eos % (Auto) 0.9 L (2-4) % Baso % (Auto) 0.6 (0-2) % Neut # (Auto) 4800 (0411-3619) /uL Lymph # (Auto) 800 L (8235-9164) /uL [place] # (Auto) 400 (0-900) /uL Eos # (Auto) 100 (0-450) /uL Baso # (Auto) 0 (0-100) /uL Sodium 149 H (137-145) mmol/L Potassium 4.7 (3.4-5.1) mmol/L Chloride 104 (98-107) mmol/L Carbon Dioxide 30 (22-32) mmol/L BUN 46 H (7-17) mg/dL Creatinine 1.56 H (0.52-1.04) mg/dL Estimated GFR 34 L (>60) mL/min BUN/Creatinine Ratio 29.5 H (6-22) Glucose 82 (80-110) mg/dL Calcium 10.6 H (8.4-10.2) mg/dL Total Bilirubin 1.3 (0.2-1.3) mg/dL AST 28 (14-36) IU/L ALT 13 (<35) IU/L Alkaline Phosphatase 65 (38-126) U/L Total Creatine Kinase 46 (30-135) U/L CK-MB (CK-2) TNP CK-MB (CK-2) Rel Index TNP Troponin I < 0.012 (0.01-0.034) ng/mL Total Protein 8.2 (6.3-8.2) g/dL Albumin 4.7 (3.5-5.0) g/dL Globulin 3.5 (1.7-4.1) g/dL Albumin/Globulin Ratio 1.3 (1.0-2.8) Lipase 284 (23-300) U/L Imaging Data Chest x-ray: Radiologist's Impression: [address] [address] XRay Report Signed Patient: Sammie Guevara MR#: [id number] : 1945 Acct:[id number] Age/Sex: 76 / F Date of Service: 09/19/21 Loc: ED Accession Number: [id number] ?? Procedure: XR chest 1V Ordering Provider: Shailesh Solis D.O. PROCEDURE:? XR CHEST 1V ? INDICATIONS:? chest pain ? TECHNIQUE:? One view of the chest was acquired.? ? COMPARISON:? None. ? FINDINGS:? ? Surgical changes and devices:? Suture line projects over the left upper abdomen. ? Lungs and pleura:? Lungs are clear.? No pleural effusions or pneumothorax.? ? Mediastinum:? Mediastinal contours appear normal.? Heart size is normal.? ? Bones and chest wall:? No suspicious bony lesions.? Overlying soft tissues appear unremarkable.? ? IMPRESSION:? No acute cardiopulmonary disease process. ? ? Dictated by: Eloina Friend MD, PhD on 09/19/2021 at 19:47 ? ? Approved by: Eloina Friend MD, PhD on 09/19/2021 at 19:48 ECG Data Interpretation: Sinus rhythm Ventricular rate of 64 Normal QRS Normal QTC No ST T wave changes MDM Narrative Medical decision making narrative: Given her presentation today I would not be surprised if she has a gastric ulcer/reflux disease. Her presenting symptoms are consistent with this. Her chest x-ray and her EKG and troponin are negative. I have low suspicion for ACS. I did inform the patient and family at bedside that an upper endoscopy is most likely going to be needed to make a definitive diagnosis and she was given contact information that she can call for this. They have a follow-up appoint with her primary doctor next week in order to get a referral for this as well. No indication for further radiologic studies based on her exam today. H&H is unremarkable. Does not have leukocytosis. Plan will be is start the patient on Carafate. She is well hydrated. Not malnourished. No indication for admission to the hospital. There were given return precautions and follow-up instructio ns. They expressed understanding and agreement. Discharge Plan Departure Patient Disposition: Home Clinical Impression: Abdominal pain, Gastroesophageal reflux disease Instructions: DI for Gastroesophageal Reflux Disease (GERD) Activity Restrictions/Additional Instructions: I recommend that you contact [facility] the number provided below for a follow-up. Continue to take your omeprazole on a daily basis. I do recommend that you take the Carafate as directed. Keep your scheduled appointment with your primary provider. Prescriptions: New sucralfate [Carafate] 100 mg/mL suspension 10 ml PO QACHS Qty: 1000 0RF No Action esterified estrogens [Menest] 0.625 MG tablet 0.625 mg PO QDAY Qty: 30 6RF estrogens-methyltestosterone [EEMT HS] 0.625-1.25 mg tablet 1 tab PO Q DAY Qty: 30 3RF amlodipine 10 mg tablet 10 mg PO DAILY 0RF aspirin 81 mg tablet,chewable 81 mg PO DAILY 0RF atorvastatin [Lipitor] 20 mg tablet 20 mg PO DAILY 0RF estradiol 1.25 gram/actuation gel in metered-dose pump 1.25 gram Transdermal DAILY Qty: 50 0RF Rx Instructions: Place 1 gel arm from wrist to shoulder daily metoclopramide HCl [Reglan] 10 mg tablet 10 mg PO QACHS Qty: 14 0RF ondansetron 4 mg tablet,disintegrating 4 mg PO Q8H PRN (Reason: nausea and vomiting) Qty: 14 0RF omeprazole 20 mg capsule,delayed release(DR/EC) 20 mg PO DAILY Qty: 30 0RF Referrals: Jeffrey Oleary MD [Physician] - Gayatri Kamara MD [Primary Care Provider] -
--- NOTE | 2021-09-19 19:15 | DI.RAD.S_ITS ---
PROCEDURE: XR CHEST 1V INDICATIONS: chest pain TECHNIQUE: One view of the chest was acquired. COMPARISON: None. FINDINGS: Surgical changes and devices: Suture line projects over the left upper abdomen. Lungs and pleura: Lungs are clear. No pleural effusions or pneumothorax. Mediastinum: Mediastinal contours appear normal. Heart size is normal. Bones and chest wall: No suspicious bony lesions. Overlying soft tissues appear unremarkable. IMPRESSION: No acute cardiopulmonary disease process. Dictated by: Eloina Friend MD, PhD on 09/19/2021 at 19:47 Approved by: Eloina Friend MD, PhD on 09/19/2021 at 19:48
[2021-09-19 19:31] LABS: Creatine Kinase 46 U/L (30-135)
[2021-09-19 19:44] LABS: Troponin I < 0.012 ng/mL (0.01-0.034)
[2021-09-19 19:59] LABS: Add Manual Diff / Slide Review NO; Basophils Absolute Auto 0 /uL (0-100); Basophils Percent Auto 0.6 % (0-2); Eosinophils Absolute Auto 100 /uL (0-450); Eosinophils Percent Auto 0.9 % (2-4); Hematocrit 41.9 % (36-46); Hemoglobin 14.4 g/dL (12.0-16.0); Lymphocytes Absolute Auto 800 /uL (1100-4500); Lymphocytes Percent Auto 13.6 % (25-40); Mean Corpuscular HGB Conc 34.3 % (30-36); Mean Corpuscular Volume 96.4 fL (80-100); Monocytes Absolute Auto 400 /uL (0-900); Monocytes Percent Auto 6.3 % (3-14); Neutrophils Absolute Auto 4800 /uL (1500-7000); Neutrophils Percent Auto 78.6 % (50-75); Platelet Count 231 X10^3/uL (150-400); Red Blood Cell Count 4.35 X10^6/uL (4.0-5.2); Red Cell Distribution Width 12.9 % (11.6-14.8); White Blood Cell Count 6.1 X10^3/uL (4.5-11.0)
[2021-09-19] MEDS: PANTOPRAZOLE 40 MG VIAL IV (20:00)
[2021-09-19 20:14] LABS: Alanine Aminotransferase 13 IU/L (<35); Albumin 4.7 g/dL (3.5-5.0); Albumin Globulin Ratio 1.3 (1.0-2.8); Alkaline Phosphatase 65 U/L (38-126); Aspartate Aminotransferase 28 IU/L (14-36); BUN Creatinine Ratio 29.5 (6-22); Bilirubin Total 1.3 mg/dL (0.2-1.3); Blood Urea Nitrogen 46 mg/dL (7-17); Calcium 10.6 mg/dL (8.4-10.2); Carbon Dioxide 30 mmol/L (22-32); Chloride 104 mmol/L (98-107); Estimated Glomerular Filt Rate 34 mL/min (>60); Globulin 3.5 g/dL (1.7-4.1); Glucose 82 mg/dL (80-110); HEMOLYSIS < 15 (0-50); Lipase 284 U/L (23-300); Potassium 4.7 mmol/L (3.4-5.1); Sodium 149 mmol/L (137-145); Total Protein 8.2 g/dL (6.3-8.2)
== END 2021-09-19 21:00 | disposition home or self-care (01) ==
PROVIDERS: Emergency Provider Emergency Medicine; PCP Student in an Organized Health Care Education/Training Program
DX: K21.9 Gastro-esophageal reflux disease without esophagitis (principal); R06.02 Shortness of breath; R10.13 Epigastric pain; R07.9 Chest pain, unspecified
CPT/HCPCS: 36415; 71045; 80053; 82550; 83690; 84484; 85025; 93005; 93010; 96374; 99284; C9113

== ENCOUNTER → 2022-11-16 17:00 | Outpatient (CLI) | payer MEDICARE, SELFPAY ==
--- NOTE | 2022-11-16 17:04 | DI.RAD.S_ITS ---
PROCEDURE: XR KNEE RT 1TO2V INDICATIONS: RECURRENT PAIN OF RIGHT KNEE TECHNIQUE: 2 views of the knee were acquired. COMPARISON: None. FINDINGS: Bones: No acute fractures or dislocations. No suspicious bony lesions. Tricompartmental marginal osteophyte formation is seen. Small suprapatellar enthesophyte. Soft tissues: Small joint effusion. Chondrocalcinosis. IMPRESSION: 1. No acute osseous abnormality. If the symptoms persist, consider cross sectional imaging such as MRI or CT for further assessment. 2. Mild tricompartmental osteoarthrosis. 3. Chondrocalcinosis. Differential diagnosis includes but is not limited to CPPD, hyperparathyroidism, and hemochromatosis. Approved by: Mauricio Luis M.D. on 11/16/2022 at 20:50
== END ==
PROVIDERS: PCP Family Medicine; Referring Provider Family Medicine; Visit Provider Family Medicine
DX: M17.11 Unilateral primary osteoarthritis, right knee (principal); M11.20 Other chondrocalcinosis, unspecified site
CPT/HCPCS: 73560

== ENCOUNTER 2022-12-15 17:59 | Emergency (ER) | payer MEDICARE, SELFPAY ==
[2022-12-15 18:21] VITALS: BP 136/71; PULSE 81; RESP 19; TEMP 36.2; O2SAT 96; BMI 22.6
[2022-12-15 19:45] LABS: Ictotest Urine Negative (Negative)
[2022-12-15 19:50] LABS: Bacteria Urine Moderate (10-30); Calcium Oxalate Crystals Urine Moderate; Culture Indicated Urine Specimen Cultured; RBC Urine 1-5/HPF (0-5/HPF); Squamous Epithelial Cell Urine 10-30 /HPF (0-5/HPF); WBC Urine 10-30/HPF (0-5/HPF)
[2022-12-15 20:43] LABS: Add Manual Diff / Slide Review NO; Basophils Absolute Auto 100 /uL (0-100); Basophils Percent Auto 0.6 % (0-2); Eosinophils Absolute Auto 100 /uL (0-450); Eosinophils Percent Auto 1.1 % (2-4); Hematocrit 41.4 % (36-46); Lymphocytes Absolute Auto 1200 /uL (1100-4500); Lymphocytes Percent Auto 15.5 % (25-40); Mean Corpuscular HGB Conc 33.9 % (30-36); Mean Corpuscular Hemoglobin 33.6 PG (26-34); Mean Corpuscular Volume 99.2 fL (80-100); Monocytes Absolute Auto 500 /uL (0-900); Monocytes Percent Auto 6.3 % (3-14); Neutrophils Absolute Auto 6000 /uL (1500-7000); Neutrophils Percent Auto 76.5 % (50-75); Platelet Count 156 X10^3/uL (150-400); Red Blood Cell Count 4.17 X10^6/uL (4.0-5.2); Red Cell Distribution Width 14.8 % (11.6-14.8); White Blood Cell Count 7.9 X10^3/uL (4.5-11.0)
[2022-12-15 20:51] LABS: Alanine Aminotransferase 19 IU/L (<35); Albumin 4.6 g/dL (3.5-5.0); Albumin Globulin Ratio 1.2 (1.0-2.8); Alkaline Phosphatase 68 U/L (38-126); Aspartate Aminotransferase 37 IU/L (14-36); BUN Creatinine Ratio 18.6 (6-22); Bilirubin Total 1.1 mg/dL (0.2-1.3); Blood Urea Nitrogen 34 mg/dL (7-17); Calcium 10.5 mg/dL (8.4-10.2); Carbon Dioxide 34 mmol/L (22-32); Chloride 107 mmol/L (98-107); Estimated Glomerular Filt Rate 28 mL/min (>60); Glucose 91 mg/dL (80-110); Lipase 119 U/L (23-300); Sodium 148 mmol/L (137-145); Total Protein 8.6 g/dL (6.3-8.2)
[2022-12-15 20:52] LABS: HEMOLYSIS 54 (0-50)
== END 2022-12-15 22:00 | disposition left against medical advice (07) ==
PROVIDERS: Emergency Provider Emergency Medicine; PCP Family Medicine
DX: R10.9 Unspecified abdominal pain (principal)
CPT/HCPCS: 36415; 80053; 81003; 81015; 83690; 85025; 87086; 99283

== ENCOUNTER 2022-12-16 10:23 | Observation (INO) | payer MEDICARE, SELFPAY ==
[2022-12-16] VITALS (23 sets, daily range): BP systolic 121–169; BP diastolic 59–78; PULSE 64–80; RESP 14–23; TEMP 36.8–37; O2SAT 95–99; BMI 28.3
--- NOTE | 2022-12-16 11:31 | ED_ITS ---
HPI - Nausea/Vomiting/Diarrhea General Chief complaint: Abdominal Pain Stated complaint: T-4 can't keep food down/HX hiatial hernia Time Seen by Provider: 12/16/22 11:11 Source: patient and family Mode of arrival: Ambulatory History of Present Illness HPI Narrative: Patient with history of dementia and hiatal hernia and gastric stapling, complains of intractable nausea and vomiting since this past Wednesday, 4 days ago. Denies abdominal pain. Patient has been taking sucralfate as well as Zofran ODT that was prescribed to her when she was seen here in September of 2022. Patient did not follow up with provided general surgery Dr. Oleary for endoscopy. Patient denies any sick contacts. Has had decrease in urination. But no dysuria or urgency. Patient was here yesterday but left without being seen due to high volume. Patient has felt lightheaded due to decreased oral intake. Denies denies any chest pain palpitations. No syncope. No black or bloody stools. Related Data Home Medications Medication Instructions Recorded Confirmed atorvastatin 20 mg tablet (Lipitor) 20 mg PO DAILY 02/10/18 12/16/22 donepezil 10 mg tablet 20 mg PO ONCE PM 12/16/22 12/16/22 memantine 5 mg tablet 5 mg PO BID 12/16/22 12/16/22 Previous Rx's Medication Instructions Recorded metoclopramide HCl 10 mg tablet 10 mg PO QACHS nausea, vomiting 09/18/21 (Reglan) #14 tabs omeprazole 20 mg capsule,delayed 20 mg PO DAILY #30 caps 09/18/21 release ondansetron 4 mg disintegrating 4 mg PO Q8H PRN nausea and 09/18/21 tablet vomiting #14 tabs sucralfate 100 mg/mL oral 10 ml PO QACHS #1,000 mL 09/19/21 suspension (Carafate) Allergies Allergy/AdvReac Type Severity Reaction Status Date / Time lisinopril [LISINOPRIL] Allergy Severe ANGIOEDEMA Verified 12/15/22 18:21 AND COUGH tizanidine [TIZANIDINE] Allergy Severe FACIAL Verified 12/15/22 18:21 SWELLING warfarin [From Coumadin] Allergy Unknown Verified 12/15/22 18:21 Review of Systems Review of Systems Narrative: GENERAL: negative chills, positive fatigue, malaise, negative fever, sweats. HEENT: negative sinus pain, ear pain, sore throat RESPIRATORY: negative dyspnea, cough CARDIOVASCULAR: negative chest pain, palpitations GASTROINTESTINAL: Positive nausea, vomiting, negative abdominal pain : negative dysuria, frequency, hematuria MUSCULOSKELETAL: negative muscle or bony pain SKIN: negative rash, skin lesions NEUROLOGIC: negative weakness, numbness ROS Unobtainable: All systems reviewed & are unremarkable except as noted in HPI and below Patient History Medical History Hypertension Surgical History Status post hysterectomy Social History household members: family Smoking Status: Former smoker Smoking Status: Former smoker tobacco type: cigarettes alcohol intake frequency: a few times a week Substance Use Type: does not use Exam Narrative Exam Narrative: GENERAL: in no distress, not toxic not dyspneic HEAD: Normocephalic. EYES: Pupils equal round ENT: Mucous membranes moist. NECK: Trachea midline. CARDIOVASCULAR: Regular rate and rhythm RESPIRATORY: Clear to auscultation. Breath sounds equal bilaterally. No wheezes, rales, or rhonchi. GASTROINTESTINAL: Abdomen soft, there is mild epigastric tenderness. No peritoneal signs. Bowel sounds are present. No pain out of proportion to exam EXTREMITIES: No gross deformities. BACK: No flank tenderness. NEURO: AOx3. SKIN: Warm and dry PSYCH: Not anxious, is cooperative Initial Vital Signs Initial Vital Signs: Vital Signs Temperature 98.2 F 12/16/22 10:35 Pulse Rate 80 12/16/22 10:35 Respiratory Rate 16 12/16/22 10:35 Blood Pressure 151/70 H 12/16/22 10:35 Pulse Oximetry 96 12/16/22 10:35 Oxygen Delivery Method Room Air 12/16/22 10:35 Course Orders Ordered: Discontinued Medications Bisacodyl (Bisacodyl 10 Mg Supp) 10 mg AK DAILY PRN PRN Reason: Constipation Enoxaparin Sodium (Enoxaparin 30 Mg/0.3 Ml Syringe) 30 mg SUBCUT DAILY [facility] Last Admin: 12/18/22 09:01 Dose: Not Given Documented By: Admin: 12/17/22 08:12 Dose: 30 mg Documented By: TAYLOR Sodium Chloride (Normal Saline 0.9%) 1,000 mls @ 1,000 mls/hr IV BOLUS ONE Stop: 12/16/22 12:28 Last Infusion: 12/16/22 13:35 Dose: 0 mls/hr Documented By: Admin: 12/16/22 12:09 Dose: 1,000 mls/hr Documented By: Sodium Chloride (Normal Saline 0.9%) 1,000 mls @ 1,000 mls/hr IV BOLUS ONE Stop: 12/16/22 15:59 Last Infusion: 12/16/22 17:30 Dose: 0 mls/hr Documented By: Admin: 12/16/22 16:16 Dose: 1,000 mls/hr Documented By: Lactated Ringer's (Lactated Ringers) 1,000 mls @ 125 mls/hr IV CONT JESSICA Last Admin: 12/17/22 23:24 Dose: 125 mls/hr Documented By: Infusion: 12/17/22 23:24 Dose: 0 mls/hr Documented By: Infusion: 12/17/22 17:35 Dose: 0 mls/hr Documented By: Admin: 12/17/22 15:24 Dose: 125 mls/hr Documented By: Infusion: 12/17/22 15:24 Dose: 125 mls/hr Documented By: Infusion: 12/17/22 13:53 Dose: 125 mls/hr Documented By: Infusion: 12/17/22 10:04 Dose: 0 mls/hr Documented By: Admin: 12/17/22 04:43 Dose: 125 mls/hr Documented By: Infusion: 12/17/22 04:42 Dose: 0 mls/hr Documented By: Admin: 12/16/22 20:14 Dose: 125 mls/hr Documented By: CARLOS Metoclopramide HCl (Metoclopramide 10 Mg/2 Ml Inj) 5 mg IV Q6HR PRN PRN Reason: Nausea And Vomiting Naloxone HCl (Naloxone 0.4 Mg/Ml Vial) 0.2 mg IV Q2MIN PRN PRN Reason: Opiate Reversal Naloxone HCl (Naloxone 0.4 Mg/Ml Vial) 0.2 mg IV Q2MIN PRN PRN Reason: Opiate Reversal Ondansetron HCl (Ondansetron 4 Mg/2 Ml Inj) 4 mg IV NOW ONE Stop: 12/16/22 11:31 Last Admin: 12/16/22 12:09 Dose: 4 mg Documented By: Ondansetron HCl (Ondansetron 4 Mg/2 Ml Inj) 4 mg IV Q8HR PRN PRN Reason: Nausea And Vomiting Pantoprazole Sodium (Pantoprazole 40 Mg Vial) 40 mg IV NOW ONE Stop: 12/16/22 11:41 Last Admin: 12/16/22 12:09 Dose: 40 mg Documented By: Pantoprazole Sodium (Pantoprazole 40 Mg Vial) 40 mg IV DAILY JESSICA Last Admin: 12/18/22 09:01 Dose: 40 mg Documented By: Admin: 12/17/22 08:09 Dose: 40 mg Documented By: TAYLOR Vital Signs Vital signs: Vital Signs - 8 hr 12/16/22 10:35 12/16/22 11:48 12/16/22 11:56 Temperature 98.2 F Pulse Rate 80 76 67 Respiratory Rate 16 Blood Pressure 151/70 H 121/59 L Pulse Oximetry 96 96 Oxygen Delivery Method Room Air 12/16/22 11:57 12/16/22 11:57 12/16/22 12:00 Temperature Pulse Rate 64 64 Respiratory Rate 18 16 Blood Pressure 140/67 Pulse Oximetry 97 98 Oxygen Delivery Method 12/16/22 12:30 12/16/22 13:00 12/16/22 13:30 Temperature Pulse Rate 69 68 76 Respiratory Rate 21 17 21 Blood Pressure Pulse Oximetry 95 98 98 Oxygen Delivery Method 12/16/22 14:00 12/16/22 14:30 12/16/22 15:00 Temperature Pulse Rate 69 79 70 Respiratory Rate 14 21 15 Blood Pressure Pulse Oximetry 97 96 96 Oxygen Delivery Method 12/16/22 15:24 12/16/22 15:24 12/16/22 15:30 Temperature Pulse Rate 77 Respiratory Rate 18 Blood Pressure 150/71 H 161/74 H Pulse Oximetry 99 Oxygen Delivery Method 12/16/22 15:30 12/16/22 16:00 12/16/22 16:00 Temperature Pulse Rate 71 75 Respiratory Rate 23 19 Blood Pressure 143/67 H Pulse Oximetry 98 96 Oxygen Delivery Method 12/16/22 16:30 12/16/22 16:30 12/16/22 17:00 Temperature Pulse Rate 77 74 Respiratory Rate 18 19 Blood Pressure 155/70 H Pulse Oximetry 97 96 Oxygen Delivery Method MDM - Nausea/Vomiting/Diarrhea Lab Data 12/16/22 14:25 12/18/22 04:34 Labs: Lab Results 12/16/22 12/16/22 Range/Units 14:25 14:25 WBC 4.7 (4.5-11.0) X10^3/uL RBC 3.63 L (4.0-5.2) X10^6/uL Hgb 11.9 L (12.0-16.0) g/dL Hct 35.2 L (36-46) % MCV 97.0 (80-100) fL MCH 32.9 (26-34) PG MCHC 34.0 (30-36) % RDW 14.4 (11.6-14.8) % Plt Count 151 (150-400) X10^3/uL Neut % (Auto) 76.4 H (50-75) % Lymph % (Auto) 15.8 L (25-40) % [place] % (Auto) 6.4 (3-14) % Eos % (Auto) 0.5 L (2-4) % Baso % (Auto) 0.9 (0-2) % Neut # (Auto) 3600 (7211-5069) /uL Lymph # (Auto) 700 L (4661-0443) /uL [place] # (Auto) 300 (0-900) /uL Eos # (Auto) 0 (0-450) /uL Baso # (Auto) 0 (0-100) /uL Sodium 147 H (137-145) mmol/L Potassium 4.3 (3.4-5.1) mmol/L Chloride 111 H (98-107) mmol/L Carbon Dioxide 29 (22-32) mmol/L BUN 37 H (7-17) mg/dL Creatinine 1.64 H (0.52-1.04) mg/dL Estimated GFR 32 L (>60) mL/min BUN/Creatinine Ratio 22.6 H (6-22) Glucose 82 (80-110) mg/dL Calcium 9.3 (8.4-10.2) mg/dL Total Bilirubin 1.0 (0.2-1.3) mg/dL AST 25 (14-36) IU/L ALT 16 (<35) IU/L Alkaline Phosphatase 61 (38-126) U/L Total Protein 7.0 (6.3-8.2) g/dL Albumin 3.9 (3.5-5.0) g/dL Globulin 3.1 (1.7-4.1) g/dL Albumin/Globulin Ratio 1.3 (1.0-2.8) Lipase 121 (23-300) U/L Imaging Data CT scan - abdomen/pelvis: Radiologist's Impression: [address] [id number] [address] Scan Report Signed Patient: Sammie Guevara MR#: [id number] : 1945 Acct:[id number] Age/Sex: 77 / F Date of Service: 12/16/22 Loc: ED Accession Number: [id number] ?? Procedure: CT abdomen pelvis wo con Ordering Provider: Dwight Zavaleta MD PROCEDURE:? CT ABDOMEN PELVIS WO CON ? INDICATIONS:? Nausea and vomiting ? TECHNIQUE:? Noncontrast 5 mm thick sections acquired from the diaphragms to the symphysis.? 5 mm coronal and sagittal reformats were then performed.? For radiation dose reduction, the following was used:? automated exposure control, adjustment of mA and/or kV according to patient size.? ? COMPARISON:? [facility], CT, CT ABDOMEN PELVIS W CON, 02/04/2021, 15:58. ? FINDINGS:? Image quality:? Excellent.? ? ABDOMEN:? Lung bases:? Lung bases are clear.? Heart size is normal.? ? Solid organs:? Liver is normal in size.? Gallbladder is again noted to contain multiple large gallstones.? No gallbladder wall thickening or fluid around the gallbladder. .? Pancreas is normal in contours.? Spleen is normal in size.? No adrenal nodules.? Kidneys are normal in size, without hydronephrosis or nephrolithiasis.? ? Peritoneum and bowel:? Remote gastric region surgery.? Unenhanced bowel loops d emonstrate normal wall thickness and caliber.? No free fluid or air.? ? Nodes and vessels:? No retroperitoneal or mesenteric adenopathy by size criteria.? Aorta and inferior vena cava are normal in caliber.? ? Miscellaneous:? No ventral hernias.? ? ? PELVIS:? Genitourinary:? Bladder wall thickness is normal.? ? Miscellaneous:? No inguinal hernias or adenopathy.? Uterus is surgically absent.? Question previous retroperitoneal lymph node resection.? ? Bones:? No suspicious bony lesions.? No vertebral body compression fractures.? ? IMPRESSION:? ? 1. No acute abdominal process identified. ? 2. Cholelithiasis. ? 3. Remote hysterectomy. ? ? Dictated by: Severino Viramontes M.D. on 12/16/2022 at 12:23 ? ? Approved by: Severino Viramontes M.D. on 12/16/2022 at 12:26 ? [facility] Narrative Medical decision making narrative: Patient with history of dementia and hiatal hernia and gastric stapling, complains of intractable nausea and vomiting since this past Wednesday, 4 days ago. Denies abdominal pain. Patient has been taking sucralfate as well as Zofran ODT that was prescribed to her when she was seen here in September of 2022. Patient did not follow up with provided general surgery Dr. Oleary for endoscopy. Patient denies any sick contacts. Has had decrease in urination. But no dysuria or urgency. Patient was here yesterday but left without being seen due to high volume. Patient has felt lightheaded due to decreased oral int rayna. Denies denies any chest pain palpitations. No syncope. No black or bloody stools. After history and exam CT abdomen pelvis normal saline Zofran, after IV fluids will repeat labs to compare to yesterday/last night [facility] CC: Nausea and vomiting Complicating co-morbidities: History of gastric stapling surgery for weight loss Data collected from: Patient and daughter Medical records reviewed: Patient seen here September 19, 2021 for the same complaint. Differential considered: Includes but not limited to gastritis GERD bowel obstruction Exam documented above, pertinent findings include: Mild epigastric tenderness Lab Test results independently reviewed as above. Pertinent findings: WBC 4.7 hemoglobin 11.9 hematocrit 35.2 sodium 147 potassium 4.3 bicarb 29 BUN 37 creatinine 1.64 GFR 32 Imaging studies independently reviewed: CT abdomen pelvis no acute finding Consultations: 6:[address] Shah, on-call for primary care dr adorno, will admit patient. 6:[address] Stanford, general surgeon, he will follow in consult Treatments: Normal saline Zofran Protonix Re-evaluations: 5:54 p.m.. Re-evaluated patient. Numerous attempts for oral challenge through the afternoon unsuccessful. Patient continues to throw up any fluids. She is not nauseous. At this time we will likely admit patient for intractable vomiting Discussion: Appropriate for admission for intractable vomiting. Patient unable to take her home medications. Numerous attempts for p.o. challenge here unsuccessful. However laboratory studies are improving with IV hydration. Patient and family desire admission. Will need evaluation by general surgeon as well. Diagnosis: Intractable vomiting Discharge Plan Departure Patient Disposition: Admitted as Observation Clinical Impression: Intractable vomiting Admit Date/Time: 12/16/22 18:12 Admit Provider: Robinson Shah
--- NOTE | 2022-12-16 11:33 | DI.CT.S_ITS ---
PROCEDURE: CT ABDOMEN PELVIS WO CON INDICATIONS: Nausea and vomiting TECHNIQUE: Noncontrast 5 mm thick sections acquired from the diaphragms to the symphysis. 5 mm coronal and sagittal reformats were then performed. For radiation dose reduction, the following was used: automated exposure control, adjustment of mA and/or kV according to patient size. COMPARISON: [facility], CT, CT ABDOMEN PELVIS W CON, 02/04/2021, 15:58. FINDINGS: Image quality: Excellent. ABDOMEN: Lung bases: Lung bases are clear. Heart size is normal. Solid organs: Liver is normal in size. Gallbladder is again noted to contain multiple large gallstones. No gallbladder wall thickening or fluid around the gallbladder. . Pancreas is normal in contours. Spleen is normal in size. No adrenal nodules. Kidneys are normal in size, without hydronephrosis or nephrolithiasis. Peritoneum and bowel: Remote gastric region surgery. Unenhanced bowel loops demonstrate normal wall thickness and caliber. No free fluid or air. Nodes and vessels: No retroperitoneal or mesenteric adenopathy by size criteria. Aorta and inferior vena cava are normal in caliber. Miscellaneous: No ventral hernias. PELVIS: Genitourinary: Bladder wall thickness is normal. Miscellaneous: No inguinal hernias or adenopathy. Uterus is surgically absent. Question previous retroperitoneal lymph node resection. Bones: No suspicious bony lesions. No vertebral body compression fractures. IMPRESSION: 1. No acute abdominal process identified. 2. Cholelithiasis. 3. Remote hysterectomy. Dictated by: Severino Viramontes M.D. on 12/16/2022 at 12:23 Approved by: Severino Viramontes M.D. on 12/16/2022 at 12:26
[2022-12-16] MEDS: ONDANSETRON 4 MG/2 ML INJ IV (12:09)
[2022-12-16] MEDS: SODIUM CHLORIDE 0.9% 1,000 ML 1000 ML IV ×2 (12:09→16:16)
[2022-12-16] MEDS: PANTOPRAZOLE 40 MG VIAL IV (12:09)
[2022-12-16 14:30] LABS: Add Manual Diff / Slide Review NO; Basophils Absolute Auto 0 /uL (0-100); Basophils Percent Auto 0.9 % (0-2); Eosinophils Absolute Auto 0 /uL (0-450); Eosinophils Percent Auto 0.5 % (2-4); Hematocrit 35.2 % (36-46); Hemoglobin 11.9 g/dL (12.0-16.0); Lymphocytes Absolute Auto 700 /uL (1100-4500); Lymphocytes Percent Auto 15.8 % (25-40); Mean Corpuscular Hemoglobin 32.9 PG (26-34); Monocytes Absolute Auto 300 /uL (0-900); Monocytes Percent Auto 6.4 % (3-14); Neutrophils Absolute Auto 3600 /uL (1500-7000); Neutrophils Percent Auto 76.4 % (50-75); Platelet Count 151 X10^3/uL (150-400); Red Blood Cell Count 3.63 X10^6/uL (4.0-5.2); Red Cell Distribution Width 14.4 % (11.6-14.8); White Blood Cell Count 4.7 X10^3/uL (4.5-11.0)
[2022-12-16 14:42] LABS: Alanine Aminotransferase 16 IU/L (<35); Albumin 3.9 g/dL (3.5-5.0); Albumin Globulin Ratio 1.3 (1.0-2.8); Alkaline Phosphatase 61 U/L (38-126); Aspartate Aminotransferase 25 IU/L (14-36); BUN Creatinine Ratio 22.6 (6-22); Blood Urea Nitrogen 37 mg/dL (7-17); Calcium 9.3 mg/dL (8.4-10.2); Carbon Dioxide 29 mmol/L (22-32); Chloride 111 mmol/L (98-107); Estimated Glomerular Filt Rate 32 mL/min (>60); Globulin 3.1 g/dL (1.7-4.1); Glucose 82 mg/dL (80-110); HEMOLYSIS < 15 (0-50); Lipase 121 U/L (23-300); Potassium 4.3 mmol/L (3.4-5.1); Sodium 147 mmol/L (137-145)
--- NOTE | 2022-12-16 18:39 | PC.NURSE ---
Called report to KRAIG Thakkar. Pt A&Ox4 on transfer with daughter at bedside.
--- NOTE | 2022-12-16 18:59 | PC.ADMIT ---
[email or web address] Admission Note: Admitted from the ED via stretcher. Patient ambulated to bed. Daughter at bedside answered most admission questions. Awaiting orders. The patient,Sammie Guevara,77 y/o, was given written information regarding hospital policies, unit procedures and contact persons. Patient's smoking status: Former smoker. Vital Signs - 8 hr 12/16/22 11:48 12/16/22 11:56 12/16/22 11:57 Pulse Rate 76 67 64 Respiratory Rate 18 Blood Pressure 121/59 L Pulse Oximetry 96 97 12/16/22 11:57 12/16/22 12:00 12/16/22 12:30 Pulse Rate 64 69 Respiratory Rate 16 21 Blood Pressure 140/67 Pulse Oximetry 98 95 12/16/22 13:00 12/16/22 13:30 12/16/22 14:00 Pulse Rate 68 76 69 Respiratory Rate 17 21 14 Blood Pressure Pulse Oximetry 98 98 97 12/16/22 14:30 12/16/22 15:00 12/16/22 15:24 Pulse Rate 79 70 77 Respiratory Rate 21 15 18 Blood Pressure Pulse Oximetry 96 96 99 12/16/22 15:24 12/16/22 15:30 12/16/22 15:30 Pulse Rate 71 Respiratory Rate 23 Blood Pressure 150/71 H 161/74 H Pulse Oximetry 98 12/16/22 16:00 12/16/22 16:00 12/16/22 16:30 Pulse Rate 75 Respiratory Rate 19 Blood Pressure 143/67 H 155/70 H Pulse Oximetry 96 12/16/22 16:30 12/16/22 17:00 12/16/22 17:00 Pulse Rate 77 74 Respiratory Rate 18 19 Blood Pressure 151/75 H Pulse Oximetry 97 96 12/16/22 17:30 12/16/22 17:30 12/16/22 18:00 Pulse Rate 79 75 Respiratory Rate 19 20 Blood Pressure 159/75 H Pulse Oximetry 97 97 12/16/22 18:30 Pulse Rate 72 Respiratory Rate 16 Blood Pressure Pulse Oximetry 95
[2022-12-16] MEDS: LACTATED RINGERS 1,000 ML 125 ML IV (20:14)
[2022-12-16 21:17] LABS: MRSA (Nasal) PCR Not Detected (Not Detect)
[2022-12-17] VITALS (19 sets, daily range): BP systolic 115–178; BP diastolic 59–86; PULSE 52–76; RESP 15–22; TEMP 36.2–36.9; O2SAT 89–99; BMI 28.3
[2022-12-17] MEDS: LACTATED RINGERS 1,000 ML 125 ML IV ×3 (04:43→23:24)
--- NOTE | 2022-12-17 06:38 | PC.NURSE ---
pt was admitted just before shift change yesterday evening; she has dementia and is quite forgetful; she will take a sip of water, then spit it in the emesis bag without swallowing; denies actual nausea
[2022-12-17] MEDS: PANTOPRAZOLE 40 MG VIAL IV (08:09)
[2022-12-17] MEDS: ENOXAPARIN 30 MG/0.3 ML SYRINGE SUBCUT (08:12)
--- NOTE | 2022-12-17 13:21 | P.HP_ITS ---
History of Present Illness History of Present Illness Date Patient Seen: 12/17/22 Time Patient Seen: 13:21 Chief complaint: T-4 can't keep food down/HX hiatial hernia Narrative: Patient a 77-year-old with history of dementia hypertension and hyperlipidemia who presents with persistent vomiting. Patient has a history of gastric stapling many many years ago. Has done well for years apparently approximately a year ago she started having intermittent vomiting. Sometimes it is not vomiting just comes up. Sometimes when she overeats with her gastric stapling should this have food kind of come up. And that was happening about a year ago. Workup except for EGD was negative patient never did show up at the surgeon's office. There is no other significant change. Patient was given some Carafate after a couple of days got better and did well for 6 months she had another episode 6 months ago couple doses so Carafate and did better. But this started 4 or 5 days ago. With continued inability to take any p.o.. Daughter tried sucralfate and anti nausea medicine and none of this helped. She continued to have everything come back up about 10 minutes after she ate it. Does not say she has things get stuck and does not feel that way but just can not keep anything down. She is been unable to keep either fluids or solids down. And has had nothing really significant for 4 days. Patient has had no fevers no chills no nausea no vomiting no change in her bowel movements no blood in her stool no hematemesis she is had no headaches or other changes no other family members have been sick. Patient has tried a little bit of clear liquids and although that has been coming up since being in the hospital. [facility] Medical History Hypertension Surgical History Status post hysterectomy Social History household members: family Smoking Status: Former smoker Meds Home Medications and Allergies Home Medications Medication Instructions Recorded Confirmed Type atorvastatin 20 mg tablet (Lipitor) 20 mg PO DAILY 02/10/18 12/16/22 History metoclopramide HCl 10 mg tablet 10 mg PO QACHS nausea, vomiting 09/18/21 12/16/22 Rx (Reglan) #14 tabs omeprazole 20 mg capsule,delayed 20 mg PO DAILY #30 caps 09/18/21 12/16/22 Rx release ondansetron 4 mg disintegrating 4 mg PO Q8H PRN nausea and 09/18/21 12/16/22 Rx tablet vomiting #14 tabs sucralfate 100 mg/mL oral 10 ml PO QACHS #1,000 mL 09/19/21 12/16/22 Rx suspension (Carafate) donepezil 10 mg tablet 20 mg PO ONCE PM 12/16/22 12/16/22 History memantine 5 mg tablet 5 mg PO BID 12/16/22 12/16/22 History Allergies Allergy/AdvReac Type Severity Reaction Status Date / Time lisinopril [LISINOPRIL] Allergy Severe ANGIOEDEMA Verified 12/15/22 18:21 AND COUGH tizanidine [TIZANIDINE] Allergy Severe FACIAL Verified 12/15/22 18:21 SWELLING warfarin [From Coumadin] Allergy Unknown Verified 12/15/22 18:21 Review of Systems Review of Systems Narrative: All negative except above Exam Vital Signs (past 8 hours): - 12/17/22 08:14 Temperature 98.3 F Pulse Rate 66 Respiratory Rate 18 Blood Pressure 175/72 H Pulse Oximetry 99 Oxygen Flow Rate 0 Oxygen Delivery Method Room Air Oxygen Flow Rate 0 Narrative Exam Narrative: Alert interactive female in no acute distress Mucous membranes appear moist neck supple without adenopathy lungs are clear heart is regular rate and rhythm without murmur abdomen is soft positive bowel sounds slight epigastric tenderness no rebound guarding no masses extremities are normal. Neurologic exam she is happily confused with no other changes. Objective Labs 12/16/22 14:25 12/16/22 14:25 Labs: Laboratory Results - last 24 hr 12/16/22 12/16/22 12/16/22 14:25 14:25 18:53 WBC 4.7 RBC 3.63 L Hgb 11.9 L Hct 35.2 L MCV 97.0 MCH 32.9 MCHC 34.0 RDW 14.4 Plt Count 151 Neut % (Auto) 76.4 H Lymph % (Auto) 15.8 L [place] % (Auto) 6.4 Eos % (Auto) 0.5 L Baso % (Auto) 0.9 Neut # (Auto) 3600 Lymph # (Auto) 700 L [place] # (Auto) 300 Eos # (Auto) 0 Baso # (Auto) 0 Sodium 147 H Potassium 4.3 Chloride 111 H Carbon Dioxide 29 BUN 37 H Creatinine 1.64 H Estimated GFR 32 L BUN/Creatinine Ratio 22.6 H Glucose 82 Calcium 9.3 Total Bilirubin 1.0 AST 25 ALT 16 Alkaline Phosphatase 61 Total Protein 7.0 Albumin 3.9 Globulin 3.1 Albumin/Globulin Ratio 1.3 Lipase 121 Nasal Screen MRSA (PCR) Not detected Assessment & Plan Assessment & Plan narrative: Intractable vomiting. Not sure of cause CT scan is normal lab work all looks normal no evidence of infection or obstruction. I think this probably has some to do either esophageal or upper GI. Seems unlikely to be gastritis but I guess it is possible could be a version of gastroparesis with Reglan would be good but at this point it is unclear. Clearly unable to be at home and needs admission to the hospital. For hydration given other issues that are going on. Discussed with Dr. Oleary. He will see her. Will continue IV ppi. In off chance that this is related to that. Will see what EGD shows Whether we need an upper GI or EGD which probably EGD and then maybe need some type of swallowing study depending on that finding. She understands what daughter understands questions answered. Renal failure acute on chronic. Patient with some improvement with hydration by do not think we are yet back to baseline. Clearly will need further hydration and I think this is all prerenal. No evidence of infection. Will continue fluids until taking p.o. and hopefully will be able to stop soon but probably will need another 24 hours. Dementia. Pretty significant. But happily demented. Will hold her medicines until after GI evaluation and then restart. Hyperlipidemia. Stable. No other change. Hypertension. Mildly elevated today. But will see how it does. Has not been on medicine chronically may need to start. Will see. Code status. Patient is somewhat waddling but does not want to be resuscitated. But does want full care otherwise. GI prophylaxis on PPI. Disposition. Will probably be here for a few days until establish diagnosis and treatment plan. Clearly unable to be at home if can not hydrate herself enough. And that clearly is true at this point. Will continue to follow recheck in a.m. appreciate surgeons help
--- NOTE | 2022-12-17 13:55 | CM.DANOTE ---
DCP Assessment Note: Patient is a 77yo female with a history of dementia here for recent vomiting. PCP Dr. Halima Humphrey [facility] and self pay. HOTEL ASSISTANT MANAGER reviewed EMR. Per nursing staff, patient lives with daughter. Patient is mobile and pleasant. HOTEL ASSISTANT MANAGER entered room and introduced self and role. Patient was laying in bed and was chatting, appeared to be oriented to self and place, but frequently mis remembered parts of her history and had to be corrected by daughter. Patient was able to report she was born in [place] and events surrounding her childhood, but was a poor historian for recent events. Daughter, Evelia ([phone]) was the primary source of information throughout interaction. daughter reports Dr. Morgan claims patient will be here for another day or so. Daughter is primary primary care pediatrician for patient at home. Daughter provides transportation for patient. Patient does not use DME at home. Patient walks to the local park daily. HOTEL ASSISTANT MANAGER provided daughter with [employer] booklet for future caregiving information. Patient and daughter open to if needed. Dr. Morgan's H&P reports Will probably be here for a few days until establish diagnosis and treatment plan. Clearly unable to be at home if can not hydrate herself enough and Dr. Oleary has been consulted. Plan: patient will d/c home with daughter in POV when medically stable. No additional needs identified at this time but CM team will continue to follow closely should needs arise. ALEXANDRIA Orellana Discharge Planning/Care Management CM Discharge Assessment Start: 12/17/22 13:52 Freq: Status: Active Protocol: Document 12/17/22 13:52 (Rec: 12/17/22 13:55 [id number]) Discharge Planning Assessment Assigned Tight Barrel Inspector ALEXANDRIA Thomason DPOA/Assigned Designee Name Evelia Guevara (daughter) Contact Information [phone] Advance Directives? Yes Advance Directives on File No History Provided By Patient,Family Member,Medical Record Prior Living Arrangements House Household Members family Comment patient lives with daughter Type of transporation used prior to Relies on Others admit Independent with ADL's Yes Is patient alert and oriented? No: history of dementia Needs Assistance With Meal Prep,Managing Medications ,Home Chores / Shopping Comment Daughter primary caregiver Barriers to Discharge No Discharge Plan Home Transportation Arrangement daughter in POV Whiteboard Updated in Patient Room with Yes name and ext. # of Tight Barrel Inspector Review Status In Process Next Review Type Continued Stay Review
--- NOTE | 2022-12-17 16:18 | P.CONS_ITS ---
History of Present Illness Consult details Date Patient Seen: 12/17/22 Time Patient Seen: 16:18 Chief complaint: T-4 can't keep food down/HX hiatial hernia Narrative: Sabi is a 77-year-old woman with dementia presented to the hospital for several days of spitting up. She denies abdominal pain or nausea but everything she eats or drinks comes back up according to her daughter. Similar episode occurred about 6 months ago and she came to the emergency department and was told he had a hiatal hernia. The symptoms resolved after some Carafate. She had ?stapling of the stomach? performed in the . She also had some sort of a bowel obstruction requiring an operation approximately 20 years ago. Meds Home Medications and Allergies Home Medications Medication Instructions Recorded Confirmed Type atorvastatin 20 mg tablet (Lipitor) 20 mg PO DAILY 02/10/18 12/16/22 History metoclopramide HCl 10 mg tablet 10 mg PO QACHS nausea, vomiting 09/18/21 12/16/22 Rx (Reglan) #14 tabs omeprazole 20 mg capsule,delayed 20 mg PO DAILY #30 caps 09/18/21 12/16/22 Rx release ondansetron 4 mg disintegrating 4 mg PO Q8H PRN nausea and 09/18/21 12/16/22 Rx tablet vomiting #14 tabs sucralfate 100 mg/mL oral 10 ml PO QACHS #1,000 mL 09/19/21 12/16/22 Rx suspension (Carafate) donepezil 10 mg tablet 20 mg PO ONCE PM 12/16/22 12/16/22 History memantine 5 mg tablet 5 mg PO BID 12/16/22 12/16/22 History Allergies Allergy/AdvReac Type Severity Reaction Status Date / Time lisinopril [LISINOPRIL] Allergy Severe ANGIOEDEMA Verified 12/15/22 18:21 AND COUGH tizanidine [TIZANIDINE] Allergy Severe FACIAL Verified 12/15/22 18:21 SWELLING warfarin [From Coumadin] Allergy Unknown Verified 12/15/22 18:21 Exam Vital Signs (past 8 hours): - 12/17/22 15:12 Temperature 97.5 F L Pulse Rate 60 Respiratory Rate 16 Blood Pressure 148/86 H Oxygen Delivery Method Room Air Oxygen Delivery Method Room Air Oxygen Flow Rate 0 Const General: No acute distress Objective Labs 12/16/22 14:25 08/02/23 14:25 Labs: Laboratory Results - last 24 hr 12/16/22 18:53 Nasal Screen MRSA (PCR) Not detected [facility] Medical History Hypertension Surgical History Status post hysterectomy Social History household members: family Tobacco & Substance Use Smoking Status: Former smoker Assessment & Plan Assessment and plan (1) Dysphagia: Qualifiers: Dysphagia type: esophageal phase Qualified Code(s): R13.19 - Other dysphagia Status: Acute Assessment & Plan narrative: We will proceed with esophagogastroduodenoscopy to evaluate the esophagus and stomach. If no obvious cause is found she should have an esophagram tomorrow.
--- NOTE | 2022-12-17 16:54 | PM.OP.EGD ---
Operative Date/Time/Diagnoses Date of procedure: 12/17/22 Time of procedure: 16:54 Pre-op diagnosis: Dysphagia Post-op diagnosis: same Procedure & Clinicians Study performed: Esophagogastroduodenoscopy Same procedure as scheduled: Yes Surgeon: Jeffrey Oleary Procedure Notes Procedure in detail: Surgeon: Jeffrey Oleary MD Anesthesia: Jose R Fields timeout was performed. A bite blocked was placed. The patient was positioned in the left lateral decubitus position. Anesthesia was administered. The endoscope was inserted through the bite block and passed through the esophagus and into some sort of the gastric pouch which was likely related to her remote history of weight loss surgery. There was significant semi solid contents within this pouch and a more solid component consistent with a bezoar. Endoscope was able to be advanced out of the pouch and into the main portion of the stomach which appeared grossly normal. The pylorus was slightly stenotic but was able to be intubated and the duodenum was normal. The scope was retroflexed in the stomach and no obvious abnormality was noted. The scope was then withdrawn back into the pouch. The semi solid contents were able to be suctioned away. The solid component was spherical and roughly 2-3 cm in diameter. It was able to be broken down using a snare into small fragments. Some of these fragments were able to be suctioned and others were able to be pushed into the main portion of the stomach. The remainder of the esophagus was normal. The scope was withdrawn. The patient was awakened and brought to recovery. Sedation time: 23 minutes Findings: Abnormal gastric pouch with a bezoar Post-procedure Disposition: PACU
[2022-12-18 04:59] LABS: BUN Creatinine Ratio 23.4 (6-22); Blood Urea Nitrogen 26 mg/dL (7-17); Calcium 8.9 mg/dL (8.4-10.2); Carbon Dioxide 29 mmol/L (22-32); Chloride 106 mmol/L (98-107); Estimated Glomerular Filt Rate 52 mL/min (>60); Glucose 78 mg/dL (80-110); HEMOLYSIS < 15 (0-50); Potassium 3.9 mmol/L (3.4-5.1); Sodium 139 mmol/L (137-145)
[2022-12-18 05:00] VITALS: BP 133/64; PULSE 46; RESP 14; TEMP 36.6; O2SAT 95
--- NOTE | 2022-12-18 08:32 | PM.PN.1 ---
Subjective Subjective Date Patient Seen: 12/18/22 Time Patient Seen: 08:32 Interval history: met with pt and reviewed chart pt didnt sleep last n ight but otherwise feels good no cp, sob normal bm yesterday urinating normally had egd yesterday. reviewed report, gastric pouch found and bezoar. Dr. sommer ordered barium swallow otherwise ros negative Exam Vital Signs (past 8 hours): - 12/18/22 05:00 Temperature 97.9 F Pulse Rate 46 L Respiratory Rate 14 Blood Pressure 133/64 Pulse Oximetry 95 Oxygen Flow Rate 0 Oxygen Delivery Method Room Air Oxygen Flow Rate 0 Narrative Exam Narrative: af, vss HEENT wnl neck wnl chest cta bilaterally cor rrr without murmur abd: bs present, no hsm, non tender, no guarding ext: no edema neuro: forgetful but non focal Objective Labs 12/16/22 14:25 12/18/22 04:34 Labs: Laboratory Results - last 24 hr 12/18/22 04:34 Sodium 139 Potassium 3.9 Chloride 106 Carbon Dioxide 29 BUN 26 H Creatinine 1.11 H Estimated GFR 52 L BUN/Creatinine Ratio 23.4 H Glucose 78 L Calcium 8.9 PFSH Medical History Hypertension Surgical History Status post hysterectomy Social History household members: family Smoking Status: Former smoker Assessment & Plan Assessment & Plan narrative: Assessment & Plan narrative: Intractable vomiting.? Not sure of cause CT scan is normal lab work all looks normal no evidence of infection or obstruction.? reviewed egd. gastric pouch with bezoar likely source. pt feeling good today but no po intake. barium swallow ordered by dr. sommer. will await results and consider home pending that and oral challenge. Renal failure acute on chronic.? markedly improved with iv hydration. will continue to monitor Dementia.? stable over night. pleasant. will restart meds once tolerating po ? Hyperlipidemia.? Stable.? No other change. Hypertension.? Mildly elevated today.? But will see how it does.? Has not been on medicine chronically may need to start.? Code status.? Patient is somewhat waffling but does not want to be resuscitated.? But does want full care otherwise.? GI prophylaxis on PPI. Disposition.? pending barium swallow and if able to tolerate po will d/c home
[2022-12-18 09:00] VITALS: BP 166/75; PULSE 46; RESP 18; TEMP 36.6; O2SAT 96
[2022-12-18] MEDS: PANTOPRAZOLE 40 MG VIAL IV (09:01)
--- NOTE | 2022-12-18 12:00 | DI.RAD.S_ITS ---
PROCEDURE: ESOPHOGRAM W/AIR INDICATIONS: history of hiatal hernia COMPARISON: None. FINDINGS: Function: There is normal esophageal peristalsis. Small sliding hiatal hernia is seen with moderate gastroesophageal reflux. Contrast is seen reflux to mid esophageal lumen. There is normal transit of a calibrated barium tablet through the esophagus into the stomach. Morphology: Air-contrast images demonstrate normal mucosal morphology. Single contrast views show no esophageal strictures, extrinsic mass effects, or diverticula. Limited images of the stomach demonstrate normal appearance. IMPRESSION: Small sliding hiatal hernia with moderate gastroesophageal reflux. Dictated by: Gabriel Orozco M.D. on 12/18/2022 at 10:47 Approved by: Gabriel Orozco M.D. on 12/18/2022 at 10:48
[2022-12-18 13:00] VITALS: BP 148/87; PULSE 75; RESP 17; TEMP 37.2; O2SAT 99
--- NOTE | 2022-12-18 13:20 | CM.DPNOTE ---
Discharge Planning Note: Patient underwent Barium swallow today. Patient lives with daughter who assists as needed. Plan: When medically cleared, discharge home to care of daughter. Khalida Pepe RN/DCP
--- NOTE | 2022-12-18 13:30 | PC.NURSE ---
Verbal order from Dr. Lacey received for discharge, stating they could not enter discharge orders until at least 1700. Patient restless and anxious to leave.
--- NOTE | 2022-12-24 18:55 | P.DS_ITS ---
History of Present Illness History of Present Illness Chief complaint: T-4 can't keep food down/HX hiatial hernia Discharge Providers Provider Date of admission: 12/16/22 18:12 Discharge Date: 12/18/22 Primary care physician: Sunil Varghese MD Consults: 12/17/22 13:50 Consult to Physician Routine Comment: Consulting Provider: Jeffrey Oleary Reason for consultation: persistent vomiting Discharge provider: Natalya Lacey MD Summary Hospital Course Discharge Diagnosis: Intractable vomiting, improved Gastric pouch found on EGD by Dr. Oleary and bezoar found this was broken down and patient's symptoms resolved she was tolerating p.o. and was discharged home Hospital Course: Admitted for intractable vomiting. Underwent EGD and found bezoar in the gastric pouch and this was broken up and patient was able to tolerate p.o. and was discharged home in stable condition. Follow-up with Dr. Hernandez and Dr. Oleary Greater than 40 minutes was spent with patient throughout the course of day discussing with physician, nursing, meeting with patient reviewing chart formulating a plan Status at Discharge Cognitive/behavioral status at discharge: oriented and at baseline, confused Functional status at discharge: independent ambulation Overall status at discharge: patient is progressing back to baseline Time Spent with Patient Time spent: Greater than 30 minutes Exam Vital Signs (past 8 hours): Oxygen Delivery Method Room Air Oxygen Flow Rate 0 Narrative Exam Narrative: Afebrile vital signs are stable Very pleasant but confused Chest: Clear to auscultation Cor: Regular rate and rhythm Abdomen benign, positive bowel sounds, soft, nontender, nondistended Extremities no edema Neurologic exam nonfocal other than some difficulty remembering what we are discussing Objective Labs 12/16/22 14:25 12/18/22 04:34 [facility] Medical History Hypertension Surgical History Status post hysterectomy Social History household members: family Smoking Status: Former smoker Discharge Assessment & Plan Assessment and Plan Assessment: Intractable vomiting Gastric pouch with bezoar, resolved Plan of Treatment: Discharge home in stable condition. Follow up with Dr. Singh in his outpatient. Continue same medication. Follow up with PCP, and Dr. Oleary Discharge Plan Discharge Plan Patient Disposition: Home Provider Discharge Comment: Consume a low fat liquid diet. Nursing Discharge Comment: Per Dr. Trujillo, continue all home medications. Follow up with PCP and Dr. Oleary in two weeks. Discharge orders & Medications Prescriptions: No Action atorvastatin [Lipitor] 20 mg tablet 20 mg PO DAILY metoclopramide HCl [Reglan] 10 mg tablet 10 mg PO QACHS Qty: 14 0RF ondansetron 4 mg tablet,disintegrating 4 mg PO Q8H PRN (Reason: nausea and vomiting) Qty: 14 0RF omeprazole 20 mg capsule,delayed release(DR/EC) 20 mg PO DAILY Qty: 30 0RF sucralfate [Carafate] 100 mg/mL suspension 10 ml PO QACHS Qty: 1000 0RF donepezil 10 mg tablet 20 mg PO ONCE PM memantine 5 mg tablet 5 mg PO BID Follow up/Referrals: Jeffrey Oleary MD [Physician] - (Call today to schedule a follow up in the clinic with Dr. Oleary to discuss your hiatal hernia and your esophageal function. There may be additional testing to pursue to evaluate the function of your esophagus and in addition if a proton pump inhibitor or other antacid is not working to relieve your symptoms with the hiatal hernia there is a surgical procedure called a Gina fundoplication that you may want more information about in the future.) Sunil Varghese MD [Primary Care Provider] - Diet/Activity/Treatments Diet: Diet as Tolerated and Regular Skin/Wound/Dressing Care Report to your healthcare provider any signs of infection, such as:: increased pain Visit Report/Discharge Packet Instructions: DI for Hiatal Hernia Stand Alone Forms: Patient Portal/API, Stroke Signs & Symptoms Discharge Data Primary Care Provider: Sunil Varghese Attending Provider: Sunil Varghese Admit Date/Time: 12/16/22 18:12 Discharges patient from system. Discharge Date/Time: 12/18/22 13:40
== END 2022-12-18 13:40 | disposition home or self-care (01) ==
LOC: ED 18:02 → AC 18:13 → ICU 18:33
PROVIDERS: Family Medicine; Surgery; Admitting Provider Family Medicine; Emergency Provider Emergency Medicine; PCP Family Medicine; Referring Provider Emergency Medicine; Visit Provider Family Medicine
PROC: 0DJ08ZZ Inspection of Upper Intestinal Tract, Via Natural or Artificial Opening Endoscopic (ICD-10-PCS; CPT 43235; principal; 2022-12-17 15:15)
DX: T18.2XXA Foreign body in stomach, initial encounter (principal); E86.0 Dehydration; I12.9 Hypertensive chronic kidney disease with stage 1 through stage 4 chronic kidney disease, or unspecified chronic kidney disease; N17.9 Acute kidney failure, unspecified; N18.9 Chronic kidney disease, unspecified; E78.5 Hyperlipidemia, unspecified; F03.90 Unspecified dementia, unspecified severity, without behavioral disturbance, psychotic disturbance, mood disturbance, and anxiety; Z98.84 Bariatric surgery status
CPT/HCPCS: 43247; 36415; 74176; 74220; 80048; 80053; 83690; 85025; 87797; 96361; 96374; 96375; 96376; 99231; 99283; 99284; G0378; C9113; J1650; J2405; J2704

== ENCOUNTER → 2023-01-25 09:51 | Outpatient (CLI) | payer MEDICARE, SELFPAY ==
[2022-12-16 18:23] VITALS: BMI 28.3
--- NOTE | 2023-01-25 09:52 | DI.RAD.S_ITS ---
PROCEDURE: FL BARIUM SWALLOW INDICATIONS: Difficulty swallowing COMPARISON: None. FINDINGS: Function: There is normal esophageal peristalsis. Mild gastroesophageal reflux is noted with contrast reflux to distal esophageal lumen. There is normal transit of a calibrated barium tablet through the esophagus into the stomach. Morphology: Air-contrast images demonstrate normal mucosal morphology. Small sliding hiatal hernia is seen. There is no esophageal strictures, extrinsic mass effects, or diverticula. Limited images of the stomach demonstrate normal appearance. IMPRESSION: 1. Small sliding hiatal hernia with mild gastroesophageal reflux. 2. Otherwise unremarkable barium swallow study. Dictated by: Gabriel Orozco M.D. on 01/25/2023 at 13:07 Approved by: Gabriel Orozco M.D. on 01/25/2023 at 13:08
== END ==
PROVIDERS: PCP Family Medicine; Referring Provider Surgery; Visit Provider Surgery
DX: R13.10 Dysphagia, unspecified (principal); K44.9 Diaphragmatic hernia without obstruction or gangrene; K21.9 Gastro-esophageal reflux disease without esophagitis
CPT/HCPCS: 74220

== ENCOUNTER 2023-02-28 21:36 | Emergency (ER) | payer MEDICARE, SELFPAY ==
[2022-12-16 18:23] VITALS: BMI 28.3
[2023-02-28] VITALS (7 sets, daily range): BP systolic 121–151; BP diastolic 59–70; PULSE 61–77; RESP 12–18; TEMP 36.7; O2SAT 93–98; BMI 29.0
--- NOTE | 2023-02-28 21:49 | DI.RAD.S_ITS ---
PROCEDURE: XR ABDOMEN 1V INDICATIONS: Abdominal pain, constipation. TECHNIQUE: One view of the abdomen acquired. COMPARISON: [facility], CT, CT ABDOMEN PELVIS WO CON, 12/16/2022, 11:58. [facility], CR, XR ABDOMEN 1V, 02/04/2021, 15:10. FINDINGS: Surgical dorothy upper abdomen, surgical clips project over the lower abdomen and pelvis. A few dilated loops of small bowel project over the mid abdomen. Gas and stool are present in the colon. IMPRESSION: Few dilated loops of small bowel are present. This is a nonspecific finding. Gas and stool are present within the colon. Correlation for ileus or mechanical bowel obstruction may be helpful. Nonspecific enteritis also possible. Dictated by: Mauricio Delgado M.D. on 02/28/2023 at 22:21 Approved by: Mauricio Delgado M.D. on 02/28/2023 at 22:23
[2023-02-28 21:57] LABS: Add Manual Diff / Slide Review NO; Basophils Absolute Auto 100 /uL (0-100); Basophils Percent Auto 1.1 % (0-2); Eosinophils Absolute Auto 100 /uL (0-450); Eosinophils Percent Auto 1.5 % (2-4); Hematocrit 43.2 % (36-46); Hemoglobin 14.6 g/dL (12.0-16.0); Lymphocytes Absolute Auto 1300 /uL (1100-4500); Lymphocytes Percent Auto 15.9 % (25-40); Mean Corpuscular HGB Conc 33.7 % (30-36); Mean Corpuscular Hemoglobin 32.5 PG (26-34); Mean Corpuscular Volume 96.5 fL (80-100); Monocytes Absolute Auto 500 /uL (0-900); Monocytes Percent Auto 6.4 % (3-14); Neutrophils Absolute Auto 6300 /uL (1500-7000); Neutrophils Percent Auto 75.1 % (50-75); Platelet Count 237 X10^3/uL (150-400); Red Blood Cell Count 4.48 X10^6/uL (4.0-5.2); Red Cell Distribution Width 13.2 % (11.6-14.8); White Blood Cell Count 8.4 X10^3/uL (4.5-11.0)
--- NOTE | 2023-02-28 22:06 | ED.GENADULT ---
HPI - General Adult General Chief complaint: Abdominal Pain Stated complaint: abd pain x4 hours Time Seen by Provider: 02/28/23 21:43 Source: patient and family Mode of arrival: Ambulatory History of Present Illness HPI narrative: 77-year-old woman with a history of dementia, hypertension, hyperlipidemia recent hospitalization for recurrent episodes of vomiting with bezoar found on EGD once this was treated her vomiting was improved. She presents today complaining of 4 hours of abdominal pain mainly from the upper abdomen associated with a large amount of burping that is causing severe pain. Her daughter notes that she has had a history of bowel obstruction. Patient did have a bowel movement approximately 2 hours prior to evaluation in the emergency department that did not alleviate any of the upper abdominal pain or gas. She describes no fevers, palpitations, shortness of breath Related Data Home Medications Medication Instructions Recorded Confirmed atorvastatin 20 mg tablet (Lipitor) 20 mg PO DAILY 02/10/18 01/13/23 donepezil 10 mg tablet 20 mg PO ONCE PM 12/16/22 01/13/23 memantine 5 mg tablet 5 mg PO BID 12/16/22 01/13/23 Previous Rx's Medication Instructions Recorded metoclopramide HCl 10 mg tablet 10 mg PO QACHS nausea, vomiting 09/18/21 (Reglan) #14 tabs omeprazole 20 mg capsule,delayed 20 mg PO DAILY #30 caps 09/18/21 release ondansetron 4 mg disintegrating 4 mg PO Q8H PRN nausea and 09/18/21 tablet vomiting #14 tabs sucralfate 100 mg/mL oral 10 ml PO QACHS #1,000 mL 09/19/21 suspension (Carafate) Allergies Allergy/AdvReac Type Severity Reaction Status Date / Time lisinopril [LISINOPRIL] Allergy Severe ANGIOEDEMA Verified 01/13/23 09:57 AND COUGH tizanidine [TIZANIDINE] Allergy Severe FACIAL Verified 01/13/23 09:57 SWELLING warfarin [From Coumadin] Allergy Unknown Verified 01/13/23 09:57 Review of Systems Review of Systems Narrative: Pertinent positive and negative findings as per HPI Patient History Medical History (Updated 02/28/23 @ 23:52 by Jailyn Brewer MD) Dementia Hypertension Surgical History (Updated 02/28/23 @ 23:37 by Jailyn Brewer MD) History of gastric stapling Status post hysterectomy Social History household members: family Smoking Status: Current some day smoker Smoking Status: Current some day smoker tobacco type: cigarettes alcohol intake frequency: a few times a week Substance Use Type: does not use Exam Initial Vital Signs Initial Vital Signs: Vital Signs Temperature 98.0 F 02/28/23 21:38 Pulse Rate 77 02/28/23 21:38 Respiratory Rate 16 02/28/23 21:38 Blood Pressure 151/70 H 02/28/23 21:38 Pulse Oximetry 98 02/28/23 21:38 Oxygen Delivery Method Room Air 02/28/23 21:38 General: Healthy appearing, in no acute distress. Able to participate with history but details are supplemented by her daughter. Well-nourished well-developed HEENT: Moist mucous membranes, normal sclera with reactive pupils, Respiratory: Lungs are clear to auscultation, no wheezing no rales no rhonchi. Full and symmetrical air movement Cardiac: Regular rate and rhythm no murmurs no bruits Abdomen: Soft, mild tenderness with hyperactive bowel tones in the epigastrium, no rebound or guarding. No flank pain, Skin: Warm and dry, no rashes Neurologic: Grossly neurologically intact with no obvious asymmetries or abnormalities Extremities: No trauma, well perfused Psych: Cooperative, appropriate insight and affect Course Orders Ordered: ED Orders 02/28/23 21:45 Complete Blood Count AUTO DIFF Stat Comprehensive Metabolic Panel Stat Lipase Stat 02/28/23 21:49 XR abdomen 1V Stat 02/28/23 22:22 Ictotest Urine Stat 02/28/23 22:40 CT abdomen pelvis w con Stat Ondansetron HCl (Ondansetron 4 Mg Odt) 4 mg PO NOW PRN PRN Reason: Nausea And Vomiting Ondansetron HCl (Ondansetron 4 Mg/2 Ml Inj) 4 mg IV NOW PRN PRN Reason: Nausea And Vomiting Vital Signs Vital signs: Vital Signs - 8 hr 02/28/23 21:38 02/28/23 21:48 02/28/23 22:22 Temperature 98.0 F Pulse Rate 77 69 74 Respiratory Rate 16 Blood Pressure 151/70 H Pulse Oximetry 98 98 97 Oxygen Delivery Method Room Air 02/28/23 22:23 02/28/23 22:23 02/28/23 22:30 Temperature Pulse Rate 71 Respiratory Rate Blood Pressure 141/65 H 130/60 Pulse Oximetry 94 Oxygen Delivery Method 02/28/23 22:30 02/28/23 23:09 02/28/23 23:09 Temperature Pulse Rate 61 73 Respiratory Rate 18 12 Blood Pressure 121/61 Pulse Oximetry 96 93 Oxygen Delivery Method Room Air Medical Decision Making Lab Data 02/28/23 21:45 02/28/23 21:45 Labs: Lab Results 02/28/23 02/28/23 Range/Units 21:45 22:22 WBC 8.4 (4.5-11.0) X10^3/uL RBC 4.48 (4.0-5.2) X10^6/uL Hgb 14.6 (12.0-16.0) g/dL Hct 43.2 (36-46) % MCV 96.5 (80-100) fL MCH 32.5 (26-34) PG MCHC 33.7 (30-36) % RDW 13.2 (11.6-14.8) % Plt Count 237 (150-400) X10^3/uL Neut % (Auto) 75.1 H (50-75) % Lymph % (Auto) 15.9 L (25-40) % [place] % (Auto) 6.4 (3-14) % Eos % (Auto) 1.5 L (2-4) % Baso % (Auto) 1.1 (0-2) % Neut # (Auto) 6300 (9502-4029) /uL Lymph # (Auto) 1300 (5851-7889) /uL [place] # (Auto) 500 (0-900) /uL Eos # (Auto) 100 (0-450) /uL Baso # (Auto) 100 (0-100) /uL Sodium 142 (137-145) mmol/L Potassium 4.1 (3.4-5.1) mmol/L Chloride 101 (98-107) mmol/L Carbon Dioxide 30 (22-32) mmol/L BUN 21 H (7-17) mg/dL Creatinine 1.39 H (0.52-1.04) mg/dL Estimated GFR 39 L (>60) mL/min BUN/Creatinine Ratio 15.1 (6-22) Glucose 112 H (80-110) mg/dL Calcium 10.8 H (8.4-10.2) mg/dL Total Bilirubin 0.5 (0.2-1.3) mg/dL AST 31 (14-36) IU/L ALT 17 (<35) IU/L Alkaline Phosphatase 57 (38-126) U/L Total Protein 8.3 H (6.3-8.2) g/dL Albumin 4.5 (3.5-5.0) g/dL Globulin 3.8 (1.7-4.1) g/dL Albumin/Globulin Ratio 1.2 (1.0-2.8) Lipase 237 (23-300) U/L Ur Bilirubin Confirm Negative (Negative) Urine Dip Bedside Urine Glucose Negative Bedside Urine Bilirubin + 1 Bedside Urine Ketone - Negative Urine Specific [place] 1.03 Bedside Urine Occult Blood - Negative Bedside Urine pH 5.5 Bedside Urine Protein - Negative Bedside Urine Urobilinogen - Negative Bedside Urine Nitrite - Negative Bedside Urine Leukocytes - Negative Esterase Point of care testing: Urine Dip Bedside Urine Glucose Negative Bedside Urine Bilirubin + 1 Bedside Urine Ketone - Negative Urine Specific [place] 1.03 Bedside Urine Occult Blood - Negative Bedside Urine pH 5.5 Bedside Urine Protein - Negative Bedside Urine Urobilinogen - Negative Bedside Urine Nitrite - Negative Bedside Urine Leukocytes - Negative Esterase MDM Narrative Medical decision making narrative: CC: 4 hours of abdominal pain Complicating co-morbidities: Dementia, hypertension, hyperlipidemia, prior bowel obstruction, prior gastric stapling, recent hospital admission for recurrent vomiting a gastric pouch with bezoar development was found. Data collected from: patient, daughter Social determinants of health that may influence the patients condition: Medical records reviewed: Notes from hospitalization December of 2022 are reviewed Differential considered: Recurrent issue with gastric pouch or bezoar, small-bowel obstruction, viral syndrome, acute coronary syndrome, cholecystitis Exam documented above, pertinent findings include: Significant burping to the point of almost vomiting causing severe pain, hyperactive bowel tones in the epigastrium with mild tenderness in the epigastrium remainder of exam is benign Lab Test results independently reviewed as above. Pertinent findings: CBC is unremarkable Chemistries are relatively reassuring. She has mild acute kidney injury that appears fairly chronic, calcium slightly elevated at 10.8 again appears chronic Lipase is unremarkable Independently reviewed EKG sinus tachycardia at a rate of 125. Poor baseline, no obvious ischemic changes, slight left axis deviation Imaging studies independently reviewed: X-ray suggests few dilated loops of small bowel CT scan of the abdomen shows mildly dilated loops of small bowel without obvious transition point this is a nonspecific finding but could indicate earlier partial small bowel obstruction. Cholelithiasis without acute findings of cholecystitis again appreciated Treatments: Ondansetron is given Re-evaluations: Patient's symptoms related to the near vomiting/ severe eructation had almost entirely resolved upon arrival in the emergency department. Prior to arrival they were so severe that ?patient thought she was going to ?. She has had a few episodes of the severe burping and upper abdominal near vomiting type pain. Discussion: 77-year-old woman presents with severe upper abdominal pain lasting somewhere between 4 and 6 hours almost entirely resolved by the time she arrived in the emergency department. Labs are reassuring. Possibility of a developing small bowel obstruction based on x-ray and CT scan. On re-evaluation her pain has entirely resolved. Her abdomen is entirely soft and she feels like she is back to her baseline. Unclear if this was a brief partial bowel obstruction that resolved itself with the burping/near vomiting. Alternative explanation could be gallbladder colic. At this point she is pain-free, with shared decision-making between the patient the daughter and myself we opted to go ahead and have her go home with the clear discussion that if symptoms return she can return to the emergency department. Discharge Plan Departure Patient Disposition: Home Clinical Impression: Abdominal pain Qualifiers: Abdominal location: upper abdomen, unspecified Qualified Code(s): R10.10 - Upper abdominal pain, unspecified Instructions: DI for Abdominal Pain-Adult Activity Restrictions/Additional Instructions: Thank you for coming in today. With the severe pain that you are having prior to arrival in the emergency department full workup was done. Your blood work was very reassuring with no signs of severe kidney problems liver problems or infection. The abdominal x-ray and CT scan suggested the possibility of a developing bowel obstruction. I am wondering if a bowel obstruction was developing and then with all of that painful burping enough gas came out that your body was able to fix itself. With our discussion at time of discharge, you were completely pain-free. I am going to send you home. If you find that you are getting worse or have recurrent pain please feel free to return to the ER Prescriptions: No Action atorvastatin [Lipitor] 20 mg tablet 20 mg PO DAILY metoclopramide HCl [Reglan] 10 mg tablet 10 mg PO QACHS Qty: 14 0RF ondansetron 4 mg tablet,disintegrating 4 mg PO Q8H PRN (Reason: nausea and vomiting) Qty: 14 0RF omeprazole 20 mg capsule,delayed release(DR/EC) 20 mg PO DAILY Qty: 30 0RF sucralfate [Carafate] 100 mg/mL suspension 10 ml PO QACHS Qty: 1000 0RF donepezil 10 mg tablet 20 mg PO ONCE PM memantine 5 mg tablet 5 mg PO BID Referrals: Sunil Varghese MD [Primary Care Provider] - Stand Alone Forms: Patient Portal/API
--- NOTE | 2023-02-28 22:40 | DI.CT.S_ITS ---
PROCEDURE: CT ABDOMEN PELVIS W CON INDICATIONS: abdominal pain TECHNIQUE: After the administration of intravenous contrast, axial sections acquired from the lung bases to the pubic symphysis. Coronal and sagittal reformats were performed. For radiation dose reduction, the following was used: automated exposure control, adjustment of mA and/or kV according to patient size. COMPARISON: [facility], CT, CT ABDOMEN PELVIS WO CON, 12/16/2022, 11:58. [facility], CR, XR ABDOMEN 1V, 02/28/2023, 22:05. [facility], CT, CT ABDOMEN PELVIS W CON, 02/04/2021, 15:58. FINDINGS: Lung bases: No pleural effusion. ABDOMEN: Liver: Unremarkable. Gallbladder: Cholelithiasis as before. Biliary ducts: Unremarkable. Pancreas: Unremarkable. Spleen: Unremarkable. Adrenal Glands: Unremarkable. Kidneys and Ureters: No hydronephrosis. Stomach and Bowel: Postsurgical changes of the stomach redemonstrated. Left lower quadrant small bowel anastomosis. There are dilated loops of small bowel present within the abdomen, without a definite focal caliber transition identified. The terminal ileum is unremarkable in caliber, not dilated or completely collapsed. Gas and stool are present within the colon. Peritoneum: No abnormal intraperitoneal fluid. No free air. Abdominal Nodes: No retroperitoneal or mesenteric adenopathy by size criteria. Vessels: Aorta and inferior vena cava are normal in size. PELVIS: Pelvic Organs: The uterus is not visualized and is presumed surgically absent. Bladder: Unremarkable. Pelvic Nodes: No enlarged lymph nodes. Bones: Multilevel degenerative change of the visualized spine. IMPRESSION: 1. Mildly dilated loops of small bowel present, without a definite focal caliber transition point identified. Findings are nonspecific, a degree of ileus or early/partial small bowel obstruction are possible. Enteritis could also be considered. Clinical follow-up is recommended, repeat imaging can be obtained as clinically indicated. 2. Cholelithiasis as before. Dictated by: Mauricio Delgado M.D. on 02/28/2023 at 23:08 Approved by: Mauricio Delgado M.D. on 02/28/2023 at 23:20
[2023-02-28 22:45] LABS: Ictotest Urine Negative (Negative)
[2023-02-28 22:49] LABS: Alanine Aminotransferase 17 IU/L (<35); Albumin 4.5 g/dL (3.5-5.0); Albumin Globulin Ratio 1.2 (1.0-2.8); Alkaline Phosphatase 57 U/L (38-126); Aspartate Aminotransferase 31 IU/L (14-36); BUN Creatinine Ratio 15.1 (6-22); Bilirubin Total 0.5 mg/dL (0.2-1.3); Blood Urea Nitrogen 21 mg/dL (7-17); Calcium 10.8 mg/dL (8.4-10.2); Carbon Dioxide 30 mmol/L (22-32); Chloride 101 mmol/L (98-107); Estimated Glomerular Filt Rate 39 mL/min (>60); Globulin 3.8 g/dL (1.7-4.1); Glucose 112 mg/dL (80-110); HEMOLYSIS 30 (0-50); Lipase 237 U/L (23-300); Potassium 4.1 mmol/L (3.4-5.1); Sodium 142 mmol/L (137-145); Total Protein 8.3 g/dL (6.3-8.2)
[2023-03-01] VITALS: PULSE 62; RESP 22; O2SAT 96
== END 2023-03-01 00:03 | disposition home or self-care (01) ==
PROVIDERS: Emergency Provider Emergency Medicine; PCP Family Medicine
DX: R10.10 Upper abdominal pain, unspecified (principal)
CPT/HCPCS: 36415; 74018; 74177; 80053; 81003; 83690; 85025; 99284; Q9967

== ENCOUNTER 2023-11-24 10:55 | Observation (INO) | payer OTHER, SELFPAY ==
[2022-12-16 18:23] VITALS: BMI 28.3
[2023-11-24] VITALS (10 sets, daily range): BP systolic 126–163; BP diastolic 63–78; PULSE 78–99; RESP 12–23; TEMP 36.6–37.3; O2SAT 92–96; BMI 25.8
--- NOTE | 2023-11-24 11:07 | DI.CT.S_ITS ---
PROCEDURE: CT ABDOMEN PELVIS W CON INDICATIONS: RECTAL PAIN, ABD PAIN, 'COFFEE GROUND EMESIS THIS AM' TECHNIQUE: After the administration of intravenous contrast, axial sections acquired from the lung bases to the pubic symphysis. Coronal and sagittal reformats were performed. For radiation dose reduction, the following was used: automated exposure control, adjustment of mA and/or kV according to patient size. COMPARISON: [facility], CT, CT ABDOMEN PELVIS W CON, 02/28/2023, 22:52. FINDINGS: Image quality: Diagnostic. Lower Chest: Scattered small infiltrate/atelectasis in bilateral lung bases are seen. No pleural effusion or pneumothorax. Heart size is normal, no pericardial effusion. ABDOMEN: Liver: No solid mass. Gallbladder: Multiple calcified stones are seen in dependent portion of gallbladder lumen. No significant gallbladder wall thickening. Biliary ducts: No biliary dilation. Pancreas: No ductal dilation. Spleen: Size is within normal limits. Adrenal Glands: No adrenal nodules. Kidneys and Ureters: No hydronephrosis. No solid mass. No complex renal cystic lesion which requires follow up. Stomach and Bowel: There is prior gastric bypass surgery with postsurgical changes. Left lower quadrant small bowel anastomosis is again seen and unchanged. A few fluid distended small bowel loops are noted in left lower quadrant adjacent to the anastomosis without definite zone of transition. Questionable mild small bowel wall thickening in left lower quadrant adjacent to the anastomosis is seen. There is suggestion of diffuse rectal wall thickening without drainable abscess collection. No other area of abnormal colonic wall thickening is seen. Peritoneum: No abnormal intraperitoneal fluid. No free air. Ventral Wall: No significant ventral hernia. Abdominal Nodes: No retroperitoneal or mesenteric adenopathy by size criteria. Vessels: Aorta and inferior vena cava are normal in size. [id number] atherosclerotic calcifications in abdominal aorta is seen. PELVIS: Pelvic Organs: Unremarkable. Bladder: No bladder wall thickening, accounting for underdistention. Pelvic Nodes: No enlarged lymph nodes. Miscellaneous: No inguinal hernias are seen. Bones: No aggressive osseous abnormality. No acute vertebral body compression fracture. Grade 1 anterolisthesis of L4 on L5 is seen. IMPRESSION: 1. Postsurgical changes again seen in stomach and left lower quadrant unchanged from prior study. Nonspecific fluid distended small bowel loops adjacent to surgical anastomosis in left lower quadrant with questionable wall thickening. No discrete zone of transition is noted. Finding may represent mild ileus and enteritis, suggest clinical correlation. 2. Diffuse rectal wall thickening suggestive of proctitis. No discrete drainable abscess collection. No peritoneal free fluid or free air. 3. Cholelithiasis without CT evidence of acute cholecystitis. No biliary ductal dilatation. 4. Ill-defined patchy airspace opacities scattered in bilateral lower lung crespo suggestive of scattered bilateral lower lobe infiltrates. Dictated by: Gabriel Orozco M.D. on 11/24/2023 at 12:09 Approved by: Gabriel Orozco M.D. on 11/24/2023 at 12:15
--- NOTE | 2023-11-24 11:09 | ED.GIBLEED ---
HPI - GI Bleed General Chief complaint: GI Bleed Stated complaint: cough up something looking like coffee grounds Time Seen by Provider: 11/24/23 10:59 Source: patient Mode of arrival: Ambulatory History of Present Illness HPI Narrative: 78-year-old female with history of moderate to severe dementia, hypertension presents by private vehicle from home with her daughter for several complaints. Daughter at bedside provides history as patient is pleasantly confused and is unable to provide details as to her medical care or why she was in the emergency department. Daughter states that for the last week patient has had a decline in her mental status and has been very fatigued, not eating or drinking very much. She was intermittently complained of random abdominal pains as well as pain when defecating. This morning the patient threw up a small amount of oily, 'coffee-ground appearing' material. Family called the nursing advice line who recommended patient be evaluated in the emergency department. Daughter states that patient currently takes no regular prescription medications. She states that she gets occasional Tylenol for arthritis pains, but denies alcohol use, NSAID use, aspirin use, blood thinner use. Smokes 2-3 cigarettes per day. History of EGD with Dr. Oleary 12/17/2022 that showed gastric pouch formation and bezoar formation but no other acute abnormalities. Related Data Home Medications Medication Instructions Recorded Confirmed atorvastatin 20 mg tablet (Lipitor) 20 mg PO DAILY 02/10/18 01/13/23 donepezil 10 mg tablet 20 mg PO ONCE PM 12/16/22 01/13/23 memantine 5 mg tablet 5 mg PO BID 12/16/22 01/13/23 Previous Rx's Medication Instructions Recorded metoclopramide HCl 10 mg tablet 10 mg PO QACHS nausea, vomiting 09/18/21 (Reglan) #14 tabs omeprazole 20 mg capsule,delayed 20 mg PO DAILY #30 caps 09/18/21 release ondansetron 4 mg disintegrating 4 mg PO Q8H PRN nausea and 09/18/21 tablet vomiting #14 tabs sucralfate 100 mg/mL oral 10 ml PO QACHS #1,000 mL 09/19/21 suspension (Carafate) Allergies Allergy/AdvReac Type Severity Reaction Status Date / Time lisinopril [LISINOPRIL] Allergy Severe ANGIOEDEMA Verified 11/24/23 11:09 AND COUGH tizanidine [TIZANIDINE] Allergy Severe FACIAL Verified 11/24/23 11:09 SWELLING warfarin [From Coumadin] Allergy Unknown Verified 11/24/23 11:09 Review of Systems Review of Systems Narrative: See HPI Patient History Medical History Dementia Hypertension Surgical History History of gastric stapling Status post hysterectomy Social History household members: family Smoking Status: Current some day smoker Smoking Status: Current some day smoker tobacco type: cigarettes alcohol intake frequency: a few times a week Substance Use Type: does not use Exam Initial Vital Signs Initial Vital Signs: Vital Signs Pulse Rate 99 H 11/24/23 11:02 Pulse Oximetry 96 11/24/23 11:02 Const: Awake, alert, no acute distress, nontoxic appearing Cardiac: regular rate, regular rhythm RESP: unlabored, clear bilaterally, no wheezing GI: Soft, nontender, nondistended, no rebound, no guarding Rectal: Backend Python Developer present, pain with digital insertion, no gross blood, no hemorrhoids, soft brown stool Skin: Warm, Dry, intact, no rashes Neuro: AO x1, CN II-XII grossly intact, moves all extremities Course Orders Ordered: ED Orders 11/24/23 11:00 CBC Auto Diff [Complete Blood Count AUTO DIFF] Stat CMP [Comprehensive Metabolic Panel] Stat Lactate (Lactic Acid) Stat Lipase Stat MAG [Magnesium] Stat 11/24/23 11:07 CT abdomen pelvis w con Stat EKG-12 Lead Stat Levofloxacin (Levaquin) 750 mg in 150 mls @ 100 mls/hr IV NOW ONE Stop: 11/24/23 14:14 Discontinued Medications Sodium Chloride (Normal Saline 0.9%) 1,000 mls @ 1,000 mls/hr IV BOLUS ONE Stop: 11/24/23 12:05 Last Admin: 11/24/23 11:36 Dose: 1,000 mls/hr Vital Signs Vital signs: Vital Signs - 8 hr 11/24/23 11:02 11/24/23 11:04 11/24/23 11:30 Temperature 98 F Pulse Rate 99 H 96 H 91 H Respiratory Rate 12 21 Blood Pressure 163/73 H Pulse Oximetry 96 95 92 Oxygen Delivery Method Room Air 11/24/23 12:16 11/24/23 12:16 11/24/23 12:30 Temperature Pulse Rate 89 86 Respiratory Rate 21 23 Blood Pressure 160/78 H Pulse Oximetry 95 94 Oxygen Delivery Method 11/24/23 12:30 Temperature Pulse Rate Respiratory Rate Blood Pressure 151/77 H Pulse Oximetry Oxygen Delivery Method MDM - GI Bleed Differential Diagnosis Differential diagnosis: Likely hemorrhoids, infectious diarrhea and esophageal varices Lab Data 11/24/23 11:00 11/24/23 11:00 Labs: Lab Results 11/24/23 Range/Units 11:00 WBC 12.5 H (4.5-11.0) X10^3/uL RBC 4.30 (4.0-5.2) X10^6/uL Hgb 14.0 (12.0-16.0) g/dL Hct 41.7 (36-46) % MCV 97.1 (80-100) fL MCH 32.5 (26-34) PG MCHC 33.4 (30-36) % RDW 13.6 (11.6-14.8) % Plt Count 204 (150-400) X10^3/uL Neut % (Auto) 90.2 H (50-75) % Lymph % (Auto) 4.0 L (25-40) % [place] % (Auto) 5.4 (3-14) % Eos % (Auto) 0.0 L (2-4) % Baso % (Auto) 0.4 (0-2) % Neut # (Auto) 80640 H (7487-5009) /uL Lymph # (Auto) 500 L (5151-8577) /uL [place] # (Auto) 700 (0-900) /uL Eos # (Auto) 0 (0-450) /uL Baso # (Auto) 100 (0-100) /uL Sodium 148 H (137-145) mmol/L Potassium 4.2 (3.4-5.1) mmol/L Chloride 109 H (98-107) mmol/L Carbon Dioxide 30 (22-32) mmol/L BUN 46 H (7-17) mg/dL Creatinine 1.45 H (0.52-1.04) mg/dL Estimated GFR 37 L (>60) mL/min BUN/Creatinine Ratio 31.7 H (6-22) Glucose 172 H (80-110) mg/dL Lactate 2.0 (0.7-2.1) mmol/L Calcium 10.3 H (8.4-10.2) mg/dL Magnesium 2.1 (1.6-2.3) mg/dL Total Bilirubin 1.8 H (0.2-1.3) mg/dL AST 26 (14-36) IU/L ALT 14 (<35) IU/L Alkaline Phosphatase 62 (38-126) U/L Total Protein 8.4 H (6.3-8.2) g/dL Albumin 4.9 (3.5-5.0) g/dL Globulin 3.5 (1.7-4.1) g/dL Albumin/Globulin Ratio 1.4 (1.0-2.8) Lipase 84 (23-300) U/L Imaging Data CT scan - abdomen/pelvis: Radiologist's Impression: PROCEDURE: CT ABDOMEN PELVIS W CON INDICATIONS: RECTAL PAIN, ABD PAIN, 'COFFEE GROUND EMESIS THIS AM' TECHNIQUE: After the administration of intravenous contrast, axial sections acquired from the lung bases to the pubic symphysis. Coronal and sagittal reformats were performed. For radiation dose reduction, the following was used: automated exposure control, adjustment of mA and/or kV according to patient size. COMPARISON: [facility], CT, CT ABDOMEN PELVIS W CON, 02/28/2023, 22:52. FINDINGS: Image quality: Diagnostic. Lower Chest: Scattered small infiltrate/atelectasis in bilateral lung bases are seen. No pleural effusion or pneumothorax. Heart size is normal, no pericardial effusion. ABDOMEN: Liver: No solid mass. Gallbladder: Multiple calcified stones are seen in dependent portion of gallbladder lumen. No significant gallbladder wall thickening. Biliary ducts: No biliary dilation. Pancreas: No ductal dilation. Spleen: Size is within normal limits. Adrenal Glands: No adrenal nodules. Kidneys and Ureters: No hydronephrosis. No solid mass. No complex renal cystic lesion which requires follow up. Stomach and Bowel: There is prior gastric bypass surgery with postsurgical changes. Left lower quadrant small bowel anastomosis is again seen and unchanged. A few fluid distended small bowel loops are noted in left lower quadrant adjacent to the anastomosis without definite zone of transition. Questionable mild small bowel wall thickening in left lower quadrant adjacent to the anastomosis is seen. There is suggestion of diffuse rectal wall thickening without drainable abscess collection. No other area of abnormal colonic wall thickening is seen. Peritoneum: No abnormal intraperitoneal fluid. No free air. Ventral Wall: No significant ventral hernia. Abdominal Nodes: No retroperitoneal or mesenteric adenopathy by size criteria. Vessels: Aorta and inferior vena cava are normal in size. [id number] atherosclerotic calcifications in abdominal aorta is seen. PELVIS: Pelvic Organs: Unremarkable. Bladder: No bladder wall thickening, accounting for underdistention. Pelvic Nodes: No enlarged lymph nodes. Miscellaneous: No inguinal hernias are seen. Bones: No aggressive osseous abnormality. No acute vertebral body compression fracture. Grade 1 anterolisthesis of L4 on L5 is seen. IMPRESSION: 1. Postsurgical changes again seen in stomach and left lower quadrant unchanged from prior study. Nonspecific fluid distended small bowel loops adjacent to surgical anastomosis in left lower quadrant with questionable wall thickening. No discrete zone of transition is noted. Finding may represent mild ileus and enteritis, suggest clinical correlation. 2. Diffuse rectal wall thickening suggestive of proctitis. No discrete drainable abscess collection. No peritoneal free fluid or free air. 3. Cholelithiasis without CT evidence of acute cholecystitis. No biliary ductal dilatation. 4. Ill-defined patchy airspace opacities scattered in bilateral lower lung crespo suggestive of scattered bilateral lower lobe infiltrates. Dictated by: Gabriel Orozco M.D. on 11/24/2023 at 12:09 Approved by: Gabriel Orozco M.D. on 11/24/2023 at 12:15 [facility] Narrative Medical decision making narrative: Nontoxic appearing patient with multiple complaints, family his chief concern is the rapid decline in energy and mental status over the last week. Patient has tenderness with rectal exam but no gross blood. No reproducible tenderness to light or deep palpation on abdominal exam. Laboratory work shows WBC count 12.5, hemoglobin 14.0, platelets 204, sodium 148, potassium 4.2, creatinine 1.45, glucose 172, calcium 10.3, T bili 1.8, AST 26, ALT 14, alk phos 62. Hypernatremia likely from poor p.o. intake over the last several days, however patient's creatinine appears to be at her baseline. CT of the abdomen and pelvis shows rectal wall thickening suggestive of proctitis. No abscess or fluid collection identified. Patient has numerous large gallstones without evidence of acute cholecystitis or biliary ductal dilation. Patient does have mild increase in bilirubin, however she has no abdominal tenderness or other symptoms of cholecystitis. There are patchy airspace opacity seen in the bilateral bases suggestive of infiltrate. Patient initially does not complain of shortness of breath, however family state that she does get short of breath with exertion. To cover both respiratory and GI bugs a dose of IV Levaquin was ordered. Patient accepted for observation [facility] Dr. Varghese Discharge Plan Departure Patient Disposition: Admitted as Observation Clinical Impression: Acute proctitis, Acute hypernatremia, Dementia Prescriptions: No Action atorvastatin [Lipitor] 20 mg tablet 20 mg PO DAILY metoclopramide HCl [Reglan] 10 mg tablet 10 mg PO QACHS Qty: 14 0RF ondansetron 4 mg tablet,disintegrating 4 mg PO Q8H PRN (Reason: nausea and vomiting) Qty: 14 0RF omeprazole 20 mg capsule,delayed release(DR/EC) 20 mg PO DAILY Qty: 30 0RF sucralfate [Carafate] 100 mg/mL suspension 10 ml PO QACHS Qty: 1000 0RF donepezil 10 mg tablet 20 mg PO ONCE PM memantine 5 mg tablet 5 mg PO BID Referrals: Sunil Varghese MD [Primary Care Provider] - Admit Date/Time: 11/24/23 13:00 Admit Provider: Sunil Varghese
[2023-11-24 11:17] LABS: Add Manual Diff / Slide Review NO; Basophils Absolute Auto 100 /uL (0-100); Basophils Percent Auto 0.4 % (0-2); Eosinophils Absolute Auto 0 /uL (0-450); Hematocrit 41.7 % (36-46); Lymphocytes Absolute Auto 500 /uL (1100-4500); Mean Corpuscular HGB Conc 33.4 % (30-36); Mean Corpuscular Hemoglobin 32.5 PG (26-34); Mean Corpuscular Volume 97.1 fL (80-100); Monocytes Absolute Auto 700 /uL (0-900); Monocytes Percent Auto 5.4 % (3-14); Neutrophils Absolute Auto 11200 /uL (1500-7000); Neutrophils Percent Auto 90.2 % (50-75); Platelet Count 204 X10^3/uL (150-400); Red Cell Distribution Width 13.6 % (11.6-14.8); White Blood Cell Count 12.5 X10^3/uL (4.5-11.0)
--- NOTE | 2023-11-24 11:25 | EKG_ITS ---
[facility] [address] [place] [address] Test Date: 2023-11-24 Pat Name: Sammie Guevara Department: [facility] Room: Gender: Female Pediatric Lpn: AGNES : 1945 Requested By: Order Number: [id number] Reading MD: Bijan Guzman MD Measurements Intervals [place] Rate: 88 P: 50 MS: 142 QRS: 1 QRSD: 82 T: 43 QT: 352 QTc: 425 Interpretive Statements Normal sinus rhythm Minimal voltage criteria for LVH, may be normal variant ( R in aVL ) Nonspecific ST and T wave abnormality NO SIGNIFICANT CHANGE FROM PRIOR TRACING Electronically Signed On 11-25-2023 7:52:20 PDT by Bijan Guzman MD
[2023-11-24 11:28] LABS: Alanine Aminotransferase 14 IU/L (<35); Albumin 4.9 g/dL (3.5-5.0); Albumin Globulin Ratio 1.4 (1.0-2.8); Alkaline Phosphatase 62 U/L (38-126); Aspartate Aminotransferase 26 IU/L (14-36); BUN Creatinine Ratio 31.7 (6-22); Bilirubin Total 1.8 mg/dL (0.2-1.3); Blood Urea Nitrogen 46 mg/dL (7-17); Calcium 10.3 mg/dL (8.4-10.2); Carbon Dioxide 30 mmol/L (22-32); Chloride 109 mmol/L (98-107); Estimated Glomerular Filt Rate 37 mL/min (>60); Globulin 3.5 g/dL (1.7-4.1); Glucose 172 mg/dL (80-110); HEMOLYSIS < 15 (0-50); Lipase 84 U/L (23-300); Magnesium 2.1 mg/dL (1.6-2.3); Potassium 4.2 mmol/L (3.4-5.1); Sodium 148 mmol/L (137-145); Total Protein 8.4 g/dL (6.3-8.2)
[2023-11-24] MEDS: SODIUM CHLORIDE 0.9% 1,000 ML 1000 ML IV (11:36)
[2023-11-24] MEDS: levoFLOXacin 750 MG/150 ML PIGGYBACK 100 MG IV (13:05)
--- NOTE | 2023-11-24 14:44 | PC.NURSE ---
Day shift: Pt in room from ED at approx 1430. Alert to self and very pleasant at this time. Pt seen by Dr Varghese. Family at bedside and was at bedside whe MD in room so they are aware of the plan. Pt will be a high fall and bedalarm is on. Call light in reach as well. Awaiting new MD moreno from Dr Varghese.
--- NOTE | 2023-11-24 15:28 | P.HP_ITS ---
History of Present Illness History of Present Illness Date Patient Seen: 11/24/23 Time Patient Seen: 14:00 Chief complaint: cough up something looking like coffee grounds Narrative: Pt presented to ED at behest of my office after calls from concerned family. Daughter and granddaughter at bedside today with grossly confused patient who is conversant but generally disoriented. She denies any pain but family does note some coffee ground bowel output of late. Family reports she has had an acute decline in last month from previously stably impaired/demented baseline. Denies falls, no trauma evident. [facility] Medical History Dementia Hypertension Surgical History History of gastric stapling Status post hysterectomy Social History household members: family Smoking Status: Current some day smoker Meds Home Medications and Allergies Home Medications Medication Instructions Recorded Confirmed Type acetaminophen 325 mg tablet 650 mg PO Q6H PRN Pain, Mild 11/24/23 11/24/23 History (Tylenol) Allergies Allergy/AdvReac Type Severity Reaction Status Date / Time lisinopril [LISINOPRIL] Allergy Severe ANGIOEDEMA Verified 11/24/23 11:09 AND COUGH tizanidine [TIZANIDINE] Allergy Severe FACIAL Verified 11/24/23 11:09 SWELLING warfarin [From Coumadin] Allergy Unknown Verified 11/24/23 11:09 Review of Systems Review of Systems Narrative: all systems reviewed and negative except as otherwise documented in HPI Exam Vital Signs (past 8 hours): - 11/24/23 11:02 11/24/23 11:04 11/24/23 11:30 Temperature 98 F Pulse Rate 99 H 96 H 91 H Respiratory Rate 12 21 Blood Pressure 163/73 H Pulse Oximetry 96 95 92 Oxygen Delivery Method Room Air 11/24/23 12:16 11/24/23 12:16 11/24/23 12:30 Temperature Pulse Rate 89 86 Respiratory Rate 21 23 Blood Pressure 160/78 H Pulse Oximetry 95 94 Oxygen Delivery Method 11/24/23 12:30 11/24/23 13:00 11/24/23 13:00 Temperature Pulse Rate 84 Respiratory Rate 20 Blood Pressure 151/77 H 150/73 H Pulse Oximetry 93 Oxygen Delivery Method 11/24/23 13:30 11/24/23 13:30 11/24/23 14:00 Temperature Pulse Rate 84 84 Respiratory Rate 19 22 Blood Pressure 136/70 Pulse Oximetry 94 95 Oxygen Delivery Method 11/24/23 14:00 Temperature Pulse Rate Respiratory Rate Blood Pressure 136/63 Pulse Oximetry Oxygen Delivery Method Oxygen Delivery Method Room Air Narrative Exam Narrative: pleasant laying in bed with family at bedside HENMT Other: normocephalic atraumatic Resp Other: moving air well bilaterally, maybe some junky lung noises in lower bases, not requiring supplemental O2 Cardio Other: regular rate, S1/S2, well perfused GI Other: soft active bowel sounds mildly tender to palpation nonlocalized Skin Other: normal turgor Neuro Other: oriented to self and daughter but not location situation doctor. moving all limbs no lateralizing features Extrem Other: no pedal edema Objective Labs 11/24/23 11:00 11/24/23 11:00 Labs: Laboratory Results - last 24 hr 11/24/23 11:00 WBC 12.5 H RBC 4.30 Hgb 14.0 Hct 41.7 MCV 97.1 MCH 32.5 MCHC 33.4 RDW 13.6 Plt Count 204 Neut % (Auto) 90.2 H Lymph % (Auto) 4.0 L [place] % (Auto) 5.4 Eos % (Auto) 0.0 L Baso % (Auto) 0.4 Neut # (Auto) 32635 H Lymph # (Auto) 500 L [place] # (Auto) 700 Eos # (Auto) 0 Baso # (Auto) 100 Sodium 148 H Potassium 4.2 Chloride 109 H Carbon Dioxide 30 BUN 46 H Creatinine 1.45 H Estimated GFR 37 L BUN/Creatinine Ratio 31.7 H Glucose 172 H Lactate 2.0 Calcium 10.3 H Magnesium 2.1 Total Bilirubin 1.8 H AST 26 ALT 14 Alkaline Phosphatase 62 Total Protein 8.4 H Albumin 4.9 Globulin 3.5 Albumin/Globulin Ratio 1.4 Lipase 84 Assessment & Plan Assessment & Plan narrative: #leukocytosis #proctitis, colitis, bilateral pneumonia, possible UTI? Actual issue here is a bit elusive as there are multiple possible problems continue levaquin and IVF #coffee ground emesis per report, hemoglobin levels are ok today, will watch in take and output here, some gut inflammation noted without specific findings suspect infectious cause will tx as above and feed enterally #hypernatremia in setting of hot summer week, will hydrate with 1/2NS and recheck in a.m. Dispo: admit obsv for fluids and abx PCP: Halima Code: Full MDM: Adriana [phone] Diet: general DVT: Time-Based Coding :: [TOTAL MINUTES] spent with patient and on the chart (including review of chart, obtaining history, exam, reviewing outside data, placing orders, documenting exam and treatment plan, and counseling patient) on [DATE].
[2023-11-24] MEDS: SODIUM CHLORIDE 0.45% 1,000 ML 100 ML IV (15:53)
[2023-11-24 17:56] LABS: Appearance Urine UA CLEAR; Bilirubin Urine UA 1+ (NEGATIVE); Color Urine UA YELLOW; Glucose Urine UA NEGATIVE (Negative); Ketones Urine UA TRACE (NEGATIVE); Leukocyte Esterase Urine UA TRACE (NEGATIVE); Nitrite Urine UA NEGATIVE (Negative); Occult Blood Urine UA 1+ (Negative); Protein Urine UA 1+ (Negative); Urobilinogen Urine UA 0.2 E.U./dL (0.2)
[2023-11-24 18:06] LABS: Bacteria Urine Moderate (10-30); RBC Urine 1-5/HPF (0-5/HPF); Urine Volume 10mL (spun); WBC Urine 5-10/HPF (0-5/HPF)
[2023-11-24 18:07] LABS: Amorphous Sediment Urine 1+; Culture Indicated Urine Specimen Cultured; Squamous Epithelial Cell Urine 5-10 /HPF (0-5/HPF)
[2023-11-24 18:18] LABS: Ictotest Urine Negative (Negative)
[2023-11-24] MEDS: DOCUSATE 100 MG CAPSULE PO (20:45)
[2023-11-24] MEDS: ACETAMINOPHEN 325 MG TABLET 650 MG PO (20:45)
[2023-11-25] MEDS: hydrOXYzine HCL 25 MG TABLET PO ×3 (00:28→21:26)
[2023-11-25] MEDS: SODIUM CHLORIDE 0.45% 1,000 ML 100 ML IV (01:50)
[2023-11-25 08:00] VITALS: BP 139/71; PULSE 54; RESP 17; TEMP 37.1; O2SAT 93
[2023-11-25 08:17] VITALS: O2SAT 96
[2023-11-25 08:44] LABS: Add Manual Diff / Slide Review NO; Basophils Absolute Auto 0 /uL (0-100); Basophils Percent Auto 0.4 % (0-2); Eosinophils Absolute Auto 100 /uL (0-450); Eosinophils Percent Auto 1.5 % (2-4); Hematocrit 34.3 % (36-46); Hemoglobin 11.8 g/dL (12.0-16.0); Lymphocytes Absolute Auto 900 /uL (1100-4500); Lymphocytes Percent Auto 15.4 % (25-40); Mean Corpuscular HGB Conc 34.3 % (30-36); Mean Corpuscular Volume 96.1 fL (80-100); Monocytes Absolute Auto 300 /uL (0-900); Monocytes Percent Auto 5.2 % (3-14); Neutrophils Absolute Auto 4600 /uL (1500-7000); Neutrophils Percent Auto 77.5 % (50-75); Platelet Count 154 X10^3/uL (150-400); Red Blood Cell Count 3.57 X10^6/uL (4.0-5.2); White Blood Cell Count 5.9 X10^3/uL (4.5-11.0)
[2023-11-25 08:59] LABS: Alanine Aminotransferase 9 IU/L (<35); Albumin 3.6 g/dL (3.5-5.0); Albumin Globulin Ratio 1.2 (1.0-2.8); Alkaline Phosphatase 47 U/L (38-126); Aspartate Aminotransferase 23 IU/L (14-36); BUN Creatinine Ratio 26.7 (6-22); Blood Urea Nitrogen 35 mg/dL (7-17); Calcium 9.1 mg/dL (8.4-10.2); Carbon Dioxide 30 mmol/L (22-32); Chloride 106 mmol/L (98-107); Estimated Glomerular Filt Rate 42 mL/min (>60); Globulin 2.9 g/dL (1.7-4.1); Glucose 97 mg/dL (80-110); HEMOLYSIS < 15 (0-50); Potassium 4.1 mmol/L (3.4-5.1); Sodium 138 mmol/L (137-145); Total Protein 6.5 g/dL (6.3-8.2)
[2023-11-25] MEDS: DOCUSATE 100 MG CAPSULE PO ×2 (09:22→21:26)
[2023-11-25] MEDS: SODIUM CHLORIDE 0.45% 1,000 ML 42 ML IV (11:31)
--- NOTE | 2023-11-25 11:33 | P.PN_ITS ---
Subjective Subjective Date Patient Seen: 11/25/23 Time Patient Seen: 09:00 Interval history: CC: It's nice to meet you. Feeling well this morning - labs much improved on IVF and abx - here with her daughter that lives with her today - saira reports she is getting back to her recent baseline mentally she is sitting up eating breakfast no problem. no bowel movement yet. Exam Vital Signs (past 8 hours): - 11/25/23 08:00 11/25/23 08:17 Temperature 98.7 F Pulse Rate 54 L Respiratory Rate 17 Blood Pressure 139/71 Pulse Oximetry 93 96 Oxygen Delivery Method Room Air Oxygen Flow Rate 0 Oxygen Delivery Method Room Air Oxygen Flow Rate 0 Narrative Exam Narrative: sitting in chair sipping coffee Resp Other: on RA, moving air well bilaterally, mild basilar rhonchi bilaterally Cardio Other: regular rate, s1/s2 well perfused GI Other: soft nontender normal bowel sounds Neuro Other: alert awake pleasantly disoriented conversant Extrem Other: no pedal edema Objective Labs 11/25/23 08:32 11/25/23 08:32 Labs: Laboratory Results - last 24 hr 11/24/23 11/25/23 17:00 08:32 WBC 5.9 D RBC 3.57 L Hgb 11.8 L Hct 34.3 L MCV 96.1 MCH 33.0 MCHC 34.3 RDW 13.0 Plt Count 154 Neut % (Auto) 77.5 H Lymph % (Auto) 15.4 L [place] % (Auto) 5.2 Eos % (Auto) 1.5 L Baso % (Auto) 0.4 Neut # (Auto) 4600 Lymph # (Auto) 900 L [place] # (Auto) 300 Eos # (Auto) 100 Baso # (Auto) 0 Sodium 138 D Potassium 4.1 Chloride 106 Carbon Dioxide 30 BUN 35 H Creatinine 1.31 H Estimated GFR 42 L BUN/Creatinine Ratio 26.7 H Glucose 97 Calcium 9.1 Total Bilirubin 1.0 AST 23 ALT 9 Alkaline Phosphatase 47 Total Protein 6.5 Albumin 3.6 Globulin 2.9 Albumin/Globulin Ratio 1.2 Urine Color Yellow Urine Appearance Clear Urine pH 5.0 Ur Specific [place] 1.010 Urine Protein 1+ H Urine Glucose (UA) Negative Urine Ketones Trace H Urine Occult Blood 1+ H Urine Nitrate Negative Urine Bilirubin 1+ H Ur Bilirubin Confirm Negative Urine Urobilinogen 0.2 Ur Leukocyte Esterase Trace H Urine RBC 1-5/hpf Urine WBC 5-10/hpf H Ur Squamous Epith Cells 5-10 /hpf H Amorphous Sediment 1+ Urine Bacteria Moderate (10-30) H Ur Culture Indicated? Specimen cultured Vol Urine Centrifuged 10ml (spun) PFSH Medical History Dementia Hypertension Surgical History History of gastric stapling Status post hysterectomy Social History household members: family Smoking Status: Current some day smoker Assessment & Plan Assessment & Plan narrative: #leukocytosis #proctitis, colitis, bilateral pneumonia #UTI Multiple infectious sources all appear to be responding to levaquin continue levaquin and IVF probably transition to orals tomorrow #coffee ground emesis hgb remains stable, no further events since admission #hypernatremia Much improved, cutting fluids to 42mL/hr Dispo: likely home tomorrow on oral abx [facility]: [facility] PCP: Halima Code: Full MDM: Adriana [phone] Diet: general DVT: holding d/t poss bleed Time-Based Coding :: [TOTAL MINUTES] spent with patient and on the chart (including review of chart, obtaining history, exam, reviewing outside data, placing orders, documenting exam and treatment plan, and counseling patient) on [DATE].
--- NOTE | 2023-11-25 12:25 | OT.IP.EVAL ---
Past Medical History (Last Reviewed 11/24/23 @ 12:56 by Sarita Goetz MD) Dementia Hypertension Surgical History (Last Reviewed 11/24/23 @ 12:56 by Sarita Goetz MD) History of gastric stapling Status post hysterectomy Occupational Therapy Inpatient Evaluation/Re-Eval M1 PT/OT-IP Prior Functional Status Start: 11/25/23 12:41 Freq: NEEDED Status: Active Protocol: Document 11/25/23 12:43 [facility] (Rec: 11/25/23 13:09 [facility] [id number]) Medical Review Prior Functional Status Communication Pt has dementia baseline Mobility and Gait Pt is independent with out a device. Activities of Daily Living and IADL's Pt able to do ADL needs and has assist for all IADL needs. Social History Household Members family Living Arrangements House Number of Floors (Floors) Two Floors Number of Stairs To Enter/Railing? Threshold to get into the house and one flight of stairs with rail to get to the bedroom. Home Environment Standard Height Toilet,Tub/ Shower Additional Social History Comment Pt's is home alone for 8-9 hours while her daughter, Tony works . Prior pt had a caregiver that would come by twice a week for 2-3 hours, however no longer available as had a CVA 3 weeks ago. Pt's daughter states that pt has been getting worse with her mentation recently and more fatigued. M2 OT-IP Current Condition Start: 11/25/23 12:41 Freq: Status: Active Protocol: Document 11/25/23 12:43 [facility] (Rec: 11/25/23 13:09 [facility] [id number]) Occupational Therapy Current Condition Current Condition Evaluation Date 11/25/23 Treatment Diagnosis UTI, Bilateral PNA, Proctitis Diagnosis Onset Date 11/24/23 M3 OT- IP Subjective and Pain Start: 11/25/23 12:41 Freq: Status: Active Protocol: Document 11/25/23 12:43 [facility] (Rec: 11/25/23 13:09 [facility] [id number]) OT- Subjective Occupational Therapy Visit Type Type Initial Evaluation Visit Start Time 11:47 Visit Stop Time 12:25 Occupational Therapy Visit Comments Patient Comments Pt mainly just orientated to her name and talks about [place], where she is from originally. Patient/Caregiver Goals Pt's daughter realizes that pt needs 07/12 assist at this time. OT Pain Assessment Pain When Pain Assessed At Rest Pain Present Pain Present Denied Pain M4 OT- IP ADL's Start: 11/25/23 12:41 Freq: Status: Active Protocol: Document 11/25/23 12:43 [facility] (Rec: 11/25/23 13:09 [facility] [id number]) OT HMS-Ljpm-Zxriicl Comments OT Self-Feeding Comments NOt at meal time. OT ADL-Grooming General Evaluation Grooming Ability Standby Assistance Comments OT Grooming Comments Pt needing set-up assist and MAX vc for completeness. OT ADL-Oral Care General Eval Oral Care Ability Standby Assistance Areas of Assistance Brushing Teeth,Retrieving/Set- Up of Items Comments Oral Care Comments MAX vc for cues to use the automatic sink, otherwise cues to stay on track so able to brush her teeth. OT ADL-Dressing General Eval Lower Body Dressing Ability Moderate Assistance Comments OT Dressing Comments MODA to help saida underwear/ tight off her feet and MODA to get her brief on over her feet and up over her hips. OT ADL-Toileting General Evaluation Toileting Ability Moderate Assistance Areas Needing Assistance Manage Clothing,Perform Perineal Hygiene Comments OT Toileting Comments MAX vc for hygiene need to wipe from front to back and reach behind to get to her bottom. MODA for brief management needs. Pt unaware that she was wet at this time. OT ADL-Bathing Comments OT Bathing Comments Pt will need assist and benefit from use of shower chair at this time. M5 OT- IP IADL's Start: 11/25/23 12:41 Freq: Status: Active Protocol: Document 11/25/23 12:43 [facility] (Rec: 11/25/23 13:09 [facility] [id number]) OT-Instrumental Activities of Daily Living Home Safety Awareness Awareness of Need for Assistance at Home Decreased Awareness Ability to Problem Solve Emergency Unable to Problem Solve Situations Home Safety Comments Pt not able to recall how to call for help on her cell phone. Pt at this time not recognizing that a fire would be considered an urgent response. Medication Management Medication Management Caregiver Administers Money Management Money Management Caregiver Provides Assistance Meal Preparation Meal Preparation Caregiver Provides Assist Blanket Folder Blanket Folder Caregiver Provides Assist M6 OT- IP Functional Cognition Start: 11/25/23 12:41 Freq: Status: Active Protocol: Document 11/25/23 12:43 [facility] (Rec: 11/25/23 13:09 [facility] [id number]) Cognitive Factors Limiting Selfcare Function Cognitive Ability Level of Alertness Alert Patient Orientation Name Attention Span Ability Unable to Focus,Unable to Sustain Attention Ability to Follow Commands Able to Follow One Step Commands with Increased Time, Able to Follow One Step Commands with Repetition Memory Description Short Term 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 Pt however is not at her baseline for cognition as prior able to use her cell phone and today having no idea how to call for help if having an emergency. Pt's daughter aware that pt will need 07/12 assist at home at this time. M7 OT- IP Mobility and Balance Start: 11/25/23 12:41 Freq: Status: Active Protocol: Document 11/25/23 12:43 [facility] (Rec: 11/25/23 13:09 [facility] [id number]) OT-Transfer Assessment Sit to and From Stand Sit to and from Stand Standby Assistance,Contact Guard Assistance Transfers Transfer Ability Standby Assistance,Contact Guard Assistance Technique Transfer Destination Chair,Toilet Transfer Technique Stand Step Pivot Devices Transfer Assistive Devices None Comments Mobility Comments SBA to CGA due to at time needing assist for redirection due to her dementia. OT- Balance Assessment Sitting Balance and Reactions Static Sitting Balance Ability Normal Dynamic Sitting Balance Ability Good Standing Balance and Reactions Static Standing Balance Ability Good Dynamic Standing Balance Ability Good- M8 OT- IP Objective Assessments Start: 11/25/23 12:41 Freq: Status: Active Protocol: Document 11/25/23 12:43 [facility] (Rec: 11/25/23 13:09 [facility] [id number]) OT Gross Range of Motion Upper Extremity Range of Motion ROM Impairments WFL for needs OT Strength Comments Strength Comments WFL for needs OT- Coordination Assessment Comments Coordination Comments Increased time to open package for oral care needs. M9 OT- IP Assessment and Plan Start: 11/25/23 12:41 Freq: Status: Active Protocol: Document 11/25/23 12:43 [facility] (Rec: 11/25/23 13:09 [facility] [id number]) OT Summary Assessment and Plan Potential Rehabilitation Potential Fair Analytic Complexity at Evaluation Moderate Summary OT Impairments Balance,Functional Cognition, Functional Mobility,Dressing, Toileting,Bathing,Toilet Transfers,Shower Transfers, Activity Tolerance Progress Towards Goals Slow Progress due to Pain,Slow Progress due to Medical Issues,Slow Progress due to Activity Tolerance,Slow Progress due to Cognition Assessment Summary Pt MOD complexity and main barriers are worsening of her mentation more easily fatigued . Pt will benefit from 24/7 assist and home health at home otherwise would greatly benefit from memory care. Pt' s daughter is well aware of pt 's recent decline and that pt is not safe to be on her own. Prior pt at home alone for 8- 9 hours daily while her other daughter worked. Goals Self-Feeding Goal Standby Assistance Grooming Goal Standby Assistance Dressing Goal Standby Assistance Toileting Goal Standby Assistance Bathing Goal Standby Assistance Toilet Transfer Goal Standby Assistance Shower Transfer Goal Standby Assistance Days to Meet Goals 5 Frequency of Treatment Frequency Of Treatment Once a Day Treatment Plan OT Treatment Plan ADL Training,Functional Mobility,Patient/Family Education,Discharge Planning Discharge Recommendations OT Discharge Recommendations Home with 24/7 Assist Available,Home Health Home Equipment Needs shower chair Transportation Needs at Discharge Private Vehicle
--- NOTE | 2023-11-25 12:29 | PT-IP ANOTE ---
PT order received. OT speaks to PT after OT assesses pt and communicates that pt is confused and picking at dressings currently and may not be appropriate for skilled PT at this time. Will con't to monitor and initiate assessment at a later time. Per chart, pt with dementia and needs assistance at baseline.
--- NOTE | 2023-11-25 13:51 | CM.DANOTE ---
Initial DCP Assessment Note Pt is a 78 yo female, resident of [facility], patient with dementia potentially worsened by UTI, PNA and colitis infections. PCP: Sunil Varghese Payer: Cristian ELIAS Reviewed chart, patient is likely to be discharged over the next 24-48 hrs. Met w/patient and her daughter Zee, introduced self and role. Patient currently lives with her daughter Arin, who works. Patient is indp functionally and has been able to stay home alone, has a routine in her own environment. Daughter reports the stove has been unplugged for safety. 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 Arin is working today and may be able to visit patient after work today. Patient does not have an assigned DPOA; daughter Zee reports she and her sister will be working together on coordinating group home care options for their mom. Provided the senior resource guide, strongly encouraged a call [facility] to see what services are available to patient/daughter Arin right now. 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 CM team will plan to follow clinical course closely. Plan: Discharge home w/family via family pov. LTC resources discussed and material provided. ALEXANDRIA Powers Discharge Planning/Care Management CM Discharge Assessment Start: 11/25/23 13:33 Freq: Status: Active Protocol: Document 11/25/23 13:33 [facility] (Rec: 11/25/23 13:50 [facility] [id number]) Discharge Planning Assessment Assigned Hydrogen Plant Operations Manager ALEXANDRIA Peguero DPOA/Assigned Designee Name janiya Calzada Contact Information [phone] Advance Directives? No Advance Directives on File No History Provided By Patient,Family Member,Medical Record Prior Living Arrangements House Household Members family Type of transporation used prior to Relies on Others admit Independent with ADL's Yes Is patient alert and oriented? 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
[2023-11-25] MEDS: PANTOPRAZOLE DR 40 MG TABLET PO (15:18)
[2023-11-25 20:00] VITALS: BP 112/56; PULSE 85; RESP 18; TEMP 36.4; O2SAT 97
[2023-11-25 21:25] VITALS: O2SAT 96
[2023-11-26 05:30] LABS: Add Manual Diff / Slide Review NO; Basophils Absolute Auto 0 /uL (0-100); Basophils Percent Auto 0.7 % (0-2); Eosinophils Absolute Auto 200 /uL (0-450); Eosinophils Percent Auto 3.8 % (2-4); Hematocrit 31.8 % (36-46); Hemoglobin 11.2 g/dL (12.0-16.0); Lymphocytes Absolute Auto 900 /uL (1100-4500); Lymphocytes Percent Auto 19.5 % (25-40); Mean Corpuscular HGB Conc 35.1 % (30-36); Mean Corpuscular Hemoglobin 33.2 PG (26-34); Mean Corpuscular Volume 94.8 fL (80-100); Monocytes Absolute Auto 400 /uL (0-900); Monocytes Percent Auto 8.4 % (3-14); Neutrophils Absolute Auto 3300 /uL (1500-7000); Neutrophils Percent Auto 67.6 % (50-75); Platelet Count 160 X10^3/uL (150-400); Red Blood Cell Count 3.35 X10^6/uL (4.0-5.2); White Blood Cell Count 4.8 X10^3/uL (4.5-11.0)
[2023-11-26 05:52] LABS: Alanine Aminotransferase 9 IU/L (<35); Albumin 3.5 g/dL (3.5-5.0); Albumin Globulin Ratio 1.3 (1.0-2.8); Alkaline Phosphatase 45 U/L (38-126); Aspartate Aminotransferase 22 IU/L (14-36); BUN Creatinine Ratio 31.6 (6-22); Bilirubin Total 0.8 mg/dL (0.2-1.3); Blood Urea Nitrogen 42 mg/dL (7-17); Calcium 9.4 mg/dL (8.4-10.2); Carbon Dioxide 29 mmol/L (22-32); Chloride 108 mmol/L (98-107); Estimated Glomerular Filt Rate 41 mL/min (>60); Globulin 2.8 g/dL (1.7-4.1); Glucose 96 mg/dL (80-110); HEMOLYSIS < 15 (0-50); Potassium 3.8 mmol/L (3.4-5.1); Sodium 140 mmol/L (137-145); Total Protein 6.3 g/dL (6.3-8.2)
[2023-11-26] MEDS: PANTOPRAZOLE DR 40 MG TABLET PO (06:16)
[2023-11-26 07:00] VITALS: BP 144/95; PULSE 59; RESP 16; TEMP 37.4; O2SAT 95
[2023-11-26] MEDS: DOCUSATE 100 MG CAPSULE PO (09:54)
--- NOTE | 2023-11-26 10:28 | CM.DPNOTE ---
Addendum entered by ALEXANDRIA Bazzi 11/26/23 14:45: ADD: [facility] has accepted this referral. HH order and [facility] faxed Original Note: DC Note Patient has been discharged home. Met w/patient's daughter Zee at bedside. Zee explains that patient will be returning home with daughter Arin who is working to update patient's advanced directives/DPOA ppk and is working to complete the prison care medicaid application. Encouraged family to look into in home care emile and call [facility] to ask about available services that may be offered at no cost through the caregiver assistance program. Discussed HH and daughter feels HH RN will be helpful. Patient has [employer] MCR. Completed F2F and HH order and requests that [facility] send referrals to each HH agency asking if they accept [employer] MCR. Plan: Discharge home with family via family pov, HH services being attempted, family has no HH agency preference. ROSANA
--- NOTE | 2023-11-26 10:36 | DIET.CONS ---
Dietary Consultation Note Admission Date: 11/24/2023 13:00 Assessment: 78 y F with dementia and potential UTI, PNA, colitis infections. Nutrition screened for low MNA. Met with pt and daughter at bedside, who report decreased po intakes over past week (<75-50%), but eating normally now. No note of weight loss. Family works to support adequate intake through high protein options available (romansh yogurt, ensure MAX with coffee) and small freq meals. Pt w/ hx of gastric bypass in the 80s. NFPE not appropriate at this time. Ht: 154.94 cm Wt: 62.097 kg BMI: 25.8 UBW: 69.853 kg on 02/28/23 (-11% loss in 9 months, non-significant) Last BM: () MNA: 10 Clay Score: 20 Diet: 11/25/23 Breakfast General (Regular) Diet Diet Modifications: half portions only for all meals Food Texture: Level 7 - Regular Liquid Consistency: Level 0 - Thin Nutrition Percent Meal Consumed 100% 11/25/23 18:28 Percent Meal Consumed 75% 11/24/23 18:00 Labs: RBC 3.35 X10^6/uL (4.0-5.2) L 11/26/23 04:32 Hgb 11.2 g/dL (12.0-16.0) L 11/26/23 04:32 Hct 31.8 % (36-46) L 11/26/23 04:32 Creatinine 1.33 mg/dL (0.52-1.04) H 11/26/23 04:32 Lactate 2.0 mmol/L (0.7-2.1) 11/24/23 11:00 Nutrition Diagnosis: Inadequate oral intake r/t decreased ability to consume sufficient energy in setting of infections aeb <75% po intakes in last 5-7 days. Interventions: 1. Encouraged continuation of family's plan to support adequate intake/adequate protein intake w/ ons and small freq meals Monitoring/Evaluations: f/u prn Electronically Signed by: Rebekah Reyes 11/26/23 10:36 Clinical Dietitian [address] [id number]
--- NOTE | 2023-11-26 11:24 | P.DS_ITS ---
History of Present Illness History of Present Illness Date Patient Seen: 11/26/23 Time Patient Seen: 08:45 Chief complaint: cough up something looking like coffee grounds Narrative: Feeling well this morning seems about back to her usual per daughter at bedside today. Labs look good IV is out she is ready to go home with family. . Discharge Providers Provider Date of admission: 11/24/23 13:00 Discharge Date: 11/26/23 Primary care physician: Sunil Varghese MD Consults: 11/24/23 16:08 Consult to Occupational Therapy Evaluate & Treat Comment: Physician Instructions: Evaluate and treat Consult to Physical Therapy Evaluate & Treat Comment: Physician Instructions: Evaluate and Treat 11/26/23 10:28 Consult to Home Health Routine Comment: Reason For Exam: Home health services upon discharge Discharge provider: Sunil Varghese MD Summary Hospital Course Discharge Diagnosis: #leukocytosis #proctitis, colitis, bilateral pneumonia #UTI #acute delirium/metabolic encephalopathy #chronic dementia #coffee ground emesis #hypernatremia Hospital Course: Pt presented to ED at behest of my office after calls from concerned family due to acute confusion and coffee ground emesis. Family reports she has had an acute decline in last month from previously stably impaired/demented baseline. Denies falls, no trauma evident, labs did show leukocytosis with neutrophilic predominance as well as sundry inflammation and infectious signs per imaging plus what appeared to be a UTI. At baseline she is disoriented but conversant. She was treated with IVF and IV Levaquin and improved dramatically - she was back to baseline in a couple days per family who felt comfortable taking her home on a short course of oral levaquin. Will be following up with my office soon - reutrn precautions advised. Status at Discharge Cognitive/behavioral status at discharge: at baseline, confused Functional status at discharge: uses cane/walker Overall status at discharge: patient is back to baseline Exam Vital Signs (past 8 hours): - 11/26/23 07:00 11/26/23 07:00 11/26/23 07:00 Temperature 99.3 F Pulse Rate 59 L Respiratory Rate 16 Blood Pressure 144/95 H Pulse Oximetry 95 95 Oxygen Delivery Method Room Air Room Air Oxygen Flow Rate 0 0 Oxygen Delivery Method Room Air Oxygen Flow Rate 0 Narrative Exam Narrative: sitting up in chair looking out window chatting with daughter Resp Other: clear to auscultation bilaterally, on room air speaking full sentences Cardio Other: regular rate, S1/S2 GI Other: soft nontender active bowel sounds Neuro Other: alert awake disoriented, short/medium term memory absent, conversant and cooperative, moving all extremities equally Objective Labs 11/26/23 04:32 11/26/23 04:32 Labs: Laboratory Results - last 24 hr 11/26/23 04:32 WBC 4.8 RBC 3.35 L Hgb 11.2 L Hct 31.8 L MCV 94.8 MCH 33.2 MCHC 35.1 RDW 13.0 Plt Count 160 Neut % (Auto) 67.6 Lymph % (Auto) 19.5 L [place] % (Auto) 8.4 Eos % (Auto) 3.8 Baso % (Auto) 0.7 Neut # (Auto) 3300 Lymph # (Auto) 900 L [place] # (Auto) 400 Eos # (Auto) 200 Baso # (Auto) 0 Sodium 140 Potassium 3.8 Chloride 108 H Carbon Dioxide 29 BUN 42 H Creatinine 1.33 H Estimated GFR 41 L BUN/Creatinine Ratio 31.6 H Glucose 96 Calcium 9.4 Total Bilirubin 0.8 AST 22 ALT 9 Alkaline Phosphatase 45 Total Protein 6.3 Albumin 3.5 Globulin 2.8 Albumin/Globulin Ratio 1.3 PFSH Medical History Dementia Hypertension Surgical History History of gastric stapling Status post hysterectomy Social History household members: family Smoking Status: Current some day smoker Discharge Assessment & Plan Assessment and Plan Assessment: #leukocytosis #proctitis, colitis, bilateral pneumonia #UTI Multiple infectious sources all appear to be responding to levaquin continue levaquin oral course on dc #acute delirium/metabolic encephalopathy Much improved per my assessment and family's #chronic dementia back to baseline, conversant and interactive with family but not much short/medium term memory #coffee ground emesis hgb remains stable, no further events since admission #hypernatremia Much improved, fluids discontinued overnight she is taking fluid well by mouth Dispo: home with levaquin oral course to f/up outpt with PCP [facility] PCP: Halima Code: Full MDM: Adriana [phone] Diet: general DVT: holding d/t poss bleed Discharge Plan Discharge Plan Patient Disposition: Home Discharge orders & Medications Prescriptions: New levofloxacin 750 mg tablet 750 mg PO DAILY 5 Days Qty: 5 0RF Discontinued acetaminophen [Tylenol] 325 mg Tablet 650 mg PO Q6H PRN (Reason: Pain, Mild) Medication counseling provided by Pharmacist: Yes Follow up/Referrals: Sunil Varghese MD [Primary Care Provider] - Visit Report/Discharge Packet Stand Alone Forms: Patient Portal/API, Stroke Signs & Symptoms Discharge Data Primary Care Provider: Sunil Varghese Attending Provider: Sunil Varghese Admit Date/Time: 11/24/23 13:00
--- NOTE | 2023-11-26 11:35 | PT.IIE ---
Surgical History (Last Reviewed 11/24/23 @ 12:56 by Sarita Goetz MD) History of gastric stapling Status post hysterectomy Medical History (Last Reviewed 11/24/23 @ 12:56 by Sarita Goetz MD) Dementia Hypertension Physical Therapy Inpatient Evaluation/Re-Eval M1 PT/OT-IP Prior Functional Status Start: 11/25/23 07:59 Freq: NEEDED Status: Discharge Protocol: Document 11/26/23 11:35 AB (Rec: 11/26/23 14:01 AB [id number]) Medical Review Prior Functional Status Medical History Reviewed Yes Communication ablel to make needs known; has dx dementia Mobility and Gait daughter in room and confirmed pt's answers: pt stated that she was independent with all mobilities and ambulation without AD Activities of Daily Living and IADL's per OT note: Pt able to do ADL needs and has assist for all IADL needs. Social History Household Members family Living Arrangements House Number of Floors (Floors) Two Floors Number of Stairs To Enter/Railing? 1 step to enter 1 flight of steps with R rail ascending Home Environment Standard Height Toilet,Walk in Shower Home Equipment Straight Cane,Shower Seat with Backrest Additional Social History Comment pt lives with her daughter but daughter goes to work and pt is usually alone at home; another daughter lives close by and can also assist pt. daughter stated that they had a caregiver that comes in a few hours a day before to be with pt but currently is looking for a replacement M1 PT/OT-IP Prior Functional Status Start: 11/25/23 12:41 Freq: NEEDED Status: Discharge Protocol: Document 11/25/23 12:43 [facility] (Rec: 11/25/23 13:09 [facility] [id number]) Medical Review Prior Functional Status Communication Pt has dementia baseline Mobility and Gait Pt is independent with out a device. Activities of Daily Living and IADL's Pt able to do ADL needs and has assist for all IADL needs. Social History Household Members family Living Arrangements House Number of Floors (Floors) Two Floors Number of Stairs To Enter/Railing? Threshold to get into the house and one flight of stairs with rail to get to the bedroom. Home Environment Standard Height Toilet,Tub/ Shower Additional Social History Comment Pt's is home alone for 8-9 hours while her daugther works . Prior pt had a caregiver that would come by twice a week for 2-3 hours, however no longer available as had a CVA 3 weeks ago. Pt's daughter states that pt has been getting worse with her mentation recently. M2 PT-IP Current Condition Start: 11/25/23 07:59 Freq: NEEDED Status: Discharge Protocol: Document 11/26/23 11:35 AB (Rec: 11/26/23 14:01 AB [id number]) Physical Therapy Current Condition Current Condition Evaluation Date 11/26/23 Treatment Diagnosis colitis; proctitis; difficulty in walking Onset Date 11/24/23 M3 PT-IP Subjective Start: 11/25/23 07:59 Freq: NEEDED Status: Discharge Protocol: Document 11/26/23 11:35 AB (Rec: 11/26/23 14:01 AB [id number]) Subjective Physical Therapy Visit Type Type Initial Evaluation Visit Start Time 11:35 Visit Stop Time 11:50 Number of INVESTMENT COUNSELOR Visits 0 Physical Therapy Visit Comments Patient Comments agreeable to do PT Therapy Pain Assessment Pain Present Pain Present Denied Pain M4 PT-IP Mobility and Gait Start: 11/25/23 07:59 Freq: NEEDED Status: Discharge Protocol: Document 11/26/23 11:35 AB (Rec: 11/26/23 14:01 AB [id number]) PT-Bed Mobility Assessment Supine to Sit Supine to Sit Standby Assistance Sit to Supine Sit to Supine Standby Assistance PT-Transfer Assessment Sit to and From Stand Sit to and from Stand Standby Assistance Equipment Transfer Assistive Device None,Gait Belt Orthotic/Prosthetic Devices or Brace: No Comments Mobility Comments pt sitting on the chair and daughter in room. obtained PLOF and home set up from pt and daughter. pt with dx dementia and has slight confusion and needing cues for safety. pt completed sit to stand SBA and ambulated to EOB without AD SBA. completed bed mobility SBA. pt agreed to do stairs. pt ambulated in the hallway without AD ~ 250 ft SBA. completed up/down steps using R rail ascending SBA and also completed without rails SBA. pt ambulated back to her room SBA without AD and sat on bench with daughter. pt and daughter without further concerns. Gait Assessment Gait Gait Assistance Required: Standby Assistance Distance (Feet) 250 Able to Maintain Weight Bearing Status Yes During Gait Assistive Devices Assistive Device None Orthotic/Prosthetic Devices or Brace: No Factors Limiting Gait Function Factors Limiting Gait Function Poor Safety Awareness Stair Climbing Assessment Evaluation Level of Assist On Stairs Standby Assistance Devices Stair Climbing Assistive Devices Right Railing Technique/Endurance Stair Climbing Direction Ascend and Descend Stair Climbing Technique Step to Step Number of Steps Climbed 3 Query Text: Stair Climbing Set # Repetitions (reps) 2 PT-Balance Assessment Sitting Balance and Reactions Static Sitting Balance Ability Normal Dynamic Sitting Balance Ability Normal Standing Balance and Reactions Static Standing Balance Ability Good Dynamic Standing Balance Ability Good Device Used without AD M5 PT-IP Objective Assessments Start: 11/25/23 07:59 Freq: NEEDED Status: Discharge Protocol: Document 11/26/23 11:35 AB (Rec: 11/26/23 14:01 [id number]) Orientation Orientation/Cognition Level of Alertness Confusional State Orientation Name Safety Awareness Decreased Safety Awareness Memory Description Short Term Impaired,Retirement Impaired Gross Range of Motion Lower Extremity ROM Assessment Within Functional Limits Strength Lower Extremity Strength Assessment Within Functional Limits Sensation Assessment Sensation Gross Sensation WNL Muscle Tone Muscle Tone WNL Yes M6 PT-IP Treatment Start: 11/25/23 07:59 Freq: NEEDED Status: Discharge Protocol: Document 11/26/23 11:35 AB (Rec: 11/26/23 14:01 AB [id number]) Physical Therapy Treatment Education Education Provided Safety M7 PT-IP Assessment and Plan Start: 11/25/23 07:59 Freq: NEEDED Status: Discharge Protocol: Document 11/26/23 11:35 AB (Rec: 11/26/23 14:01 [id number]) PT Summary Assessment and Plan Potential Rehabilitation Potential Fair Status of Condition at Evaluation Stable Summary Impairments Pain,ROM,Strength,Balance, Coordination,Sensation,Tone, Cognition,Bed Mobility, Transfers,Gait,Activity Tolerance Assessment Summary pt is a 78 y/o F who is admitted for proctitis; colitis. pt requiring SBA for mobility without AD and occasional redirections for safety. pt with dx dementia affecting safety awareness. pt lives with her daughter. pt plans to go home and daughter to assist as needed. no further PT interventions indicated at this time. pt may go home when medically stable . Frequency of Treatment Frequency Of Treatment Discharge Recommendations To Nursing Amount of Assist Needed Standby Assistance Discharge Recommendations PT Discharge Recommendations Home with Assistance Transportation Needs at Discharge Private Vehicle
--- NOTE | 2023-12-06 09:33 | PC.NURSE ---
Late Entry: Levaquin infusion initiated 11/23 at 1305 complete at 1436.
== END 2023-11-26 11:53 | disposition home or self-care (01) ==
LOC: ED 11:45 → AC 13:00
PROVIDERS: Admitting Provider Family Medicine; Emergency Provider Emergency Medicine; PCP Family Medicine; Referring Provider Emergency Medicine; Visit Provider Family Medicine
DX: K92.0 Hematemesis (principal); F03.92 Unspecified dementia, unspecified severity, with psychotic disturbance; F05 Delirium due to known physiological condition; F17.210 Nicotine dependence, cigarettes, uncomplicated; N39.0 Urinary tract infection, site not specified; E87.0 Hyperosmolality and hypernatremia; D72.829 Elevated white blood cell count, unspecified; G93.41 Metabolic encephalopathy; J18.9 Pneumonia, unspecified organism; K52.9 Noninfective gastroenteritis and colitis, unspecified; K62.89 Other specified diseases of anus and rectum
CPT/HCPCS: 36415; 74177; 80053; 81001; 83605; 83690; 83735; 85025; 87086; 93005; 93010; 96361; 96365; 96366; 97161; 97166; 97535; 99283; 99284; G0378; A9270; J1956; J7050; Q9967